=== PATIENT | female | born 1935 | race Caucasian/White ===

== ENCOUNTER → 2017-06-26 12:28 | Outpatient (CLI) | payer MEDICARE, SELFPAY ==
--- NOTE | 2017-06-26 12:37 | XR_ITS ---
XR shoulder RT min 2V HISTORY: Right shoulder pain ITS.REASON: RT ARM PAIN ORDERING PHYSICIAN: Roya Trevino PATIENT AGE: 82 years COMPARISON: None FINDINGS: No fracture or dislocation. No lytic or blastic change. There is normal mineralization. Mild osteoarthritis of the glenohumeral joint. The acromion is somewhat low-lying with subacromial stenosis there is an old fracture of the right eighth rib. IMPRESSION: No acute finding. Mild osteoarthritic change
--- NOTE | 2017-06-26 12:37 | XR_ITS ---
XR humerus RT CLINICAL INDICATION: ITS.REASON: RT ARM PAIN ORDERING PHYSICIAN: Roya Trevino PATIENT AGE: 82 years COMPARISON: None FINDINGS: No obvious fracture or dislocation. No lytic or blastic change. Mild osteoarthritic changes are present at the glenohumeral joint. IMPRESSION: No acute finding. Mild osteoarthritis of the glenohumeral joint
== END ==
PROVIDERS: PCP Nurse Practitioner Family; Visit Provider Nurse Practitioner Family
DX: M79.621 Pain in right upper arm (principal)
CPT/HCPCS: 73030; 73060

== ENCOUNTER → 2018-01-30 16:30 | Outpatient (CLI) | payer MEDICARE, SELFPAY ==
[2018-01-30 18:07] LABS: Basophils # 0.1 K/mm3 (0-0.2); Basophils % 1.3 % (0.1-2.0); Eosinophils # 0.2 K/mm3 (0.0-0.4); Eosinophils % 5.2 % (0.1-12.0); Hemoglobin 14.5 g/dL (12.2-16.2); Lymphocytes # 1.3 K/mm3 (0.7-4.5); Lymphocytes % 29.5 K/mm3 (10-50); Mean Corpuscular HGB Conc 32.3 g/dL (31.8-35.4); Mean Corpuscular Hemoglobin 28.9 pg (27.0-31.2); Mean Corpuscular Volume 89.4 fl (81-99); Mean Platelet Volume 8.2 fl (7.4-10.4); Monocytes # 0.3 K/mm3 (0.1-1.0); Monocytes % 5.8 % (1.7-9.3); Neutrophils # 2.5 K/mm3 (1.8-7.8); Neutrophils % 58.2 % (37.0-80.0); Platelet Count 180 K/mm3 (142-424); Red Blood Count 5.04 M/mm3 (4.20-5.40); White Blood Count 4.4 K/mm3 (4.8-10.8)
[2018-01-30 20:16] LABS: Anion Gap 10.3 mEq/L (5-15); Blood Urea Nitrogen 28 mg/dL (7-18); Carbon Dioxide 32 mmol/L (21.0-32.0); Chloride 111 mmol/L (98-107); Creatinine,Serum 0.86 mg/dL (0.55-1.02); Estimated Glomerular Filt Rate 63 ml/min (>60); GFR (African American) 76 ML/MIN (>60); Glucose 88 mg/dL (74-106); Potassium 4.3 mmoL/L (3.5-5.1); Sodium 149 mmol/L (136-145); T4 (Thyroxine) 8.4 ug/dl (4.7-13.3); Thyroid Stimulating Hormone 1.86 uIU/ml (0.358-3.740)
== END ==
PROVIDERS: Visit Provider Emergency Medicine
DX: I49.9 Cardiac arrhythmia, unspecified (principal); R01.1 Cardiac murmur, unspecified
CPT/HCPCS: 80048; 84436; 84443; 85025

== ENCOUNTER → 2018-10-19 12:34 | Outpatient (CLI) | payer MEDICARE, SELFPAY ==
--- NOTE | 2018-10-19 12:43 | XR_ITS ---
XR knee RT 3V HISTORY: ITS.REASON: pain ORDERING PHYSICIAN: Sheree Santacruz APRN PATIENT AGE: 83 years COMPARISON: None FINDINGS: There are moderate to severe osteoarthritic changes of the medial compartment and patellofemoral joint. There is mild lateral tibial subluxation of 7 mm. No fracture or dislocation. IMPRESSION: Moderate to severe osteoarthritis
--- NOTE | 2018-10-19 12:43 | XR_ITS ---
XR shoulder RT min 2V HISTORY: ITS.REASON: pain ORDERING PHYSICIAN: Sheree Santacruz APRN PATIENT AGE: 83 years Comparison: 06/26/2017 FINDINGS: There is moderate subacromial stenosis which may be seen with rotator cuff pathology. No fracture or dislocation. No lytic or blastic change. Mild osteoarthritic change also noted of the glenohumeral joint. IMPRESSION: Mild osteoarthritis of glenohumeral joint with moderate subacromial stenosis
--- NOTE | 2018-10-19 12:43 | XR_ITS ---
XR knee LT 3V HISTORY: ITS.REASON: pain ORDERING PHYSICIAN: Sheree Santacruz APRN PATIENT AGE: 83 years COMPARISON: None FINDINGS: There are moderate to severe osteoarthritic changes of the medial compartment and patellofemoral joint. No fracture or dislocation. Osteosclerosis involves the proximal tibia medially. IMPRESSION: Moderate to severe osteoarthritis of the medial compartment
--- NOTE | 2018-10-19 12:43 | XR_ITS ---
XR chest 2V HISTORY: Shortness of breath ITS.REASON: copd ORDERING PHYSICIAN: Sheree Santacruz APRN PATIENT AGE: 83 years COMPARISON: 09/23/2013 FINDINGS: Mild cardiomegaly without failure. No lobar consolidation or collapse. Pericardial fat pad suspected on the left. Severe degenerative changes are present in the shoulders with subacromial stenosis. IMPRESSION: No acute finding.. Mild cardiomegaly.
== END ==
PROVIDERS: PCP Nurse Practitioner Family; Visit Provider Nurse Practitioner Family
DX: J44.9 Chronic obstructive pulmonary disease, unspecified (principal); R05 Cough; M25.50 Pain in unspecified joint
CPT/HCPCS: 71046; 73030; 73562

== ENCOUNTER → 2020-02-16 14:08 | Outpatient (CLI) | payer MEDICARE, SELFPAY ==
[2020-02-17 11:06] LABS: Chloride 106 mmol/L (98-107); Potassium 3.9 mmoL/L (3.5-5.1); Sodium 143 mmol/L (136-145)
[2020-02-17 11:08] LABS: Blood Urea Nitrogen 20 mg/dl (7-17); Estimated Glomerular Filt Rate 68 ml/min (>60); GFR (African American) 83 ML/MIN (>60)
[2020-02-17 11:09] LABS: Alanine Aminotransferase 7 U/L (12-78); Albumin Level 3.3 g/dl (3.5-5.0); Albumin/Globulin Ratio 1.1 (1.1-1.8); Alkaline Phosphatase 61 U/L (38-126); Anion Gap 9.9 mEq/L (5-15); Aspartate Amino Transferase 22 U/L (14-36); Bilirubin,Total 0.7 mg/dl (0.2-1.3); Calcium 8.9 mg/dl (8.4-10.2); Carbon Dioxide 31 mmol/L (22.0-30.0); Cholesterol 167 mg/dl (140-200); Glucose 111 mg/dl (74-100); Total Protein,Serum 6.3 g/dl (6.3-8.2); Triglycerides 89 mg/dl (30-150); VLDL Cholesterol 18 mg/dL (0-40)
[2020-02-17 11:10] LABS: Chol/HDL Ratio 3.3 (1-3.5); HDL Cholesterol 50 mg/dl (40-60)
[2020-02-17 11:12] LABS: Basophils # 0.1 K/mm3 (0-0.2); Basophils % 1.9 % (0.1-2.0); Eosinophils # 0.2 K/mm3 (0.0-0.4); Eosinophils % 5.7 % (0.1-12.0); Hematocrit 45.9 % (37.0-47.0); Hemoglobin 14.9 g/dL (12.2-16.2); Lymphocytes # 1.2 K/mm3 (0.7-4.5); Lymphocytes % 30.8 % (10-50); Mean Corpuscular HGB Conc 32.6 g/dL (31.8-35.4); Mean Corpuscular Hemoglobin 29.9 pg (27.0-31.2); Mean Corpuscular Volume 91.7 fl (81-99); Mean Platelet Volume 10.1 fl (7.4-10.4); Monocytes # 0.3 K/mm3 (0.1-1.0); Monocytes % 7.3 % (1.7-9.3); Neutrophils # 2.2 K/mm3 (1.8-7.8); Neutrophils % 54.3 % (37.0-80.0); Platelet Count 160 K/mm3 (142-424); Red Cell Distribution Width 13.3 % (11.5-17.5)
[2020-02-17 11:21] LABS: Direct LDL Cholesterol 100.33 mg/dL (100-129)
[2020-02-17 11:26] LABS: T4 (Thyroxine) 8.5 ug/dl (5.53-11.0)
== END ==
PROVIDERS: Visit Provider Physician Assistant
DX: I10 Essential (primary) hypertension (principal)
CPT/HCPCS: 80053; 80061; 84436; 84443; 85025

== ENCOUNTER → 2020-03-01 14:27 | Outpatient (CLI) | payer MEDICARE, SELFPAY ==
--- NOTE | 2020-03-01 14:33 | XR_ITS ---
PROCEDURE: XR CHEST 2V CLINICAL HISTORY: Pain in left lung COMPARISON: CR CXR CHEST(2 VIEWS-NOT PORTABLE) from 09/23/2013 FINDINGS: The cardiomediastinal silhouette and pulmonary vascularity are within normal limits. Right hemidiaphragm is slightly elevated. There is mild patient rotation to the right causing some prominence of the right hilum. No lobar consolidation or collapse. No acute bony findings. There is mild thoracic kyphosis not significantly changed. IMPRESSION: No change with no acute finding Dictated by: Rob Hastings MD 03/01/2020 16:13 Rob Hastings MD in [facility] 03/01/2020 16:13
--- NOTE | 2020-03-01 14:33 | US_ITS ---
PROCEDURE: US THYROID CLINICAL INDICATION: Nodule right side of neck COMPARISON: CR XR CHEST 2V from 03/01/2020 FINDINGS: Right lobe: The right lobe is 3 x 1.3 x 1.3 cm. Unremarkable appearance Left lobe: 3 x 1.3 x 1.3 cm. A 16 x 12 by 11 mm solid-appearing nodules present in the mid polar region of the left lobe Isthmus: There is a mixed cystic and solid lesion involving the mid aspect of the isthmus projecting inferiorly. This measures 3 x 2.5 x 1.3 cm and is isoechoic. No calcifications. Well-defined margin. Wider than tall. There appears to be some internal calcifications. Additional findings: IMPRESSION: TR level 3 solid nodule left lobe. Less than 2.5 cm. Recommend six-month follow-up. TR level 3 nodule of the isthmus greater than 2.5 cm. Recommend fine needle aspiration. Dictated by: Rob Hastings MD 03/01/2020 18:05 Rob Hastings MD in [facility] 03/01/2020 18:05
== END ==
PROVIDERS: PCP Physician Assistant; Visit Provider Physician Assistant
DX: R07.89 Other chest pain (principal); R22.1 Localized swelling, mass and lump, neck
CPT/HCPCS: 71046; 76536

== ENCOUNTER → 2020-03-16 09:41 | Outpatient (CLI) | payer MEDICARE, SELFPAY ==
--- NOTE | 2020-03-16 09:59 | US_ITS ---
PROCEDURE: US FNA THYROID CLINICAL INDICATION: THYROID NODULE COMPARISON: US US THYROID from 03/01/2020 TECHNIQUE: Following obtaining informed consent, using aseptic technique and local anesthesia with buffered lidocaine, fine-needle aspiration was performed of the nodule of interest using sonographic guidance. Four passes were made into the nodule 3 with a 21 gauge needle and 1 with a 25 gauge needle. The specimen was very bloody. Specimen was given to cytology. The patient tolerated the procedure well without evidence of immediate complications and left the ultrasound suite in stable condition. FINDINGS: Complex nodule the isthmus noted as before targeted for biopsy. CYTOLOGY: Negative for malignant cells. Please see microscopic description. There are very rare follicular cells. Pathologist notes if there is a solid component additional sampling may be of value. There is a solid and cystic component to the nodule. IMPRESSION: Uneventful FNA of the isthmus nodule negative for malignant cells. The specimen was very bloody. Cytology suggested consistent with a cyst. Please see cytology report further recommendations Dictated by: Rob Hastings MD 04/07/2020 13:15 Rob Hastings MD in [place] 04/07/2020 13:15
== END ==
PROVIDERS: PCP Physician Assistant; Visit Provider Physician Assistant
DX: E04.1 Nontoxic single thyroid nodule (principal)
CPT/HCPCS: 10005; 76942; 88173; 88305

== ENCOUNTER 2021-03-20 12:08 | Inpatient (IN) | payer MEDICARE, SELFPAY ==
[2021-03-20] VITALS (9 sets, daily range): BP systolic 130–159; BP diastolic 60–85; PULSE 61–77; RESP 16–19; TEMP 36.6–37.4; O2SAT 92–98; BMI 34.7; BMI 32.2
--- NOTE | 2021-03-20 12:04 | HMH.EDGENADL ---
ED Disposition Clinical Impression: Confusion UTI (urinary tract infection) Qualifiers: Urinary tract infection type: acute pyelonephritis Qualified Code(s): N10 - Acute pyelonephritis Disposition: Admitted As Inpatient Condition on Discharge: Good Time of Disposition: 14:04 - Critical Care Critical Care Time: No Attestation: On , the high probability of a clinically significant, sudden or life threatening deterioration of the following system(s) required my full and direct attention, intervention and personal management. The time I documented below is in addition to time spent performing reported procedures but includes the following listed in this critical care notation. Medical Decision Making - Medical Records Medical records reviewed: Yes: I reviewed the patient's medical records. - Joe Inquiry Pt receiving controlled substance: No Vital Signs: 03/20/21 12:00 03/20/21 12:30 03/20/21 13:00 Temperature 99.3 F Temperature Source Oral Pulse Rate 65 64 Pulse Rate [Radial] 74 Respiratory Rate 18 Blood Pressure [Right Arm] 159/72 H Blood Pressure Mean [Right Arm] 101 Blood Pressure Position [Right Arm] Sitting 02 Sat by Pulse Oximetry 93 L 95 93 L Oxygen Delivery Method Room Air - Lab Data Lab results reviewed: Yes: I reviewed the patient's lab results. Lab Results 03/20/21 12:15: WBC 3.1 L, RBC 5.20, Hgb 15.0, Hct 47.5 H, MCV 91.4, MCH 28.8, MCHC 31.6 L, RDW 13.5, Plt Count 116 L, MPV 9.9, Neut % (Auto) 54.3, Lymph % (Auto) 33.7, Concho % (Auto) 8.9, Eos % (Auto) 1.1, Baso % (Auto) 2.1 H, Neut # (Auto) 1.7 L, Lymph # (Auto) 1.0, Concho # (Auto) 0.3, Eos # (Auto) 0.0, Baso # (Auto) 0.1 03/20/21 12:15: Sodium 140, Potassium 3.6, Chloride 100, Carbon Dioxide 34 H, Anion Gap 9.6, BUN 12, Creatinine 0.70, Estimated Creat Clear 56, Estimated GFR 80, Est GFR ( Amer) 96, Glucose 92, Calcium 8.2 L 03/20/21 13:29: Urine Color Yellow, Urine Appearance Turbid, Urine pH 6.5, Ur Specific Ponderosa 1.025, Urine Protein Trace, Urine Glucose (UA) Negative, Urine Ketones Negative, Urine Blood 1+, Urine Nitrate Negative, Urine Bilirubin Negative, Urine Urobilinogen 1.0, Ur Leukocyte Esterase 3+ A Result diagrams: 03/20/21 12:15 03/20/21 12:15 Orders (Tests/Meds): ORDERS Category Date Time Status Urinalysis and Microscopic Stat Lab 03/20/21 13:29 Results Urine Culture Stat Micro 03/20/21 13:29 Received - Radiology Data #1 Image(s): Foot/Toes Image Reviewed: Yes I have reviewed radiologist's interpretation Preliminary Findings: Normal/NAD Medical Decision Narrative: 85yo F evaluated for foot pain. Patient in no acute distress on this evaluation. Other than some bug bites to her skin, and hammertoe lesions, there is no acute finding to the patient's foot. The remainder of patient's physical exam is unremarkable except for a general disheveled appearance. Routine laboratory studies are collected. Blood work is benign. Urinalysis concerning for possible UTI. Start the patient on antibiotics. Also concerned the patient does not have a safe dispo home. Case discussed with Dr. Sheffield who agrees to admit the patient for further treatment. General Adult HPI - General Stated complaint: Left Foot Pain Time Seen by Provider: 03/20/21 12:04 Mode of Arrival: EMS Source of Information: Patient - History of Present Illness HPI narrative: 85yo F presents the emergency department secondary to left foot pain. Patient states left foot began causing her problems roughly 1 week ago. She denies any injury or fall. She denies previous surgery to that foot. She denies any fever, nausea/vomit/diarrhea. Denies any chest pain or shortness of breath. Patient is very aloof and does not provide much history. She reports that she has been crawling to the bathroom over the past week. She states there is nothing wrong with this. Reports she lives at home with family. EMS report the house was v
--- NOTE | 2021-03-20 12:05 | XR_ITS ---
PROCEDURE: XR FOOT LT MIN 3V CLINICAL INDICATION: pain COMPARISON: No exams were available for comparison FINDINGS: No fracture or dislocation. No lytic or blastic change. There is normal mineralization. There is diffuse osteopenia. Hammertoe deformity involves digits 2 through 5. There is pes cavum Other findings:None. IMPRESSION: Hammertoe deformity with diffuse osteopenia and pes cavum Dictated by: Rob Hastings MD 03/20/2021 12:29 Rob Hastings MD in [facility] 03/20/2021 12:29
[2021-03-20 12:27] LABS: Basophils # 0.1 K/mm3 (0-0.2); Basophils % 2.1 % (0.1-2.0); Eosinophils % 1.1 % (0.1-12.0); Hematocrit 47.5 % (37.0-47.0); Lymphocytes % 33.7 % (10-50); Mean Corpuscular HGB Conc 31.6 g/dL (31.8-35.4); Mean Corpuscular Hemoglobin 28.8 pg (27.0-31.2); Mean Corpuscular Volume 91.4 fl (81-99); Mean Platelet Volume 9.9 fl (7.4-10.4); Monocytes # 0.3 K/mm3 (0.1-1.0); Monocytes % 8.9 % (1.7-9.3); Neutrophils # 1.7 K/mm3 (1.8-7.8); Neutrophils % 54.3 % (37.0-80.0); Platelet Count 116 K/mm3 (142-424); Red Cell Distribution Width 13.5 % (11.5-17.5); White Blood Count 3.1 K/mm3 (4.8-10.8)
[2021-03-20 12:31] LABS: Chloride 100 mmol/L (98-107); Sodium 140 mmol/L (136-145)
[2021-03-20 12:32] LABS: Potassium 3.6 mmoL/L (3.5-5.1)
[2021-03-20 12:35] LABS: Anion Gap 9.6 mEq/L (5-15); Blood Urea Nitrogen 12 mg/dl (7-17); Calcium 8.2 mg/dl (8.4-10.2); Carbon Dioxide 34 mmol/L (22.0-30.0); Creatinine Clearance Estimated 56 mL/min (50-200); Estimated Glomerular Filt Rate 80 ml/min (>60); GFR (African American) 96 ML/MIN (>60); Glucose 92 mg/dl (74-100)
[2021-03-20 13:39] LABS: Microscopic, Urine URINE MICROSCOPIC (MICROSCOPIC)
[2021-03-20 13:41] LABS: Appearance,Urine TURBID (Clear); Bilirubin,Urine Negative (Negative); Blood, Urine 1+ (Negative); Color,Urine YELLOW (Yellow); Glucose,Urine (UA) Negative (Negative); Ketones,Urine Negative (Negative); Leukocyte Esterase,Urine 3+ (Negative); Nitrate,Urine Negative (Negative); PH,Urine 6.5 (5.0-8.5); Protein,Urine TRACE (Negative); Specific Gravity, Urine 1.025 (1.005-1.030)
[2021-03-20 13:56] LABS: Bacteria,Urine 1+ /lpf; WBC,Urine TNTC #/hpf (0-3)
--- NOTE | 2021-03-20 14:38 | PC.NURSE ---
report called to floor
[2021-03-20 15:45] LABS: Coronavirus 19, PCR Detected (NotDetected); Influenza A, PCR Not Detected (NotDetected); Influenza B, PCR Not Detected (NotDetected)
--- NOTE | 2021-03-20 16:28 | PC.NURSE ---
pt arrived to the floor at this time
--- NOTE | 2021-03-20 17:46 | PC.NURSE ---
PT IS A POOR HISTORIAN. 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
[2021-03-21 04:00] VITALS: BP 137/65; PULSE 66; RESP 17; TEMP 36.9; O2SAT 93
[2021-03-21 04:40] VITALS: BMI 33.6
[2021-03-21 07:10] LABS: Anion Gap 6.2 mEq/L (5-15); Blood Urea Nitrogen 12 mg/dl (7-17); Calcium 7.8 mg/dl (8.4-10.2); Carbon Dioxide 32 mmol/L (22.0-30.0); Chloride 103 mmol/L (98-107); Creatinine Clearance Estimated 50 mL/min (50-200); Estimated Glomerular Filt Rate 95 ml/min (>60); GFR (African American) 115 ML/MIN (>60); Glucose 85 mg/dl (74-100); Potassium 3.2 mmoL/L (3.5-5.1); Sodium 138 mmol/L (136-145)
--- NOTE | 2021-03-21 07:19 | HMH.PHAVTE ---
[facility] Pharmacy VTE Monitoring - Patient Demographics Admission date: 03/20/21 Report Date: 03/21/21 Time: 07:20 Allergies/Adverse Reactions: Patient Allergies Penicillins [PENICILLINS] Allergy (Mild, Verified 02/16/20 13:50) Height: 1.52 m Weight: 77.649 kg Patient Problems: Current Active Problems UTI (urinary tract infection) (Acute) Confusion (Acute) - VTE Risk Labs: VTE Related Lab Results Hgb 15.0 g/dL (12.2-16.2) 03/20/21 12:15 Hct 47.5 % (37.0-47.0) H 03/20/21 12:15 Plt Count 116 K/mm3 (142-424) L 03/20/21 12:15 BUN 12 mg/dl (7-17) 03/21/21 06:18 Creatinine 0.60 mg/dl (0.52-1.04) 03/21/21 06:18 Estimated Creat Clear 50 mL/min (50-200) 03/21/21 06:18 Clinical Trial Participant: No - Prophylaxis VTE Prophylaxis Ordered?: Yes Types of VTE Prophylaxis: IPCS Knee High, Pharmacological Pharmacologic Type: Enoxaparin
[2021-03-21 07:36] LABS: Basophils % 0.7 % (0.1-2.0); Eosinophils % 0.6 % (0.1-12.0); Hematocrit 44.5 % (37.0-47.0); Hemoglobin 13.6 g/dL (12.2-16.2); Lymphocytes # 1.1 K/mm3 (0.7-4.5); Lymphocytes % 44.9 % (10-50); Mean Corpuscular HGB Conc 30.6 g/dL (31.8-35.4); Mean Corpuscular Hemoglobin 28.9 pg (27.0-31.2); Mean Corpuscular Volume 94.3 fl (81-99); Mean Platelet Volume 9.1 fl (7.4-10.4); Monocytes # 0.2 K/mm3 (0.1-1.0); Monocytes % 8.3 % (1.7-9.3); Neutrophils # 1.1 K/mm3 (1.8-7.8); Neutrophils % 45.5 % (37.0-80.0); Platelet Count 97 K/mm3 (142-424); Red Blood Count 4.72 M/mm3 (4.20-5.40); Red Cell Distribution Width 12.9 % (11.5-17.5); White Blood Count 2.4 K/mm3 (4.8-10.8)
[2021-03-21 08:00] VITALS: BP 147/62; PULSE 71; RESP 17; TEMP 37.4; O2SAT 94
--- NOTE | 2021-03-21 10:01 | PC.NURSE ---
Confirmed w/ Chio @ [facility] APRN's office that pt had a behavioral health consult. Office is already aware.
--- NOTE | 2021-03-21 11:44 | P.CONS_ITS ---
*Admission Date: 03/20/21 *Reason for consult:: confusion *History of present illness: I interviewed Pauly. She is alone in her room. Asleep; but wakes up to name. -she is alerted easily -oriented to person; place; situation -told me the date was March 21, 2022 -knows where she is -she states very quickly in the interview that she needs to get home -that she only makes $1000 per month -and it costs $1000 per day to stay here -she states that she can't stay here much long; cause she will spend her life paying the place off -I informed her not to worry that her insurance will cover this -this seeped to appease her for a minute -she would quickly forget and ask about the costs a few minutes later -asked about this several times in the 20 minutes I was in her room She states that she came to the hospital cause she was feeling really weak. -denies any depression or anxiety -states that this is not something she has struggle with She currently lives with her son; daughter in law; and their 2 kids -she states that her son does the cooking for them -I asked who takes care of everything else; she states that they expect her to do the laundry and the cleaning -she then states that they fold the laundry wrong anyways -so she might as well do it herself She states that she takes herself to the bathroom; and does her own showers or baths. -that she has fallen 2 times in the past month or so -that her son will come in the bathroom if she falls -but doesn't help her up -will just look at her -I asked if she felt safe there at the house. -she did not elaborate; the only thing she would say about this was 'I'm stuck between a rock and a hard place' -she states that the son and daughter in law would call her lazy all the time -that the house wasn't clean cause she was lazy -then when they found out that she has COVID 19; they are being nicer to her I did call and talk to Adriana (health care social worker) regarding the above. RECOMMENDATIONS: 1. no medications at this time; do not feel these are warranted 2. Placement in a short-term rehab facility; but may need long-term care TIME IN: 1115 TIME OUT: 1135 [facility] History Medical History: Reports:: Hypertension Denies:: Cancer, Diabetes Mellitus Type 1, Diabetes Mellitus Type 2, MRSA *Have you ever received a pneumonia vaccine?: No *Have you received a flu vaccine this season?: No Other Surgeries: Yes: Cholecystectomy, Other Amputation: No Fractures: No - *Social History Last grade of school completed: High school graduate Smoking Status: Never smoker Alcohol Intake: never Substance Use Type: denies use *Occupational Status:: retired Housing: house Household Members: family, children *Travel in the last 8 weeks: None Family Hx:: No significant family history Meds Home Medications Medication Instructions Recorded Confirmed Type No Known Home Medications 03/20/21 03/20/21 History Allergies Allergy/AdvReac Type Severity Reaction Status Date / Time Penicillins [PENICILLINS] Allergy Mild Verified 02/16/20 13:50
--- NOTE | 2021-03-21 12:42 | SW/DCPLANNER ---
Addendum entered by Adriana Boyer 03/27/21 13:26: Patient is now established with [facility] health services. Gilbert Nelson with [facility] services will begin this week for this patient. I will let Jaden with [facility] know. Addendum entered by Adriana Boyer 03/26/21 14:21: Lizett laughlin/ Gael has stated that home concentrator will be delivered to patients home this evening. I have requested that [facility] have the delivery driver assistant call once in route so we can discharge the patient home once concentrator is in route. Aliya Saba was fine with patient taking home portable O2 tank. Michael with [facility] is not able to accept this patient due to insurance. Patient information/order has been faxed to [facility]. Addendum entered by Adriana Boyer 03/26/21 13:45: Aliya Saba has just called back stating they are not in network with this patients insurance. I have faxed patient information/order to [facility]: I will follow up once patient information is reviewed. [facility] can not service this patient due to being out of network. Michael with [facility] is currently reviewing patient information. If [facility] can not service patient will have to be set up with [facility] and services to begin on 04/02 due to being COVID positive. Addendum entered by Adriana Boyer 03/26/21 11:52: CORRECTION: patient information/order for home health has been faxed to Joan laughlin/ [facility]. Aliya Saba has confirmed that DME/O2 will be delivered today. Addendum entered by Adriana Boyer 03/26/21 11:43: Sharlene with [facility] completed mini mental via Zoom on this patient this AM. Sharlene has stated that patient is competent enough to return home from APS standpoint. Sharlene has also stated that she will be following up with patient at home. [facility] and [facility] O[facility]/ portable O2/ rolling walker. Patient is also agreeable to home health services at this time. Patient information/order will be faxed to [facility] at time of discharge. Patient could discharge later today. I will contact patients son once medically stable for discharge for transportation. Addendum entered by Joan Ritchie 03/23/21 13:30: SPOKE WITH SHARLENE, MARKETING PROGRAM MANAGER WITH [facility] TODAY VIA PHONE REGARDING DOING A ZOOM WITH THIS PATIENT... SHARLENE STATED SHE DIDN'T NEED TO SPEAK WITH HER TODAY SHE WILL DO A ZOOM ON FRIDAY BECAUSE SHE PLANS TO DO A MINI MENTAL ON THIS PATIENT.. SHARLENE ASKED ME TO CALL THE SON RUTHIE AND FIND OUT WHAT THE PLAN IS FOR MS VALE WHEN SHE IS READY TO DISCHARGE... I DID CALL HIM AND HE SAID HIS MOTHER IS GOING TO RETURN HOME AND WAS ADAMANT SHE WAS NOT GOING TO GET PLACED.. HE STATED HE HAS TRIED MULTIPLE TIMES TO CALL HIS MOTHER AND THE HOSPITAL PHONE DOESN'T WORK AND NEITHER DOES HER CELL PHONE..I CALLED HIS NURSE, THAO AND ASKED HIM TO CALL MR VALE BECAUSE HE HAS SOME QUESTIONS...WHEN I CALLED HIS NUMBER, HIS ANSWERED HIS PHONE, HER NAME IS DAVID VALE. SHARLENE ASKED IF I COULD GET HER NAME. SHARLENE PER HER REQUEST ASKED IF I WOULD FAX AND H&P TO HER SO THEY CAN REVIEW HER INFORMATION, SHE ALSO ASKED IF I WOULD MAKE A CALL TO CPS STATING THE 3 YR OLD AND MIDDLE SCHOOL CHILD IS LIVING IN DEPLORABLE CONDITIONS..I TOLD HER I WOULD MAKE A CALL BUT WHAT I AM REPORTING IS ONLY HEAR SAY AND I CAN NOT VALIDATE ANY OF IT...I DID MAKE THE REPORT ON THE CHILDREN IN THE HOME WITH AN ID#[id number]... Addendum entered by Adriana Boyer 03/22/21 15:30: Sharlene has stated that she will need to complete another Zoom assessment tomorrow morning. I have relayed information and Joan Germain will follow up with Sharlene and patient. Patient is no longer agreeable to placement at this time. Addendum entered by Adriana Boyer 03/22/21 15:00: CORRECTION: Sharlene laughlin/ [facility] is currently doing a Zoom call with this patient that I have set up. I will continue to follow up with Sharlene regarding plan of care and Keeley with [facility] regarding referral. Patient was agreeable
--- NOTE | 2021-03-21 13:08 | PC.NURSE ---
Pt is alert and oriented x4 but some periods of confusion noted. Lungs are clear, bowel sounds active x4. She remains on RA and tolerating well. Edema and erythema noted to BLE, R>L. HERMILO has +3 edema. She reports having a loose stool in the am and was unable to make it to the [facility]. Pt was cleaned up by JULIO CESAR Gaspar. Appetite is OK. Pt denies any complaints.
--- NOTE | 2021-03-21 13:57 | CA_ITS ---
APPROVED REPORT EXAM: Comprehensive 2D, Doppler, and color-flow Echocardiogram Account Services Coordinator: Moraima Menezes CRT Ht: 4 ft 11 in Wt: 171lbs BSA: 1.73 BP: 147/62 mmHg Indications: Atrial Fibrillation, Hypertension/HDD 2D Dimensions LVOT 1.49 cm (M/F) 1.5-2.5 LA Volume 62.70 mL LA Volume Index 36.20 mL/m2 (M/F) 16-34 M-Mode Dimensions RVDd 2.14 cm (0.9-2.6) LA Diam 4.70 cm (1.9-4.0) LVDd 4.39 cm (3.5-5.7) Ao Diam 4.06 cm (2.0-3.7) LVDs 3.30 cm (3.5-5.7) IVSd 2.26 cm (0.6-1.1) PWd 1.45 cm (0.6-1.1) EF (Teich) 49.40% FS 24.80% EDV (Teich) 87.20 mL ESV (Teich) 44.10 mL LV Diastology E Decel Time 153.00 (160-240 msec) E/A Ratio 1.13 MED E' 3.30 (< 7 cm/sec) MED A' 5.80 cm/s E'/MED E' Ratio 24.70 (>14) LAT E' 3.10 (<10 cm/sec) LAT A' 7.60 cm/s E/LAT E' Ratio 26.29 (>14) Aortic Valve LVOT Max 207.00 (70-110 cm/s) LVOT VTI 52.78 cm AoV Peak Pola. 330.00 (50-130 cm/s) AI PHT 480.00 ms AO Peak GR. 43.70 mmHg AO Mean GR. 25.90 (<5 mmHg) AO VTI 71.92 (18-25 cm) BAUDILIO (VTI) 1.28 (2.5-4.5 cm2) Mitral Valve MV A Velocity 72.00 (40-130 cm/s) E/A Ratio 1.13 MV Decel. Time 153.00 (160-240 ms) Pulmonary Valve PV Peak Velocity 238.00 (50-150 cm/s) Tricuspid Valve TR P. Velocity 397.00 cm/s RAP Estimate 10.00 mmHg RVSP 72.90 mmHg Left Ventricle Left atrium is mildly enlarged, left ventricle is normal size, mild concentric left ventricular hypertrophy, visually estimated ejection fraction 55 to 60% with no regional wall motion abnormality, diastolic parameters are inconclusive in the study. Right Ventricle Right atrium and right ventricle are normal size and contractility. Aortic Valve Aortic valve is thickened and calcified, mean gradient across valve is 27 mmHg, valve area is 1.13 cm??? represents moderate aortic stenosis, there is mild aortic insufficiency. Mitral Valve Mitral valve has mitral annular calcification, leaflets are minimally thickened, there is no mitral stenosis, there is mild mitral regurgitation. Tricuspid Valve Tricuspid valve grossly normal, there is mild tricuspid regurgitation, calculated right ventricular systolic pressure is 50 mmHg. Pulmonic Valve Pulmonic valve is poorly visualized. Great Vessels Aortic root is normal size. Inferior vena cava is mildly dilated with normal inspiratory collapse. Pericardium No significant pericardial effusion noted. Conclusion 1. Mildly enlarged left atrium, normal left ventricular size, mild concentric left ventricular hypertrophy, visually estimated ejection fraction 55% with no regional wall motion abnormality, diastolic parameters are inconclusive in the study. 2. Thickened and calcified aortic valve with mean gradient across valve of 27 mmHg, valve area is 1.13 cm??? represents moderate aortic stenosis, there is mild aortic insufficiency. 3. Mild mitral and tricuspid regurgitation. Calculated right ventricular systolic pressure is 50 mmHg. 4. No significant pericardial effusion noted. 5. Inferior vena cava is mildly dilated with normal inspiratory collapse. Electronically signed by : Michael Sahu MD 03/22/2021 16:35:54
[2021-03-21 14:07] VITALS: BMI 33.7
[2021-03-21 16:00] VITALS: BP 145/70; PULSE 68; RESP 18; TEMP 36.8; O2SAT 91
--- NOTE | 2021-03-21 16:35 | XR_ITS ---
PROCEDURE INFORMATION: Exam: XR Chest Exam date and time: 03/21/2021 4:35 PM Age: 85 years old Clinical indication: Shortness of breath; Additional info: Covid TECHNIQUE: Imaging protocol: XR of the chest. Views: 1 view. COMPARISON: CR XR CHEST 2V 03/01/2020 2:59 PM FINDINGS: Lungs: Unremarkable. No consolidation. Pleural spaces: Unremarkable. No pleural effusion. No pneumothorax. Heart/Mediastinum: Unremarkable. No cardiomegaly. Bones/joints: Unremarkable. IMPRESSION: No acute findings.
--- NOTE | 2021-03-21 16:42 | HMH.HP ---
*Admission Date: 03/20/21 *Chief complaint: foot pain *History of present illness: 85 yr old female presents the emergency department secondary to left foot pain. Patient states left foot began causing her problems roughly 1 week ago. She denies any injury or fall. Denies any chest pain or shortness of breath. Patient is very aloof and does not provide much history. She reports that she has been crawling to the bathroom over the past week, due to pain. Per ed note EMS report the house was very poorly kept. Ems stated they were rodents on the floor and the house was full of bugs. The patient is covered in bedbugs. Pt admitted for covid and foot pain. [facility] History I have reviewed the patient's past medical history: Yes Medical History: Reports:: Hypertension Denies:: Cancer, Diabetes Mellitus Type 1, Diabetes Mellitus Type 2, MRSA *Have you ever received a pneumonia vaccine?: No *Have you received a flu vaccine this season?: No Other Surgeries: Yes: Cholecystectomy, Other Amputation: No Fractures: No - *Social History Last grade of school completed: High school graduate Smoking Status: Never smoker Alcohol Intake: never Substance Use Type: denies use *Occupational Status:: retired Housing: house Household Members: family, children *Travel in the last 8 weeks: None Family Hx:: No significant family history Review of Systems - Review of Systems Review of systems:: pertinent systems reviewed and negative unless documented below - Constitutional Denies body ache(s), Denies lack of energy - Eyes Denies blurry vision - ENT Denies ear pain, Denies sore throat - *Cardiovascular Denies chest pain at rest - *Respiratory Denies shortness of breath - *Gastrointestinal Denies belching - *Genitourinary Denies difficulty urinating - *Musculoskeletal Denies joint pain - Integumentary/Breasts Reports itching, Denies rash - *Neurologic Denies dizziness - Psychiatric Denies lack of enjoyment - Endocrine Denies excessive sweating - Hematologic/Lymphatic Denies easy bruising - Allergic/Immunologic Denies GI upset with certain foods Meds Home Medications Medication Instructions Recorded Confirmed Type No Known Home Medications 03/20/21 03/20/21 History Allergies Allergy/AdvReac Type Severity Reaction Status Date / Time Penicillins [PENICILLINS] Allergy Mild Verified 02/16/20 13:50 Exam Vital signs and Labs for Last 24 Hours: Temp Pulse Resp BP Pulse Ox 98.2 F 68 18 145/70 H 91 L 03/21/21 16:00 03/21/21 16:00 03/21/21 16:00 03/21/21 16:00 03/21/21 16:00 Laboratory Results - last 24 hr 03/21/21 06:18: WBC 2.4 L, RBC 4.72, Hgb 13.6, Hct 44.5, MCV 94.3, MCH 28.9, MCHC 30.6 L, RDW 12.9, Plt Count 97 L, MPV 9.1, Neut % (Auto) 45.5, Lymph % (Auto) 44.9, Yancey % (Auto) 8.3, Eos % (Auto) 0.6, Baso % (Auto) 0.7, Neut # (Auto) 1.1 L, Lymph # (Auto) 1.1, Yancey # (Auto) 0.2, Eos # (Auto) 0.0, Baso # (Auto) 0.0 03/21/21 06:18: Sodium 138, Potassium 3.2 L, Chloride 103, Carbon Dioxide 32 H, Anion Gap 6.2, BUN 12, Creatinine 0.60, Estimated Creat Clear 50, Estimated GFR 95, Est GFR ( Amer) 115, Glucose 85, Calcium 7.8 L I & O for Last 24 hours: Intake & Output 03/19/21 03/20/21 03/21/21 03/22/21 11:59 11:59 11:59 11:59 Intake Total 180 / 180 420 / 420 Output Total 0 / 0 Balance 180 / 180 420 / 420 Weight 171 lb 3 oz 171 lb 15.369 oz Microbiology Reports for the Last 24 Hours: Microbiology 03/20/21 13:29 Urine,Catheterized Urine Culture - Preliminary NO GROWTH AFTER 24 HOURS - Constitutional no acute distress - *Routine HEENT Exam Head: Present: normocephalic Eye: Present: PERRL ENT: Present: mucous membranes moist - *Routine Neck Exam Present: supple. Absent: lymphadenopathy - *Routine Respiratory Exam Present: CTA bilaterally - *Routine Cardiovascular Exam Present: RRR, murmur - *Routine A
--- NOTE | 2021-03-21 16:52 | HMH.ORTHOCON ---
*Admission Date: 03/20/21 <Kathleen Pendleton - 03/21/21 16:54> *Reason for consult:: Left foot pain <Kathleen Pendleton - 03/21/21 16:54> *History of present illness: 85 yr old female presents the emergency department secondary to left foot pain. Patient states left foot began causing her problems roughly 1 week ago. She denies any injury or fall. Denies any chest pain or shortness of breath. Patient is very aloof and does not provide much history. She reports that she has been crawling to the bathroom over the past week, due to pain. Per ed note EMS report the house was very poorly kept. Ems stated they were rodents on the floor and the house was full of bugs. The patient is covered in bedbugs. Pt admitted for covid and foot pain. Podiatry consult for left foot pain: Patient was resting in the bed when upon entering the room alert and oriented. Patient stated she was having some pain in the left foot mostly to the heel and to the lateral ankle area. Patient states left foot began causing her problems roughly 1 week ago. She denies any injury or fall. There was some mild ankle edema noted. Pain is worse in the morning she stated when putting her foot down she starts to have pain in the heel but while sitting in the bed with her foot resting she denied any pain at this time. Patient had multiple little red dots (possible bug bites) scattered throughout her toes dorsal foot extending up the lower extremities. Patient history noted from the emergency room EMS report states the patient had some bedbug infestation and had bedbugs on her skin. There was no bedbugs noted upon my assessment. Xrays 3V 03/20/21 from her Left foot findings : no fracture or dislocation, hammertoe deformity with diffuse osteopenia with pes cavus deformity. Lateral view of the left foot displays some mild osteoarthritis in the ankle area and midfoot along the lateral malleolus. Skin is intact overall no openings or breaks noted no wounds to her toes or b/L feet. Trace of bilateral pedal edema noted patient does not require any dressings or surgical intervention at this time. Patient assessment findings her to have left foot plantar fasciitis, mild osteoarthritis of left foot/ankle. Discussed with patient treatment options for plantar fasciitis as well as arthritis is basically doing some mild stretching demonstrated to her how to stretch the plantar fascia while she is even sitting in the bed. Patient may apply ice pack to the heel or plantar fascia to help relieve some of the discomfort and edema to the plantar fascia. Elevate the foot as needed on a pillow to reduce swelling and pain. Patient should continue just conservative measures at this time. f <Kathleen Pendleton 03/21/21 17:39> [facility] History I have reviewed the patient's past medical history: Yes <Kathleen Pendleton Syeda 03/21/21 17:39> Medical History: Reports:: Hypertension Denies:: Cancer, Diabetes Mellitus Type 1, Diabetes Mellitus Type 2, MRSA <ReagangallitoKathleen L 03/21/21 16:54> *Have you ever received a pneumonia vaccine?: No <KeerthiKathleen L 03/21/21 16:54> *Have you received a flu vaccine this season?: No <Kathleen Pendleton 03/21/21 16:54> Other Surgeries: Yes: Cholecystectomy, Other <KailaalexisKathleen Syeda 03/21/21 16:54> Amputation: No <Kathleen Pendleton 03/21/21 16:54> Fractures: No <KeerthiKathleen L 03/21/21 16:54> - *Social History Last grade of school completed: High school graduate <KeerthiKathleen L 03/21/21 16:54> Smoking Status: Never smoker <Kathleen Pendleton 03/21/21 16:54> Alcohol Intake: never <Kathleen Pendleton 03/21/21 16:54> Substance Use Type: denies use <Kathleen Pendleton 03/21/21 16:54> *Occupational Status:: retired <Kathleen Pendleton 03/21/21 16:54> Housing: house <Kathleen Pendleton 03/21/21 16:54> Household Members: family, children <Kathleen Pendleton 03/21/21 16:54> *Travel in the last 8 weeks: None <Kathleen Pendleton 03/21/21 16:54> Family Hx:: N
[2021-03-21 18:39] LABS: C-Reactive Protein 2.3 mg/L (0-4)
[2021-03-21 19:10] LABS: Ferritin 297 ng/ml (11.1-264)
[2021-03-21 19:40] LABS: D-Dimer 0.79 ug/mL (0.0-0.5)
[2021-03-21 20:00] VITALS: BP 130/68; PULSE 64; RESP 17; TEMP 36.6; O2SAT 93
[2021-03-22] VITALS (8 sets, daily range): BP systolic 134–163; BP diastolic 59–74; PULSE 63–66; RESP 16–20; TEMP 36.6–37.2; O2SAT 91–98; BMI 33.7
--- NOTE | 2021-03-22 04:53 | PC.NURSE ---
pt independent, up to bedside commode with minimal to no assist. pt complains of pain in bottom of foot upon standing. uneventful evening, slept most of the nigh, V/S stable, axo x3.
[2021-03-22 07:27] LABS: Basophils % 0.6 % (0.1-2.0); Hematocrit 44.9 % (37.0-47.0); Hemoglobin 14.3 g/dL (12.2-16.2); Lymphocytes # 1.3 K/mm3 (0.7-4.5); Lymphocytes % 42.7 % (10-50); Mean Corpuscular HGB Conc 31.9 g/dL (31.8-35.4); Mean Corpuscular Hemoglobin 29.2 pg (27.0-31.2); Mean Corpuscular Volume 91.5 fl (81-99); Monocytes # 0.2 K/mm3 (0.1-1.0); Monocytes % 5.8 % (1.7-9.3); Neutrophils # 1.5 K/mm3 (1.8-7.8); Neutrophils % 49.9 % (37.0-80.0); Platelet Count 98 K/mm3 (142-424); White Blood Count 3.1 K/mm3 (4.8-10.8)
[2021-03-22 07:53] LABS: Alanine Aminotransferase 10 U/L (12-78); Albumin/Globulin Ratio 1.1 (1.1-1.8); Alkaline Phosphatase 54 U/L (38-126); Anion Gap 7.2 mEq/L (5-15); Aspartate Amino Transferase 33 U/L (14-36); Bilirubin,Total 0.6 mg/dl (0.2-1.3); Blood Urea Nitrogen 14 mg/dl (7-17); Calcium 7.8 mg/dl (8.4-10.2); Carbon Dioxide 33 mmol/L (22.0-30.0); Chloride 103 mmol/L (98-107); Creatinine Clearance Estimated 51 mL/min (50-200); Estimated Glomerular Filt Rate 95 ml/min (>60); GFR (African American) 115 ML/MIN (>60); Globulin 2.8 g/dL (1.3-3.2); Glucose 83 mg/dl (74-100); Potassium 3.2 mmoL/L (3.5-5.1); Sodium 140 mmol/L (136-145); Total Protein,Serum 5.8 g/dl (6.3-8.2)
--- NOTE | 2021-03-22 09:19 | HMH.ACPN2 ---
Internal Medicine - PN: Subj *Date: 03/22/21 *Time: 15:08 Interval history: 85-year-old female patient sitting up in bed resting quietly, she denies any shortness of breath or respiratory distress during the night. She is up to the bedside commode and is tolerating all meals without difficulty. Exam Vital signs and Labs for Last 24 Hours: Temp Pulse Resp BP Pulse Ox 98.7 F 66 16 149/67 H 93 L 03/22/21 08:00 03/22/21 08:00 03/22/21 08:00 03/22/21 08:00 03/22/21 08:00 Laboratory Results - last 24 hr 03/21/21 16:04: D-Dimer 0.79 H 03/21/21 16:04: Ferritin 297 H, C-Reactive Protein 2.3 03/22/21 06:52: Sodium 140, Potassium 3.2 L, Chloride 103, Carbon Dioxide 33 H, Anion Gap 7.2, BUN 14, Creatinine 0.60, Estimated Creat Clear 51, Estimated GFR 95, Est GFR ( Amer) 115, Glucose 83, Calcium 7.8 L, Total Bilirubin 0.6, AST 33, ALT 10 L, Alkaline Phosphatase 54, Total Protein 5.8 L, Albumin 3.0 L, Globulin 2.8, Albumin/Globulin Ratio 1.1 03/22/21 06:52: WBC 3.1 L D, RBC 4.90, Hgb 14.3, Hct 44.9, MCV 91.5, MCH 29.2, MCHC 31.9, RDW 13.0, Plt Count 98 L, MPV 9.0, Neut % (Auto) 49.9, Lymph % (Auto) 42.7, [place] % (Auto) 5.8, Eos % (Auto) 1.0, Baso % (Auto) 0.6, Neut # (Auto) 1.5 L, Lymph # (Auto) 1.3, [place] # (Auto) 0.2, Eos # (Auto) 0.0, Baso # (Auto) 0.0 I & O for Last 24 hours: Intake & Output 03/19/21 03/20/21 03/21/21 03/22/21 23:59 23:59 23:59 23:59 Intake Total 120 / 120 600 / 600 120 / 120 Output Total 0 / 0 Balance 120 / 120 600 / 600 120 / 120 Weight 165 lb 1 oz 171 lb 15.369 oz 171 lb 9.6 oz Microbiology Reports for the Last 24 Hours: Microbiology 03/20/21 13:29 Urine,Catheterized Urine Culture - Preliminary NO GROWTH AFTER 24 HOURS - Constitutional no acute distress, chronically ill appearing - *Routine HEENT Exam Head: Present: normocephalic Eye: Present: EOMI ENT: Present: mucous membranes moist - *Routine Neck Exam Present: supple, trachea midline. Absent: tracheal deviation - *Routine Respiratory Exam Present: CTA bilaterally. Absent: accessory muscle use - *Routine Cardiovascular Exam Present: RRR - *Routine Abdominal Exam Present: soft, normoactive bowel sounds. Absent: tenderness, distended - *Routine Extremities Exam Present: full ROM, pulses intact. Absent: cyanosis, clubbing - *Routine Skin Exam Present: intact, dry, warm. Absent: cyanosis, erythema - *Routine Neurological Exam Present: alert, oriented X3. Absent: motor deficit - Routine Psychiatric Exam Present: normal affect, normal thought process. Absent: auditory hallucinations Assessment and Plan (1) COVID Status: Acute Category: Medical Code(s): U07.1 - COVID-19 (2) Confusion Status: Acute Category: Medical Code(s): R41.0 - Disorientation, unspecified (3) UTI (urinary tract infection) Status: Acute Qualifiers: Urinary tract infection type: acute pyelonephritis Qualified Code(s): N10 - Acute pyelonephritis Category: Medical Code(s): N39.0 - Urinary tract infection, site not specified (4) HTN (hypertension) Status: Acute Qualifiers: Hypertension type: essential hypertension Category: Medical Code(s): I10 - Essential (primary) hypertension (5) Heart murmur Status: Acute Category: Medical Code(s): R01.1 - Cardiac murmur, unspecified (6) Onychodystrophy Start date: 03/21/21 Status: Acute Category: Medical Code(s): L60.3 - Nail dystrophy (7) Onychomycosis Start date: 03/21/21 Status: Acute Category: Medical Code(s): B35.1 - Tinea unguium (8) Onychoincurvatum Start date: 03/21/21 Status: Acute Category: Medical Code(s): L60.8 - Other nail disorders (9) Acquired pes cavus Start date: 03/21/21 Status: Acute Category: Medical Code(s): M21.6X9 - Other acquired deformities of unspecified foot (10) Acquired hammer toes of both feet Start date: 03/21/21 St
--- NOTE | 2021-03-22 11:17 | HMH.OTEV ---
OT Inpatient Evaluation Rehab OT IP Evaluation Start: 03/22/21 09:43 Freq: ONCE Status: Complete Protocol: Document 03/22/21 11:06 RAINE (Rec: 03/22/21 11:17 [id number] Rehab OT IP Assessment Subjective History Pt oriented x 3 on arrival. Pt agreeable to engage in therapy evaluation. Pt was admitted via ED on 03/20/21 due to UTI, COVID, and L foot pain. Pt has a past medical history of Cancer, Hypertension. According to reports, pt was crawling back and forth to bathroom because of foot pain. She also had a poor living environment. Pt did demonstrate delay with answering questions. At times it would take her ~10-15 seconds before answering. She did become defensive when therapist tried to apply a gait belt for safety; she refused the device and said I don't need that . Pt reports she lived at home with her song, daughter in law, and two grandkids. Pt claims she babysits the 3 year old grandchild often. Pt says she was independent with all ADLs and IADLs. She did not use AE during ambulation. Subjective What do you all want me to do . Pt resting in bed on arrival. Pt agreeable to engage in therapy evaluation. Pt completed bed mobility and went from supine to sitting at eob with sba. Pt was sba to complete lower body dressing and don socks. Pt stood from eob with min assist. Pt was only able to take two steps with min assist. Pt was a bit off balance, but complained of foot pain. Pt sat back down at eob and completed bed mobility and went from sitting
--- NOTE | 2021-03-22 11:26 | HMH.PTEV ---
Physical Therapy Evaluation Rehab PT IP Evaluation Start: 03/22/21 09:42 Freq: ONCE Status: Active Protocol: Document 03/22/21 11:02 ARUN (Rec: 03/22/21 11:26 ARUN [id number]) Subjective/History History History This is the initial evaluation for Pauly Montilla. Pt is an 85 y/o female admitted to [facility] for L foot pain that began 1 week ago. Pt found to have Cellulitis in LE's and positive for COVID19. Upon evaluation, pt was very slow to answer questions and demonstrated some confusion. - note done by Susanne Duque, SPT Subjective Subjective Pt states she lives at home with her son, [id number] and their two children. Pt reports she did not use an AD to get around her house and denies any hx of falls. Pt reports she was independent with most ADL's as well as responsible for babysitting her 3 y/o grandchild. Pt denies useing any type of O2 suppementation at home. Pt reports great pain in her L foot at this time. Rehab PT IP Eval Objective Appearance Patient Behavior Cooperative,Fatigued,Guarded, Confused Patient Orientation Place,Name,Birthday,Year Difficulty following instructions mild Speech Pattern Clear,Appropriate,Coherent, Monotone,Mumbled Ambulation Patient Able to Ambulate No Balance Ability to Arise Able, uses arms to help Sitting Balance Steady, safe Standing Balance Unsteady Dynamic Sitting Balance Ability Fair Dynamic Standing Balance Ability Poor Transfers Bed Transfer Ability Independent Sit to Stand Bed Transfer Ability Minimal x 1 (25% assist) Rehab PT IP prob,goals,plan Problems Date of Evaluation: 03/22/21 PT IP Problems Transfers,Gait,Balance,Self care,Safety Rehab Potential Rehab Potential Fair Equipment Needs Assistive Devices Rolling / Wheeled Walker Plan PT Intervention Plan Transfers,Gait,Balance,Self care,Safety,Therapeutic
--- NOTE | 2021-03-22 11:46 | HMH.PULMCON ---
*Admission Date: 03/20/21 *Reason for consult:: #COVID-19 pneumonia *History of present illness: Ms. Montilla is a 85-year-old male no significant smoking history, no prior respiratory complaints presented to the hospital complaining of foot pain and was screened for COVID-19 pneumonia and tested positive and pulmonary was called for further management. [facility] History Medical History: Reports:: Hypertension Denies:: Cancer, Diabetes Mellitus Type 1, Diabetes Mellitus Type 2, MRSA *Have you ever received a pneumonia vaccine?: No *Have you received a flu vaccine this season?: No Other Surgeries: Yes: Cholecystectomy, Other Amputation: No Fractures: No - *Social History Last grade of school completed: High school graduate Smoking Status: Never smoker Alcohol Intake: never Substance Use Type: denies use *Occupational Status:: retired Housing: house Household Members: family, children *Travel in the last 8 weeks: None Family Hx:: No significant family history ROS - Cons Reports anorexia, Denies body ache(s) - ENT Denies bleeding gums - Card Denies shortness of breath with activity - Resp Respiratory: Denies shortness of breath, Denies change in phlegm color, Denies chest congestion, Denies cough, Denies non-productive cough, Denies dyspnea, Denies excessive phlegm production, Denies coughing up blood - GI Gastrointestingal: Denies: abdominal pain - [place] Musculoskeletal: Reports abnormal gait Meds Home Medications Medication Instructions Recorded Confirmed Type No Known Home Medications 03/20/21 03/20/21 History Allergies Allergy/AdvReac Type Severity Reaction Status Date / Time Penicillins [PENICILLINS] Allergy Mild Verified 02/16/20 13:50 Exam - Constitutional Constitutional:: Present: no acute distress, comfortable - HENMT Exam HENMT: Present: normocephalic, atraumatic - Eye Exam Eyes:: Present: normal appearance both eyes and related structures - Neck Exam Neck:: Present: normal visual inspection - Respiratory Exam Respiratory:: Present: able to speak in complete sentences, lungs clear, no respiratory distress. Absent: crackles, rales, wheezing - Cardiovascular Exam Cardiac:: Present: S1, S2 - GI Exam GI:: Present: soft - Skin Exam Skin: Present: warm, no rash - Neurological Exam Neurological: Present: alert, awake, normal cognition - Extremities Exam Extremities: Present: no cyanosis, no clubbing Internal Medicine - CN: Reslt - Labs CBC & Chem 7: 03/22/21 06:52 03/22/21 06:52 Labs: Short CBC 03/22/21 Range/Units 06:52 WBC 3.1 L D (4.8-10.8) K/mm3 Hgb 14.3 (12.2-16.2) g/dL Hct 44.9 (37.0-47.0) % Plt Count 98 L (142-424) K/mm3 BMP 03/22/21 06:52 Sodium 140 Potassium 3.2 L Chloride 103 Carbon Dioxide 33 H BUN 14 Creatinine 0.60 Glucose 83 Calcium 7.8 L Liver Function 03/22/21 Range/Units 06:52 Total Bilirubin 0.6 (0.2-1.3) mg/dl AST 33 (14-36) U/L ALT 10 L (12-78) U/L Alkaline Phosphatase 54 (38-126) U/L Albumin 3.0 L (3.5-5.0) g/dl Assessment and Plan (1) COVID Status: Acute Category: Medical Code(s): U07.1 - COVID-19 (2) Confusion Status: Acute Category: Medical Code(s): R41.0 - Disorientation, unspecified (3) UTI (urinary tract infection) Status: Acute Qualifiers: Urinary tract infection type: acute pyelonephritis Qualified Code(s): N10 - Acute pyelonephritis Category: Medical Code(s): N39.0 - Urinary tract infection, site not specified (4) HTN (hypertension) Status: Acute Qualifiers: Hypertension type: essential hypertension Category: Medical Code(s): I10 - Essential (primary) hypertension (5) Heart murmur Status: Acute Category: Medical Code(s): R01.1 - Cardiac murmur, unspecified (6) Onychodystrophy Start date: 03/21/21 Status: Acute Category: Medical Code(s): L60.3 - Nail dystrophy (7) Onychomycosis Start
--- NOTE | 2021-03-22 17:50 | PC.NURSE ---
Pt tolerated regen infusion w/o any issues. Cont to mx 02, as pt has intermittently desatted when sleeping. Pt is up to chair at this time. CB in reach. No complaints, states she feels just fine . Pt has been alert and oriented x 4 this shift. VSS. NAD at this time.
[2021-03-23] VITALS (8 sets, daily range): BP systolic 130–152; BP diastolic 60–72; PULSE 64–72; RESP 16–17; TEMP 36.5–37.2; O2SAT 86–97; BMI 33.7
--- NOTE | 2021-03-23 06:52 | PC.NURSE ---
Patient has remained on 2LNC and has tolerated it well. Patient has maintained oxygen in the 90s.
[2021-03-23 07:04] LABS: Basophils % 0.8 % (0.1-2.0); Eosinophils # 0.1 K/mm3 (0.0-0.4); Eosinophils % 1.9 % (0.1-12.0); Lymphocytes # 1.2 K/mm3 (0.7-4.5); Lymphocytes % 43.1 % (10-50); Mean Corpuscular HGB Conc 31.8 g/dL (31.8-35.4); Mean Corpuscular Hemoglobin 28.8 pg (27.0-31.2); Mean Corpuscular Volume 90.5 fl (81-99); Mean Platelet Volume 9.8 fl (7.4-10.4); Monocytes # 0.2 K/mm3 (0.1-1.0); Monocytes % 7.9 % (1.7-9.3); Neutrophils # 1.3 K/mm3 (1.8-7.8); Neutrophils % 46.2 % (37.0-80.0); Platelet Count 100 K/mm3 (142-424); Red Blood Count 4.86 M/mm3 (4.20-5.40); Red Cell Distribution Width 13.6 % (11.5-17.5); White Blood Count 2.8 K/mm3 (4.8-10.8)
[2021-03-23 07:14] LABS: Alanine Aminotransferase 8 U/L (12-78); Albumin Level 2.8 g/dl (3.5-5.0); Alkaline Phosphatase 48 U/L (38-126); Anion Gap 5.5 mEq/L (5-15); Aspartate Amino Transferase 30 U/L (14-36); Bilirubin,Total 0.5 mg/dl (0.2-1.3); Blood Urea Nitrogen 18 mg/dl (7-17); Calcium 7.9 mg/dl (8.4-10.2); Carbon Dioxide 32 mmol/L (22.0-30.0); Chloride 104 mmol/L (98-107); Creatinine Clearance Estimated 51 mL/min (50-200); Estimated Glomerular Filt Rate 95 ml/min (>60); GFR (African American) 115 ML/MIN (>60); Globulin 2.9 g/dL (1.3-3.2); Glucose 81 mg/dl (74-100); Potassium 3.5 mmoL/L (3.5-5.1); Sodium 138 mmol/L (136-145); Total Protein,Serum 5.7 g/dl (6.3-8.2)
--- NOTE | 2021-03-23 09:48 | HMH.PULMPN ---
Internal Medicine - PN: Subj *Date: 03/23/21 *Time: 12:09 Interval history: No acute resp events overnight. She denies any new respiratory complaints Exam - Constitutional Constitutional:: Present: no acute distress - HENMT Exam HENMT: Present: normocephalic - Eye Exam Eyes:: Present: normal appearance both eyes and related structures - Neck Exam Neck:: Present: normal visual inspection - Respiratory Exam Respiratory:: Present: able to speak in complete sentences, lungs clear, no respiratory distress - Cardiovascular Exam Cardiac:: Present: S1, S2 - GI Exam GI:: Present: soft - Skin Exam Skin: Present: warm, no rash - Neurological Exam Neurological: Present: alert, awake - Extremities Exam Extremities: Present: no cyanosis, no clubbing Assessment and Plan (1) COVID Status: Acute Category: Medical Code(s): U07.1 - COVID-19 (2) Confusion Status: Acute Category: Medical Code(s): R41.0 - Disorientation, unspecified (3) UTI (urinary tract infection) Status: Acute Qualifiers: Urinary tract infection type: acute pyelonephritis Qualified Code(s): N10 - Acute pyelonephritis Category: Medical Code(s): N39.0 - Urinary tract infection, site not specified (4) HTN (hypertension) Status: Acute Qualifiers: Hypertension type: essential hypertension Category: Medical Code(s): I10 - Essential (primary) hypertension (5) Heart murmur Status: Acute Category: Medical Code(s): R01.1 - Cardiac murmur, unspecified (6) Onychodystrophy Start date: 03/21/21 Status: Acute Category: Medical Code(s): L60.3 - Nail dystrophy (7) Onychomycosis Start date: 03/21/21 Status: Acute Category: Medical Code(s): B35.1 - Tinea unguium (8) Onychoincurvatum Start date: 03/21/21 Status: Acute Category: Medical Code(s): L60.8 - Other nail disorders (9) Acquired pes cavus Start date: 03/21/21 Status: Acute Category: Medical Code(s): M21.6X9 - Other acquired deformities of unspecified foot (10) Acquired hammer toes of both feet Start date: 03/21/21 Status: Acute Category: Medical Code(s): M20.41 - Other hammer toe(s) (acquired), right foot; M20.42 - Other hammer toe(s) (acquired), left foot (11) Plantar fasciitis of left foot Start date: 03/21/21 Status: Acute Category: Medical Code(s): M72.2 - Plantar fascial fibromatosis (12) Pain of left heel Start date: 03/21/21 Status: Acute Category: Medical Code(s): M79.672 - Pain in left foot (13) Osteoarthritis Start date: 03/21/21 Status: Acute Category: Medical Code(s): M19.90 - Unspecified osteoarthritis, unspecified site (14) Cellulitis of anterior lower leg Start date: 03/21/21 Status: Acute Category: Medical Code(s): L03.119 - Cellulitis of unspecified part of limb (15) Bug bite Start date: 03/21/21 Status: Acute Category: Medical Code(s): W57.XXXA - Bitten or stung by nonvenomous insect and other nonvenomous arthropods, initial encounter (16) Pain in left foot Start date: 03/21/21 Status: Acute Category: Medical Code(s): M79.672 - Pain in left foot (17) Pain in lateral portion of ankle Start date: 03/21/21 Status: Acute Category: Medical Code(s): M25.579 - Pain in unspecified ankle and joints of unspecified foot (18) Lower extremity edema Start date: 03/21/21 Status: Acute Category: Medical Code(s): R60.0 - Localized edema - Assessment and plan all Dx Assessment and Plan for all problems:: #COVID-19 pneumonia: Ms. Montilla is a 85-year-old female presented to the ED for foot pain and had a COVID-19 screening and resulted positive. Patient denies any recent respiratory complaints. Respiratory rate at baseline. No significant smoking history. CRP within normal limits at 2.3. Patient remained on room air. Chest x-ray no acute pulmonary infiltrates. Given patient's attempts asymptomatic status pa
--- NOTE | 2021-03-23 09:49 | XR_ITS ---
PROCEDURE: XR CHEST PORTABLE CLINICAL HISTORY: PNM COMPARISON: CR CXR CHEST(2 VIEWS-NOT PORTABLE) from 09/23/2013 CR XR CHEST 2V from 03/01/2020 CR XR CHEST PORTABLE from 03/21/2021 FINDINGS: The cardiomediastinal silhouette and pulmonary vascularity are within normal limits. The lungs are clear without infiltrates, suspicious nodules, or pleural effusions. No acute bony abnormalities. IMPRESSION: No acute findings. Dictated by: Rob Hastings MD 03/23/2021 11:31 Rob Hastings MD in [facility] 03/23/2021 11:31
--- NOTE | 2021-03-23 10:06 | HMH.ACPN2 ---
Internal Medicine - PN: Subj *Date: 03/23/21 *Time: 08:10 Interval history: pt sitting up in chair Exam Vital signs and Labs for Last 24 Hours: Temp Pulse Resp BP Pulse Ox 97.7 F 64 17 136/68 96 03/23/21 07:34 03/23/21 07:34 03/23/21 07:34 03/23/21 07:34 03/23/21 07:34 Laboratory Results - last 24 hr 03/23/21 06:35: Sodium 138, Potassium 3.5, Chloride 104, Carbon Dioxide 32 H, Anion Gap 5.5, BUN 18 H D, Creatinine 0.60, Estimated Creat Clear 51, Estimated GFR 95, Est GFR ( Amer) 115, Glucose 81, Calcium 7.9 L, Total Bilirubin 0.5, AST 30, ALT 8 L, Alkaline Phosphatase 48, Total Protein 5.7 L, Albumin 2.8 L, Globulin 2.9, Albumin/Globulin Ratio 1.0 L 03/23/21 06:35: WBC 2.8 L, RBC 4.86, Hgb 14.0, Hct 44.0, MCV 90.5, MCH 28.8, MCHC 31.8, RDW 13.6, Plt Count 100 L, MPV 9.8, Neut % (Auto) 46.2, Lymph % (Auto) 43.1, [place] % (Auto) 7.9, Eos % (Auto) 1.9, Baso % (Auto) 0.8, Neut # (Auto) 1.3 L, Lymph # (Auto) 1.2, [place] # (Auto) 0.2, Eos # (Auto) 0.1, Baso # (Auto) 0.0 I & O for Last 24 hours: Intake & Output 03/20/21 03/21/21 03/22/21 03/23/21 11:59 11:59 11:59 11:59 Intake Total 180 / 180 660 / 660 480 / 480 Output Total 0 / 0 Balance 180 / 180 660 / 660 480 / 480 Weight 171 lb 3 oz 171 lb 9.6 oz 171 lb 9.02 oz Microbiology Reports for the Last 24 Hours: Microbiology 03/20/21 13:29 Urine,Catheterized Urine Culture - Final NO GROWTH AFTER 48 HOURS - Constitutional no acute distress, chronically ill appearing - *Routine HEENT Exam Head: Present: normocephalic Eye: Present: PERRL ENT: Present: mucous membranes moist - *Routine Neck Exam Present: supple. Absent: lymphadenopathy - *Routine Respiratory Exam Present: CTA bilaterally - *Routine Cardiovascular Exam Present: RRR, murmur - *Routine Abdominal Exam Present: soft, normoactive bowel sounds. Absent: tenderness - *Routine Extremities Exam Absent: cyanosis, clubbing, edema - *Routine Skin Exam Present: warm. Absent: rash - *Routine Neurological Exam Present: alert Assessment and Plan (1) COVID Status: Acute Category: Medical Code(s): U07.1 - COVID-19 (2) Confusion Status: Acute Category: Medical Code(s): R41.0 - Disorientation, unspecified (3) UTI (urinary tract infection) Status: Acute Qualifiers: Urinary tract infection type: acute pyelonephritis Qualified Code(s): N10 - Acute pyelonephritis Category: Medical Code(s): N39.0 - Urinary tract infection, site not specified (4) HTN (hypertension) Status: Acute Qualifiers: Hypertension type: essential hypertension Category: Medical Code(s): I10 - Essential (primary) hypertension (5) Heart murmur Status: Acute Category: Medical Code(s): R01.1 - Cardiac murmur, unspecified (6) Onychodystrophy Start date: 03/21/21 Status: Acute Category: Medical Code(s): L60.3 - Nail dystrophy (7) Onychomycosis Start date: 03/21/21 Status: Acute Category: Medical Code(s): B35.1 - Tinea unguium (8) Onychoincurvatum Start date: 03/21/21 Status: Acute Category: Medical Code(s): L60.8 - Other nail disorders (9) Acquired pes cavus Start date: 03/21/21 Status: Acute Category: Medical Code(s): M21.6X9 - Other acquired deformities of unspecified foot (10) Acquired hammer toes of both feet Start date: 03/21/21 Status: Acute Category: Medical Code(s): M20.41 - Other hammer toe(s) (acquired), right foot; M20.42 - Other hammer toe(s) (acquired), left foot (11) Plantar fasciitis of left foot Start date: 03/21/21 Status: Acute Category: Medical Code(s): M72.2 - Plantar fascial fibromatosis (12) Pain of left heel Start date: 03/21/21 Status: Acute Category: Medical Code(s): M79.672 - Pain in left foot (13) Osteoarthritis Start date: 03/21/21 Status: Acute Category: Medical Code(s): M19.90 - Unspecified osteoart
--- NOTE | 2021-03-23 11:34 | DIET.NUTRFU ---
PO intakes 25-50%, weight stable, BID supplements added to order.
--- NOTE | 2021-03-23 19:44 | PC.NURSE ---
aox4, able to make needs known to staff, 2lnc in place. aldana cath in place.
[2021-03-24 04:00] VITALS: BP 157/76; PULSE 66; RESP 18; TEMP 37.1; O2SAT 92
[2021-03-24 04:43] VITALS: BMI 33.6
--- NOTE | 2021-03-24 05:10 | PC.NURSE ---
Patient lung sounds are diminished throughout. Patient remains on 2LNC while sleeping. She has slept this RN's shift. No complaints voiced to this RN thus far.
--- NOTE | 2021-03-24 07:39 | CT_ITS ---
PROCEDURE INFORMATION: Exam: CTA Chest With Contrast Exam date and time: 03/24/2021 7:39 AM Age: 85 years old Clinical indication: Shortness of breath; Additional info: Sob/positive covid-19 TECHNIQUE: Imaging protocol: Computed tomographic angiography of the chest with contrast. 3D rendering (Not supervised by radiologist): MIP and/or 3D reconstructed images were created by the technologist. Radiation optimization: All CT scans at this facility use at least one of these dose optimization techniques: automated exposure control; mA and/or kV adjustment per patient size (includes targeted exams where dose is matched to clinical indication); or iterative reconstruction. Contrast material: ISOVUE; Contrast volume: 75 ml; Contrast route: INTRAVENOUS (IV); COMPARISON: CR XR CHEST PORTABLE 03/23/2021 10:30 AM FINDINGS: Pulmonary arteries: Exam is degraded by respiratory motion artifact such that nonocclusive segmental and smaller pulmonary emboli would be obscured. No evidence of occlusive segmental or larger pulmonary emboli. Aorta: No aortic aneurysm. No aortic dissection. Other arteries: Mild aortic and branch vessel atherosclerosis. Thyroid: Thyroid isthmus nodule measuring 1.8 cm. This was biopsied 03/07/2020, follow-up with those results for further evaluation. Lungs: No consolidation. No masses. Pleural spaces: No pneumothorax. No pleural effusion. Heart: Aortic annular and coronary artery calcifications are present. Lymph nodes: No enlarged lymph nodes. Gallbladder and bile ducts: Cholecystectomy. Pneumobilia likely from previous intervention. Bones/joints: No acute fracture. Soft tissues: Asymmetric fatty atrophy of the right chest musculature. IMPRESSION: Degraded study such that nonocclusive segmental and smaller emboli would be obscured. No occlusive segmental or larger pulmonary emboli identified. COMMENTS: Consistent with the [employer]'s Incidental Findings Committee white paper (J Am Ricco Radiol 2015): In patients aged 35 years and older with an incidental thyroid nodule equal to or greater than 1.[address], MRI or extrathyroidal US, further evaluation with dedicated thyroid US is recommended for patients with normal life expectancy and without comorbidities. For smaller nodules without suspicious features, no further evaluation or follow up is recommended.
--- NOTE | 2021-03-24 07:42 | HMH.ACPN2 ---
Internal Medicine - PN: Subj *Date: 03/24/21 *Time: 07:42 Interval history: doing better this am - urine culture reported as neg - labs pending this am Exam Vital signs and Labs for Last 24 Hours: Temp Pulse Resp BP Pulse Ox 98.8 F 66 18 157/76 H 92 L 03/24/21 04:00 03/24/21 04:00 03/24/21 04:00 03/24/21 04:00 03/24/21 04:00 I & O for Last 24 hours: Intake & Output 03/21/21 03/22/21 03/23/21 03/24/21 11:59 11:59 11:59 11:59 Intake Total 180 / 180 660 / 660 600 / 600 480 / 480 Output Total 0 / 0 350 / 350 Balance 180 / 180 660 / 660 600 / 600 130 / 130 Weight 171 lb 3 oz 171 lb 9.6 oz 171 lb 9.02 oz 171 lb 8 oz - Constitutional no acute distress, obese - *Routine HEENT Exam Head: Present: normocephalic Eye: Present: EOMI, PERRL ENT: Present: mucous membranes dry - *Routine Neck Exam Absent: JVD - *Routine Respiratory Exam Present: decreased breath sounds - *Routine Cardiovascular Exam Present: RRR, murmur, S4 - *Routine Abdominal Exam Present: soft - *Routine Extremities Exam Absent: calf tenderness - *Routine Skin Exam Present: intact - *Routine Neurological Exam Present: alert, CN II-XII intact. Absent: motor deficit - Routine Psychiatric Exam Present: cooperative Assessment and Plan (1) COVID Status: Acute Category: Medical Code(s): U07.1 - COVID-19 (2) Confusion Status: Acute Category: Medical Code(s): R41.0 - Disorientation, unspecified (3) UTI (urinary tract infection) Status: Acute Qualifiers: Urinary tract infection type: acute pyelonephritis Qualified Code(s): N10 - Acute pyelonephritis Category: Medical Code(s): N39.0 - Urinary tract infection, site not specified (4) HTN (hypertension) Status: Acute Qualifiers: Hypertension type: essential hypertension Category: Medical Code(s): I10 - Essential (primary) hypertension (5) Heart murmur Status: Acute Category: Medical Code(s): R01.1 - Cardiac murmur, unspecified (6) Onychodystrophy Start date: 03/21/21 Status: Acute Category: Medical Code(s): L60.3 - Nail dystrophy (7) Onychomycosis Start date: 03/21/21 Status: Acute Category: Medical Code(s): B35.1 - Tinea unguium (8) Onychoincurvatum Start date: 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/21 Status: Acute Category: Medical Code(s): L60.8 - Other nail disorders (9) Acquired pes cavus Start date: 03/21/21 Status: Acute Category: Medical Code(s): M21.6X9 - Other acquired deformities of unspecified foot (10) Acquired hammer toes of both feet Start date: 03/21/21 Status: Acute Category: Medical Code(s): M20.41 - Other hammer toe(s) (acquired), right foot; M20.42 - Other hammer toe(s) (acquired), left foot (11) Plantar fasciitis of left foot Start date: 03/21/21 Status: Acute Category: Medical Code(s): M72.2 - Plantar fascial fibromatosis (12) Pain of left heel Start date: 03/21/21 Status: Acute Category: Medical Code(s): M79.672 - Pain in left foot (13) Osteoarthritis Start date: 03/21/21 Status: Acute Category: Medical Code(s): M19.90 - Unspecified osteoarthritis, unspecified site (14) Cellulitis of anterior lower leg Start date: 03/21/21 Status: Acute Category: Medical Code(s): L03.119 - Cellulitis of unspecified part of limb (15) Bug bite Start date: 03/21/21 Status: Acute Category: Medical Code(s): W57.XXXA - Bitten or stung by nonvenomous insect and other nonvenomous arthropods, initial encounter (16) Pain in left foot Start date: 03/21/21 Status: Acute Category: Medical Code(s): M79.672 - Pain in left foot (17) Pain in lateral portion of ankle Start date: 03/21/21 Status: Acute Category: Medical Code(s): M25.579 - Pain in unspecified ankle and joints of unspecified foot (18) Lower extremity edema Start date: 03/21/21 Status: Acute Category: Medical Code(s): R60.0 - Localized edema
[2021-03-24 08:00] VITALS: BP 142/76; PULSE 98; RESP 16; TEMP 36.7; O2SAT 94
--- NOTE | 2021-03-24 08:12 | HMH.ITSTN ---
called nurse loy advised CT angio PE was ordered by Dr Walsh and that it was put in as Routine not stat-- advised the other tech comes in at 10 then I will be up to get her at 10 so I can have ER coverage.
[2021-03-24 08:56] LABS: Basophils % 0.8 % (0.1-2.0); Eosinophils # 0.1 K/mm3 (0.0-0.4); Eosinophils % 2.8 % (0.1-12.0); Hematocrit 43.1 % (37.0-47.0); Hemoglobin 13.7 g/dL (12.2-16.2); Lymphocytes # 1.3 K/mm3 (0.7-4.5); Lymphocytes % 35.6 % (10-50); Mean Corpuscular HGB Conc 31.7 g/dL (31.8-35.4); Mean Corpuscular Hemoglobin 28.9 pg (27.0-31.2); Mean Corpuscular Volume 91.4 fl (81-99); Mean Platelet Volume 10.4 fl (7.4-10.4); Monocytes # 0.2 K/mm3 (0.1-1.0); Neutrophils % 55.8 % (37.0-80.0); Platelet Count 100 K/mm3 (142-424); Red Blood Count 4.72 M/mm3 (4.20-5.40); Red Cell Distribution Width 13.5 % (11.5-17.5); White Blood Count 3.5 K/mm3 (4.8-10.8)
[2021-03-24 09:00] LABS: Alanine Aminotransferase 7 U/L (12-78); Albumin Level 2.8 g/dl (3.5-5.0); Alkaline Phosphatase 53 U/L (38-126); Anion Gap 6.4 mEq/L (5-15); Aspartate Amino Transferase 28 U/L (14-36); Bilirubin,Total 0.5 mg/dl (0.2-1.3); Blood Urea Nitrogen 18 mg/dl (7-17); Calcium 7.8 mg/dl (8.4-10.2); Carbon Dioxide 34 mmol/L (22.0-30.0); Chloride 103 mmol/L (98-107); Creatinine Clearance Estimated 51 mL/min (50-200); Estimated Glomerular Filt Rate 95 ml/min (>60); GFR (African American) 115 ML/MIN (>60); Globulin 2.9 g/dL (1.3-3.2); Glucose 81 mg/dl (74-100); Potassium 3.4 mmoL/L (3.5-5.1); Sodium 140 mmol/L (136-145); Total Protein,Serum 5.7 g/dl (6.3-8.2)
[2021-03-24 09:09] LABS: Magnesium 1.7 mg/dl (1.6-2.3)
--- NOTE | 2021-03-24 10:28 | PC.NURSE ---
Pt down for cta at this time.
[2021-03-24 12:00] VITALS: BP 143/78; PULSE 115; RESP 16; TEMP 37; O2SAT 95
[2021-03-24 16:00] VITALS: BP 131/72; PULSE 98; RESP 16; TEMP 37.2; O2SAT 96
--- NOTE | 2021-03-24 18:59 | PC.NURSE ---
No acute changes this shift. VSS. CB in reach. Remains on 2 L NC.
[2021-03-24 20:00] VITALS: BP 152/79; PULSE 67; RESP 18; RESP 19; TEMP 36.7; O2SAT 92
[2021-03-25] VITALS (8 sets, daily range): BP systolic 118–160; BP diastolic 61–82; PULSE 62–90; RESP 16–20; TEMP 36.6–37.1; O2SAT 91–100; BMI 32.0
[2021-03-25 06:47] LABS: Basophils % 0.5 % (0.1-2.0); Eosinophils # 0.1 K/mm3 (0.0-0.4); Eosinophils % 3.1 % (0.1-12.0); Hematocrit 46.8 % (37.0-47.0); Hemoglobin 14.5 g/dL (12.2-16.2); Lymphocytes # 1.2 K/mm3 (0.7-4.5); Lymphocytes % 36.1 % (10-50); Mean Corpuscular Hemoglobin 28.4 pg (27.0-31.2); Mean Corpuscular Volume 91.7 fl (81-99); Mean Platelet Volume 10.3 fl (7.4-10.4); Monocytes # 0.2 K/mm3 (0.1-1.0); Monocytes % 7.2 % (1.7-9.3); Neutrophils # 1.7 K/mm3 (1.8-7.8); Neutrophils % 53.1 % (37.0-80.0); Platelet Count 110 K/mm3 (142-424); Red Cell Distribution Width 13.6 % (11.5-17.5); White Blood Count 3.2 K/mm3 (4.8-10.8)
[2021-03-25 08:08] LABS: Alanine Aminotransferase 9 U/L (12-78); Albumin Level 2.8 g/dl (3.5-5.0); Albumin/Globulin Ratio 0.9 (1.1-1.8); Alkaline Phosphatase 53 U/L (38-126); Anion Gap 6.5 mEq/L (5-15); Aspartate Amino Transferase 30 U/L (14-36); Bilirubin,Total 0.6 mg/dl (0.2-1.3); Blood Urea Nitrogen 15 mg/dl (7-17); Calcium 8.3 mg/dl (8.4-10.2); Carbon Dioxide 36 mmol/L (22.0-30.0); Chloride 104 mmol/L (98-107); Creatinine Clearance Estimated 48 mL/min (50-200); Estimated Glomerular Filt Rate 95 ml/min (>60); GFR (African American) 115 ML/MIN (>60); Glucose 89 mg/dl (74-100); Potassium 3.5 mmoL/L (3.5-5.1); Sodium 143 mmol/L (136-145); Total Protein,Serum 5.8 g/dl (6.3-8.2)
--- NOTE | 2021-03-25 08:42 | HMH.ACPN2 ---
Internal Medicine - PN: Subj *Date: 03/25/21 *Time: 09:09 Interval history: more alert today - labs stable and no large pul emboli Exam Vital signs and Labs for Last 24 Hours: Temp Pulse Resp BP Pulse Ox 98.3 F 86 18 143/69 H 96 03/25/21 08:00 03/25/21 08:00 03/25/21 08:00 03/25/21 08:00 03/25/21 08:00 Laboratory Results - last 24 hr 03/25/21 06:30: Sodium 143, Potassium 3.5, Chloride 104, Carbon Dioxide 36 H, Anion Gap 6.5, BUN 15, Creatinine 0.60, Estimated Creat Clear 48, Estimated GFR 95, Est GFR ( Amer) 115, Glucose 89, Calcium 8.3 L, Total Bilirubin 0.6, AST 30, ALT 9 L D, Alkaline Phosphatase 53, Total Protein 5.8 L, Albumin 2.8 L, Globulin 3.0, Albumin/Globulin Ratio 0.9 L 03/25/21 06:30: WBC 3.2 L, RBC 5.10, Hgb 14.5, Hct 46.8, MCV 91.7, MCH 28.4, MCHC 31.0 L, RDW 13.6, Plt Count 110 L, MPV 10.3, Neut % (Auto) 53.1, Lymph % (Auto) 36.1, [place] % (Auto) 7.2, Eos % (Auto) 3.1, Baso % (Auto) 0.5, Neut # (Auto) 1.7 L, Lymph # (Auto) 1.2, [place] # (Auto) 0.2, Eos # (Auto) 0.1, Baso # (Auto) 0.0 I & O for Last 24 hours: Intake & Output 03/22/21 03/23/21 03/24/21 03/25/21 11:59 11:59 11:59 10:59 Intake Total 660 / 660 600 / 600 600 / 600 300 / 300 Output Total 350 / 350 Balance 660 / 660 600 / 600 250 / 250 300 / 300 Weight 171 lb 9.6 oz 171 lb 9.02 oz 171 lb 8 oz 163 lb - Constitutional no acute distress, obese - *Routine HEENT Exam Head: Present: normocephalic Eye: Present: EOMI, PERRL ENT: Present: mucous membranes dry - *Routine Neck Exam Absent: JVD - *Routine Respiratory Exam Present: decreased breath sounds - *Routine Cardiovascular Exam Present: RRR, murmur - *Routine Abdominal Exam Present: soft - *Routine Extremities Exam Absent: calf tenderness - *Routine Skin Exam Absent: erythema - *Routine Neurological Exam Present: alert, CN II-XII intact - Routine Psychiatric Exam Present: normal affect Assessment and Plan (1) COVID Status: Acute Category: Medical Code(s): U07.1 - COVID-19 (2) Confusion Status: Acute Category: Medical Code(s): R41.0 - Disorientation, unspecified (3) UTI (urinary tract infection) Status: Acute Qualifiers: Urinary tract infection type: acute pyelonephritis Qualified Code(s): N10 - Acute pyelonephritis Category: Medical Code(s): N39.0 - Urinary tract infection, site not specified (4) HTN (hypertension) Status: Acute Qualifiers: Hypertension type: essential hypertension Category: Medical Code(s): I10 - Essential (primary) hypertension (5) Heart murmur Status: Acute Category: Medical Code(s): R01.1 - Cardiac murmur, unspecified (6) Onychodystrophy Start date: 03/21/21 Status: Acute Category: Medical Code(s): L60.3 - Nail dystrophy (7) Onychomycosis Start date: 03/21/21 Status: Acute Category: Medical Code(s): B35.1 - Tinea unguium (8) Onychoincurvatum Start date: 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/21 Status: Acute Category: Medical Code(s): L60.8 - Other nail disorders (9) Acquired pes cavus Start date: 03/21/21 Status: Acute Category: Medical Code(s): M21.6X9 - Other acquired deformities of unspecified foot (10) Acquired hammer toes of both feet Start date: 03/21/21 Status: Acute Category: Medical Code(s): M20.41 - Other hammer toe(s) (acquired), right foot; M20.42 - Other hammer toe(s) (acquired), left foot (11) Plantar fasciitis of left foot Start date: 03/21/21 Status: Acute Category: Medical Code(s): M72.2 - Plantar fascial fibromatosis (12) Pain of left heel Start date: 03/21/21 Status: Acute Category: Medical Code(s): M79.672 - Pain in left foot (13) Osteoarthritis Start date: 03/21/21 Status: Acute Category: Medical Code(s): M19.90 - Unspecified osteoarthritis, unspecified site (14) Cellulitis of anterior lower leg Start date: 03/21/21 Status: Acute Category: Medical Code(s): L03.119 - Cellul
--- NOTE | 2021-03-25 20:20 | PC.NURSE ---
No acute changes. CB in reach. Has been up to chair this shift this shift. VSS. Remains on 2 L NC.
[2021-03-26 04:00] VITALS: BP 156/72; PULSE 109; RESP 18; TEMP 36.6; O2SAT 93
[2021-03-26 04:37] VITALS: BMI 31.4
[2021-03-26 08:00] VITALS: BP 142/76; PULSE 72; RESP 16; TEMP 36.8; O2SAT 94
[2021-03-26 08:54] LABS: Basophils % 0.8 % (0.1-2.0); Eosinophils # 0.1 K/mm3 (0.0-0.4); Eosinophils % 2.1 % (0.1-12.0); Hematocrit 45.8 % (37.0-47.0); Hemoglobin 14.7 g/dL (12.2-16.2); Lymphocytes # 1.1 K/mm3 (0.7-4.5); Lymphocytes % 30.5 % (10-50); Mean Corpuscular HGB Conc 32.2 g/dL (31.8-35.4); Mean Corpuscular Hemoglobin 29.2 pg (27.0-31.2); Mean Corpuscular Volume 90.8 fl (81-99); Mean Platelet Volume 9.7 fl (7.4-10.4); Monocytes # 0.3 K/mm3 (0.1-1.0); Monocytes % 7.5 % (1.7-9.3); Neutrophils # 2.2 K/mm3 (1.8-7.8); Neutrophils % 59.2 % (37.0-80.0); Platelet Count 114 K/mm3 (142-424); Red Blood Count 5.04 M/mm3 (4.20-5.40); Red Cell Distribution Width 13.5 % (11.5-17.5); White Blood Count 3.7 K/mm3 (4.8-10.8)
[2021-03-26 09:02] LABS: Anion Gap 7.5 mEq/L (5-15); Blood Urea Nitrogen 18 mg/dl (7-17); Calcium 8.2 mg/dl (8.4-10.2); Carbon Dioxide 33 mmol/L (22.0-30.0); Chloride 105 mmol/L (98-107); Creatinine Clearance Estimated 47 mL/min (50-200); Estimated Glomerular Filt Rate 117 ml/min (>60); GFR (African American) 142 ML/MIN (>60); Glucose 85 mg/dl (74-100); Potassium 3.5 mmoL/L (3.5-5.1); Sodium 142 mmol/L (136-145)
--- NOTE | 2021-03-26 09:22 | HMH.ACPN2 ---
Internal Medicine - PN: Subj *Date: 03/26/21 *Time: 08:45 Interval history: pt laying in bed, states no c/o. per notes pt worked with PT yesterday walked and transferred to Exam Vital signs and Labs for Last 24 Hours: Temp Pulse Resp BP Pulse Ox 98.3 F 72 16 142/76 H 94 L 03/26/21 08:00 03/26/21 08:00 03/26/21 08:00 03/26/21 08:00 03/26/21 08:00 Laboratory Results - last 24 hr 03/26/21 08:39: WBC 3.7 L, RBC 5.04, Hgb 14.7, Hct 45.8, MCV 90.8, MCH 29.2, MCHC 32.2, RDW 13.5, Plt Count 114 L, MPV 9.7, Neut % (Auto) 59.2, Lymph % (Auto) 30.5, [place] % (Auto) 7.5, Eos % (Auto) 2.1, Baso % (Auto) 0.8, Neut # (Auto) 2.2, Lymph # (Auto) 1.1, [place] # (Auto) 0.3, Eos # (Auto) 0.1, Baso # (Auto) 0.0 03/26/21 08:39: Sodium 142, Potassium 3.5, Chloride 105, Carbon Dioxide 33 H, Anion Gap 7.5, BUN 18 H, Creatinine 0.50 L, Estimated Creat Clear 47, Estimated GFR 117, Est GFR ( Amer) 142 D, Glucose 85, Calcium 8.2 L I & O for Last 24 hours: Intake & Output 03/23/21 03/24/21 03/25/21 03/26/21 12:59 12:59 11:59 11:59 Intake Total 600 / 600 Output Total Balance 600 / 600 Weight 160 lb - Constitutional no acute distress - *Routine HEENT Exam Head: Present: normocephalic Eye: Present: PERRL ENT: Present: mucous membranes moist - *Routine Neck Exam Present: supple. Absent: lymphadenopathy - *Routine Respiratory Exam Present: CTA bilaterally - *Routine Cardiovascular Exam Present: RRR - *Routine Abdominal Exam Present: soft, normoactive bowel sounds. Absent: tenderness - *Routine Extremities Exam Absent: cyanosis, clubbing, edema - *Routine Skin Exam Present: warm. Absent: rash - *Routine Neurological Exam Present: alert Assessment and Plan (1) COVID Status: Acute Category: Medical Code(s): U07.1 - COVID-19 (2) Confusion Status: Acute Category: Medical Code(s): R41.0 - Disorientation, unspecified (3) UTI (urinary tract infection) Status: Acute Qualifiers: Urinary tract infection type: acute pyelonephritis Qualified Code(s): N10 - Acute pyelonephritis Category: Medical Code(s): N39.0 - Urinary tract infection, site not specified (4) HTN (hypertension) Status: Acute Qualifiers: Hypertension type: essential hypertension Category: Medical Code(s): I10 - Essential (primary) hypertension (5) Heart murmur Status: Acute Category: Medical Code(s): R01.1 - Cardiac murmur, unspecified (6) Onychodystrophy Start date: 03/21/21 Status: Acute Category: Medical Code(s): L60.3 - Nail dystrophy (7) Onychomycosis Start date: 03/21/21 Status: Acute Category: Medical Code(s): B35.1 - Tinea unguium (8) Onychoincurvatum Start date: 03/21/21 Status: Acute Category: Medical Code(s): L60.8 - Other nail disorders (9) Acquired pes cavus Start date: 03/21/21 Status: Acute Category: Medical Code(s): M21.6X9 - Other acquired deformities of unspecified foot (10) Acquired hammer toes of both feet Start date: 03/21/21 Status: Acute Category: Medical Code(s): M20.41 - Other hammer toe(s) (acquired), right foot; M20.42 - Other hammer toe(s) (acquired), left foot (11) Plantar fasciitis of left foot Start date: 03/21/21 Status: Acute Category: Medical Code(s): M72.2 - Plantar fascial fibromatosis (12) Pain of left heel Start date: 03/21/21 Status: Acute Category: Medical Code(s): M79.672 - Pain in left foot (13) Osteoarthritis Start date: 03/21/21 Status: Acute Category: Medical Code(s): M19.90 - Unspecified osteoarthritis, unspecified site (14) Cellulitis of anterior lower leg Start date: 03/21/21 Status: Acute Category: Medical Code(s): L03.119 - Cellulitis of unspecified part of limb (15) Bug bite Start date: 03/21/21 Status: Acute Category: Medical Code(s): W57.XXXA - Bitten or stung by nonvenomous insect and other nonvenomous ar
[2021-03-26 11:14] VITALS: O2SAT 87
--- NOTE | 2021-03-26 11:14 | PC.NURSE ---
pt needs a rolling walker rather than a cane to assist with mobility
[2021-03-26 11:28] VITALS: BP 132/68; PULSE 68; RESP 18; TEMP 36.9; O2SAT 92
--- NOTE | 2021-03-26 12:53 | PC.NURSE ---
Addendum entered by Tatiana Patel RN 03/26/21 18:19: FAMILY WAS NOTIFIED AT 1530 TO LET THEM KNOW SOON OXYGEN CONCENTRATOR ARRIVES TO HOUSE PT WILL BE READY FOR DISCHARGE AND WILL NEED A RIDE. FAMILY STATED THEY WERE IN [facility] AT THE TIME BUT SHOULD ARRIVE BACK HOME AROUND 1800. Original Note: PT IS SITTING UP IN THE CHAIR. ALERT AND ORIENTED X3. PT STATED SHE FELT LIKE SHE WAS MORE THAN READY TO BE DISCHARGED HOME. PT WAS ASKED ABOUT GOING FOR REHAB AT A FACILITY AND SHE STATED SHE WAS READY TO GO HOME AND SHE REALLY MISSED HER FAMILY. ACCORDING TO PT SHE HAS A 13 YEAR OLD GRAND DAUGHTER THAT WOULD ASSIST HER IF SHE NEEDED HELP. LUNG SOUNDS DIMINISHED. ABDOMEN SOFT/NON TENDER WITH ACTIVE BOWEL SOUNDS. ROOM AIR SATURATION 87% ON MORNING ASSESSMENT. CARE MANAGEMENT IS ARRANGING FOR PT TO HAVE HOME HEALTH AND OXYGEN WHEN DISCHARGED. WILL CONTINUE TO MONITOR.
--- NOTE | 2021-03-26 13:23 | HMH.PULMPN ---
Internal Medicine - PN: Subj *Date: 03/26/21 *Time: 17:12 Interval history: Patient denies any new respiratory complaints. No acute respiratory events over the weekend. Exam - Constitutional Constitutional:: Present: no acute distress, comfortable - HENMT Exam HENMT: Present: normocephalic, atraumatic - Eye Exam Eyes:: Present: normal appearance both eyes and related structures - Neck Exam Neck:: Present: normal visual inspection - Respiratory Exam Respiratory:: Present: able to speak in complete sentences, lungs clear, no respiratory distress - Cardiovascular Exam Cardiac:: Present: S1, S2 - GI Exam GI:: Present: soft - Skin Exam Skin: Present: warm, no rash - Neurological Exam Neurological: Present: alert, awake - Extremities Exam Extremities: Present: no cyanosis, no clubbing, no edema Assessment and Plan (1) COVID Status: Acute Category: Medical Code(s): U07.1 - COVID-19 (2) Confusion Status: Acute Category: Medical Code(s): R41.0 - Disorientation, unspecified (3) UTI (urinary tract infection) Status: Acute Qualifiers: Urinary tract infection type: acute pyelonephritis Qualified Code(s): N10 - Acute pyelonephritis Category: Medical Code(s): N39.0 - Urinary tract infection, site not specified (4) HTN (hypertension) Status: Acute Qualifiers: Hypertension type: essential hypertension Category: Medical Code(s): I10 - Essential (primary) hypertension (5) Heart murmur Status: Acute Category: Medical Code(s): R01.1 - Cardiac murmur, unspecified (6) Onychodystrophy Start date: 03/21/21 Status: Acute Category: Medical Code(s): L60.3 - Nail dystrophy (7) Onychomycosis Start date: 03/21/21 Status: Acute Category: Medical Code(s): B35.1 - Tinea unguium (8) Onychoincurvatum Start date: 03/21/21 Status: Acute Category: Medical Code(s): L60.8 - Other nail disorders (9) Acquired pes cavus Start date: 03/21/21 Status: Acute Category: Medical Code(s): M21.6X9 - Other acquired deformities of unspecified foot (10) Acquired hammer toes of both feet Start date: 03/21/21 Status: Acute Category: Medical Code(s): M20.41 - Other hammer toe(s) (acquired), right foot; M20.42 - Other hammer toe(s) (acquired), left foot (11) Plantar fasciitis of left foot Start date: 03/21/21 Status: Acute Category: Medical Code(s): M72.2 - Plantar fascial fibromatosis (12) Pain of left heel Start date: 03/21/21 Status: Acute Category: Medical Code(s): M79.672 - Pain in left foot (13) Osteoarthritis Start date: 03/21/21 Status: Acute Category: Medical Code(s): M19.90 - Unspecified osteoarthritis, unspecified site (14) Cellulitis of anterior lower leg Start date: 03/21/21 Status: Acute Category: Medical Code(s): L03.119 - Cellulitis of unspecified part of limb (15) Bug bite Start date: 03/21/21 Status: Acute Category: Medical Code(s): W57.XXXA - Bitten or stung by nonvenomous insect and other nonvenomous arthropods, initial encounter (16) Pain in left foot Start date: 03/21/21 Status: Acute Category: Medical Code(s): M79.672 - Pain in left foot (17) Pain in lateral portion of ankle Start date: 03/21/21 Status: Acute Category: Medical Code(s): M25.579 - Pain in unspecified ankle and joints of unspecified foot (18) Lower extremity edema Start date: 03/21/21 Status: Acute Category: Medical Code(s): R60.0 - Localized edema (19) Neutropenia Status: Acute Qualifiers: Neutropenia type: unspecified Qualified Code(s): D70.9 - Neutropenia, unspecified Category: Medical Code(s): D70.9 - Neutropenia, unspecified (20) Thrombocytopenia associated with COVID-19 Status: Acute Category: Medical Code(s): U07.1 - COVID-19; D69.59 - Other secondary thrombocytopenia (21) Hypocalcemia Status: Acute Category: Medical Code(s): E
--- NOTE | 2021-03-26 13:37 | HMH.DCSUM ---
General - General Admission date:: 03/20/21 Discharge date: 03/26/21 HPI HPI: 85 yr old female presents the emergency department secondary to left foot pain. Patient states left foot began causing her problems roughly 1 week ago. She denies any injury or fall. Denies any chest pain or shortness of breath. Patient is very aloof and does not provide much history. She reports that she has been crawling to the bathroom over the past week, due to pain. Per ed note EMS report the house was very poorly kept. Ems stated they were rodents on the floor and the house was full of bugs. The patient is covered in bedbugs. Pt admitted for covid and foot pain. Hospital Course Hospital Course: Laboratory Tests 03/20/21 03/20/21 03/20/21 12:15 12:15 13:29 WBC 3.1 L RBC 5.20 Hgb 15.0 Hct 47.5 H MCV 91.4 MCH 28.8 MCHC 31.6 L RDW 13.5 Plt Count 116 L MPV 9.9 Neut % (Auto) 54.3 Lymph % (Auto) 33.7 [place] % (Auto) 8.9 Eos % (Auto) 1.1 Baso % (Auto) 2.1 H Neut # (Auto) 1.7 L Lymph # (Auto) 1.0 [place] # (Auto) 0.3 Eos # (Auto) 0.0 Baso # (Auto) 0.1 D-Dimer Sodium 140 Potassium 3.6 Chloride 100 Carbon Dioxide 34 H Anion Gap 9.6 BUN 12 Creatinine 0.70 Estimated Creat Clear 56 Estimated GFR 80 Est GFR ( Amer) 96 Glucose 92 Calcium 8.2 L Magnesium Ferritin Total Bilirubin AST ALT Alkaline Phosphatase C-Reactive Protein Total Protein Albumin Globulin Albumin/Globulin Ratio Urine Color Yellow Urine Appearance Turbid Urine pH 6.5 Ur Specific [place] 1.025 Urine Protein Trace Urine Glucose (UA) Negative Urine Ketones Negative Urine Blood 1+ Urine Nitrate Negative Urine Bilirubin Negative Urine Urobilinogen 1.0 Ur Leukocyte Esterase 3+ A Urine RBC 5-10 Urine WBC Tntc Urine Bacteria 1+ SARS-CoV-2 (PCR) Influenza A Untype (PCR) Influenza Type B (PCR) 03/20/21 03/21/21 03/21/21 14:56 06:18 06:18 WBC 2.4 L RBC 4.72 Hgb 13.6 Hct 44.5 MCV 94.3 MCH 28.9 MCHC 30.6 L RDW 12.9 Plt Count 97 L MPV 9.1 Neut % (Auto) 45.5 Lymph % (Auto) 44.9 [place] % (Auto) 8.3 Eos % (Auto) 0.6 Baso % (Auto) 0.7 Neut # (Auto) 1.1 L Lymph # (Auto) 1.1 [place] # (Auto) 0.2 Eos # (Auto) 0.0 Baso # (Auto) 0.0 D-Dimer Sodium 138 Potassium 3.2 L Chloride 103 Carbon Dioxide 32 H Anion Gap 6.2 BUN 12 Creatinine 0.60 Estimated Creat Clear 50 Estimated GFR 95 Est GFR ( Amer) 115 Glucose 85 Calcium 7.8 L Magnesium Ferritin Total Bilirubin AST ALT Alkaline Phosphatase C-Reactive Protein Total Protein Albumin Globulin Albumin/Globulin Ratio Urine Color Urine Appearance Urine pH Ur Specific [place] Urine Protein Urine Glucose (UA) Urine Ketones Urine Blood Urine Nitrate Urine Bilirubin Urine Urobilinogen Ur Leukocyte Esterase Urine RBC Urine WBC Urine Bacteria SARS-CoV-2 (PCR) Detected A Influenza A Untype (PCR) Not detected Influenza Type B (PCR) Not detected 03/21/21 03/21/21 03/22/21 16:04 16:04 06:52 WBC RBC Hgb Hct MCV MCH MCHC RDW Plt Count MPV Neut % (Auto) Lymph % (Auto) [place] % (Auto) Eos % (Auto) Baso % (Auto) Neut # (Auto) Lymph # (Auto) [place] # (Auto) Eos # (Auto) Baso # (Auto) D-Dimer 0.79 H Sodium 140 Potassium 3.2 L Chloride 103 Carbon Dioxide 33 H Anion Gap 7.2 BUN 14 Creatinine 0.60 Estimated Creat Clear 51 Estimated GFR 95 Est GFR ( Amer) 115 Glucose 83 Calcium 7.8 L Magnesium Ferritin 297 H Total Bilirubin 0.6 AST 33 ALT 10 L Alkaline Phosphatase 54 C-Reactive
[2021-03-26 15:08] VITALS: BP 125/67; PULSE 106; RESP 18; TEMP 36.9; O2SAT 92
== END 2021-03-26 18:59 | disposition home health service (06) | DRG 177 ==
LOC: ER 13:51 → 2ND 14:05
PROVIDERS: Internal Medicine Pulmonary Disease; Nurse Practitioner Family; Admitting Provider Family Medicine; Emergency Provider Family Medicine; PCP Emergency Medicine; Visit Provider Family Medicine
DX: U07.1 COVID-19 (principal); J12.82 Pneumonia due to coronavirus disease 2019; I26.99 Other pulmonary embolism without acute cor pulmonale; N39.0 Urinary tract infection, site not specified; L03.116 Cellulitis of left lower limb; I10 Essential (primary) hypertension; Z85.9 Personal history of malignant neoplasm, unspecified; M72.2 Plantar fascial fibromatosis; E83.51 Hypocalcemia; D69.6 Thrombocytopenia, unspecified; I35.0 Nonrheumatic aortic (valve) stenosis; E66.9 Obesity, unspecified; Z68.30 Body mass index [BMI] 30.0-30.9, adult; D70.9 Neutropenia, unspecified; W57.XXXA Bitten or stung by nonvenomous insect and other nonvenomous arthropods, initial encounter; B88.9 Infestation, unspecified
CPT/HCPCS: 36415; 71045; 71275; 73630; 80048; 80053; 81001; 82728; 83735; 85025; 85378; 86140; 87086; 93306; 94761; 96365; 96372; 97110; 97162; 97166; 97530; 99283; C9803; J1335; Q9967; U0003; U0005

== ENCOUNTER 2023-04-20 15:44 | Inpatient (IN) | payer MEDICARE, SELFPAY ==
[2023-04-20] VITALS (10 sets, daily range): BP systolic 94–141; BP diastolic 44–116; PULSE 90–115; RESP 15–25; TEMP 32.9–34.7; O2SAT 86–100; BMI 24.2; BMI 27.3
--- NOTE | 2023-04-20 15:45 | PC.NURSE ---
Started to decontaminate pt from lice and other bugs found. Bed bath given. Huang cath 16F placed, UA obtained. Bedside FS 102. Attempting to placed IV, however having difficulty.
--- NOTE | 2023-04-20 16:06 | ECG_ITS ---
APPROVED REPORT Exam: Resting ECG HR:96 bpm ECG Measurements Heart Rate 96 AXES QRSd 92 QRS 14 QT 382 T -65 QTc [address] DEVIATION AND MODERATE T-WAVE ABNORMALITY, CONSIDER LATERAL ISCHEMIA [-0.1+ mV T-WAVE IN I/aVL/V5/V6] ABNORMAL ECG UNCONFIRMED REPORT Electronically signed by : Ronald De Los Santos MD 04/21/2023 17:38:43
--- NOTE | 2023-04-20 16:22 | XR_ITS ---
PROCEDURE INFORMATION: Exam: XR Chest Exam date and time: 04/20/2023 4:45 PM Age: 87 years old Clinical indication: Dyspnea TECHNIQUE: Imaging protocol: Radiologic exam of the chest. Views: 1 view. COMPARISON: CT ANGIO CHEST PE PROTOCOL 03/24/2021 10:18 AM FINDINGS: Lungs: Patchy left lung infiltrate. Pleural spaces: Unremarkable. No pleural effusion. No pneumothorax. Heart/Mediastinum: Unremarkable. No cardiomegaly. Bones/joints: Unremarkable. IMPRESSION: Patchy left lung infiltrate.
--- NOTE | 2023-04-20 16:24 | CT_ITS ---
PROCEDURE INFORMATION: Exam: CT Head Without Contrast Exam date and time: 04/20/2023 4:48 PM Age: 87 years old Clinical indication: Altered mental status/memory loss; Confusion or disorientation; Additional info: AMS TECHNIQUE: Imaging protocol: Computed tomography of the head without contrast. Radiation optimization: All CT scans at this facility use at least one of these dose optimization techniques: automated exposure control; mA and/or kV adjustment per patient size (includes targeted exams where dose is matched to clinical indication); or iterative reconstruction. REPORTING DATA: Count of CT and Cardiac NM exams in prior 12 months: This patient has received 0 known CTs and 0 known cardiac nuclear medicine studies in the 12 months prior to the current study. COMPARISON: US FNA THYROID 03/16/2020 10:28 AM FINDINGS: Brain: Chronic periventricular and subcortical small vessel ischemic changes. Mild atrophy associated. No acute hemorrhage, mass effect, midline shift, or extra-axial fluid collection. Cerebral ventricles: No ventriculomegaly. Paranasal sinuses: Visualized sinuses are unremarkable. No fluid levels. Mastoid air cells: Visualized mastoid air cells are well aerated. Bones/joints: Unremarkable. No acute fracture. Soft tissues: Unremarkable. IMPRESSION: No acute traumatic intracranial abnormality identified.
--- NOTE | 2023-04-20 16:25 | HMH.EDGENADL ---
Discharge Plan Disposition Patient Disposition: Admitted Prescriptions Prescriptions: No Action No Known Home Medications Referrals Follow up/Referrals: Provider,Referral, [Primary Care Provider] - See instructions Clinical Impressions Clinical Impression: Severe sepsis, Sepsis, Encephalopathy acute, Myocardial injury, GORGE (acute kidney injury), CAP (community acquired pneumonia), Acute UTI, Hypothermia Instructions Patient Instructions: DI for Altered Mental Status Discharge ED Provider: Asif Pacheco General Adult HPI General Chief complaint: Altered Mental Status Stated complaint: ams Time Seen by Provider: 04/20/23 16:15 History of Present Illness HPI narrative: Patient is an 87-year-old female who is severely altered and history is limited brought in for altered mental status. The story that we have been told is that a third-democrat caller that did not live with the patient called EMS for a wellness check and that when EMS arrived to the patient's house there was some difficulty with getting into the house to evaluate the patient and the police had to be involved. Once they found the patient they found her in very poor living conditions with bedbugs and significant infestations of lice and altered. No further history able to be obtained. Related Data Home Medications Medication Instructions Recorded Confirmed No Known Home Medications 03/20/21 03/20/21 Allergies Allergy/AdvReac Type Severity Reaction Status Date / Time Penicillins [PENICILLINS] Allergy Mild Verified 02/16/20 13:50 [facility] Disclaimer: The information contained in this section may have been updated after the patient was seen, as this information can be updated by other users. Social History Smoking Status: Never smoker alcohol intake: never substance use type: denies use current occupational status: retired Travel in the last 8 weeks: None household members: family and children housing: house ROS Obtained: Yes All systems reviewed & no additional complaints except as documented Physical Exam General General appearance: obtunded and other (Cool to the touch core temp 91 and degrees placed on Jenn hugger) Head Head exam: other (Diffuse lice infestation) Respiratory Respiratory exam: Absent normal lung sounds bilaterally or respiratory distress Cardiovascular Cardiovascular exam: Present regular rate Abdominal Exam Abdominal exam: Present soft; Absent distention, guarding or rebound Neurological Exam Neurological exam: Present alert and oriented X3 Expanded Neurological Exam Coma scale eye opening: To pain Coma scale motor response: Localizes to pain Coma scale verbal response: Incomprehensible Coma scale total: 9 Medical Decision Making Joe Inquiry Pt receiving controlled substance: No Vital Signs: 04/20/23 17:00 04/20/23 17:31 04/20/23 18:06 Temperature Temperature Source Pulse Rate 101 H 96 H 94 H Pulse Rate [Right] Respiratory Rate 15 16 16 Blood Pressure 141/116 H 128/44 L 94/56 L Blood Pressure [Right Arm] Blood Pressure Mean [Right Arm] Blood Pressure Source [Right Arm] 02 Sat by Pulse Oximetry 90 L 90 L 93 L Oxygen Delivery Method Room Air Room Air 04/20/23 15:45 Temperature 91.2 F L Temperature Source Rectal Pulse Rate Pulse Rate [Right] 109 H Respiratory Rate 25 H Blood Pressure Blood Pressure [Right Arm] 134/86 Blood Pressure Mean [Right Arm] 102 Blood Pressure Source [Right Arm] Automatic Cuff 02 Sat by Pulse Oximetry 95 Oxygen Delivery Method Room Air Lab Data Lab results reviewed: Yes I reviewed the patient's lab results. Lab Results 04/20/23 16:23: VBG pH 7.39, VBG pCO2 44.1, VBG pO2 142.7 H, VBG HCO3 26.1, VBG Total CO2 27.5 H, VBG O2 Saturation 98.6 H, VBG Base Excess 1.1 04/20/23 16:30: Urine Color Yellow, Urine Appearance Clear, Urine pH 5.5, Ur Specific [place] >= 1.030, Urine Protein 1+, Urine Glucose (UA) N
[2023-04-20 16:40] LABS: Microscopic, Urine URINE MICROSCOPIC (MICROSCOPIC)
[2023-04-20 16:49] LABS: Appearance,Urine CLEAR (Clear); Blood, Urine Negative (Negative); Color,Urine YELLOW (Yellow); Glucose,Urine (UA) Negative (Negative); Ketones,Urine Negative (Negative); Leukocyte Esterase,Urine 1+ (Negative); Nitrate,Urine Negative (Negative); PH,Urine 5.5 (5.0-8.5); Protein,Urine 1+ (Negative); Specific Gravity, Urine >= 1.030 (1.005-1.030); Urobilinogen,Urine 0.2 EU/dl (0.2)
[2023-04-20 16:55] LABS: Bilirubin,Urine 1+ (Negative)
[2023-04-20 17:04] LABS: Bacteria,Urine 2+ /lpf
[2023-04-20 17:14] LABS: Alanine Aminotransferase 33 U/L (12-78); Albumin/Globulin Ratio 0.9 (1.1-1.8); Alkaline Phosphatase 66 U/L (38-126); Anion Gap 14.7 mEq/L (5-15); Aspartate Amino Transferase 78 U/L (14-36); Blood Urea Nitrogen 67 mg/dl (7-17); Calcium 7.8 mg/dl (8.4-10.2); Carbon Dioxide 26 mmol/L (22.0-30.0); Chloride 112 mmol/L (98-107); Estimated Glomerular Filt Rate 24 ml/min (>60); GFR (African American) 29 ML/MIN (>60); Globulin 3.2 g/dL (1.3-3.2); Glucose 103 mg/dl (74-100); Magnesium 2.1 mg/dl (1.6-2.3); Phosphorous 6.1 mg/dl (2.5-4.5); Potassium 4.7 mmoL/L (3.5-5.1); Sodium 148 mmol/L (136-145); Total Protein,Serum 6.2 g/dl (6.3-8.2)
--- NOTE | 2023-04-20 17:42 | PC.NURSE ---
Lab notified that only 1 pediatric blood culture was obtained and requesting lab to stick for 2nd set. aware we were able to get a 22g to L index finger, but she will require a u/s guided IV
[2023-04-20 17:44] LABS: Thyroid Stimulating Hormone 3.68 uIU/mL (0.465-4.68)
--- NOTE | 2023-04-20 17:45 | PC.NURSE ---
Will H RT notified of VBG order and green top in lab
[2023-04-20 17:46] LABS: VBG Base Excess 1.1 mmol/L (-2.4-2.3); VBG HCO3 26.1 mmol/L (23-30); VBG Oxygen Saturation 98.6 % (50-70); VBG PCO2 44.1 mmol/L (35-51); VBG PH 7.39 mmol/L (7.31-7.41); VBG PO2 142.7 mmol/L (28-40); VBG Total CO2 27.5 mmol/L (23-27)
[2023-04-20 17:50] LABS: Basophils % 0.1 % (0.1-2.0); Eosinophils % 0.1 % (0.1-12.0); Hematocrit 28.1 % (37.0-47.0); Hemoglobin 8.2 g/dL (12.2-16.2); Lymphocytes # 0.3 K/mm3 (0.7-4.5); Lymphocytes % 7.8 % (10-50); Mean Corpuscular HGB Conc 29.3 g/dL (31.8-35.4); Mean Corpuscular Hemoglobin 23.5 pg (27.0-31.2); Mean Corpuscular Volume 80.3 fl (81-99); Mean Platelet Volume 10.5 fl (7.4-10.4); Monocytes # 0.3 K/mm3 (0.1-1.0); Monocytes % 7.8 % (1.7-9.3); Neutrophils # 3.7 K/mm3 (1.8-7.8); Neutrophils % 84.3 % (37.0-80.0); Platelet Count 159 K/mm3 (142-424); Red Blood Count 3.49 M/mm3 (4.20-5.40); Red Cell Distribution Width 16.1 % (11.5-17.5); White Blood Count 4.4 K/mm3 (4.8-10.8)
[2023-04-20 18:01] LABS: Lactic Acid 1.8 mmol/L (0.7-2.1)
--- NOTE | 2023-04-20 18:09 | PC.NURSE ---
Dr. Pacheco was notified of trending low BP (94/54). He would like a sepsis bolus, order placed. Reminded provider that we still have been unable to get further access from 22g Left index finger.
--- NOTE | 2023-04-20 18:10 | PC.NURSE ---
Pt daughter and granddaughter have both called to obtain update on pt. Both were informed that we are unable to give out pt information over the phone.
--- NOTE | 2023-04-20 18:11 | PC.NURSE ---
LAB at BS to attempt blood for second cx
--- NOTE | 2023-04-20 18:33 | PC.NURSE ---
called house for bed assignment
--- NOTE | 2023-04-20 19:54 | EXP.HP ---
History of Present Illness *Admission Date: 04/20/23 *Reason for visit:: sepsis/AMS *History of present illness: This is an 87-year-old female with no other known major history other than hypertension who is brought in for altered mental status, after a relative called police for a neighbor wellness check out. Data is limited due to patient mental status and there is no family at bedside at the time of this interview. Apparently. patient has a son that does regular check on her. Unknown last time seen well. Per ER documentation when EMS arrived to the patient's house there was some difficulty with getting into the house to evaluate the patient and the police had to be involved. Once they found the patient they found her in very poor living conditions with bedbugs and significant infestations of lice and altered. No further history able to be obtained. patient admitted for further treatment, stabilization and management. [facility] Disclaimer: The information contained in this section may have been updated after the patient was seen, as this information can be updated by other users. Medical History (Updated 04/21/23 @ 17:29 by Binh Bullard MD) Acute respiratory failure with hypoxia GORGE (acute kidney injury) Aortic heart murmur Aortic stenosis Chronic UTI (urinary tract infection) COVID-19 Fracture of radial neck, left, closed HTN (hypertension) Pneumonia Sepsis Shock Family History (Updated 04/21/23 @ 01:31 by Salas Zamora RN) No significant family history Social History (Updated 04/21/23 @ 14:26 by Laly Qureshi APRN) Smoking Status: Never smoker alcohol intake: never current occupational status: employed Travel in the last 8 weeks: None household members: family and children housing: house Review of Systems Review of Systems Review of systems:: unable to obtain Meds Home Medications and Allergies Home Medications Medication Instructions Recorded Confirmed Type No Known Home Medications 04/21/23 04/21/23 History New Prescriptions to Start Prescriptions: Allergies Allergy/AdvReac Type Severity Reaction Status Date / Time Penicillins [PENICILLINS] Allergy Mild Verified 02/16/20 13:50 Exam Data for Last 24 hours Vital signs and Labs for Last 24 Hours: Temp Pulse Resp BP Pulse Ox O2 Del Method 93.1 F L 101 H 18 104/52 L 90 L Room Air 04/20/23 19:36 04/20/23 19:36 04/20/23 19:36 04/20/23 19:36 04/20/23 18:30 04/20/23 19:36 Laboratory Results - last 24 hr 04/20/23 16:23: VBG pH 7.39, VBG pCO2 44.1, VBG pO2 142.7 H, VBG HCO3 26.1, VBG Total CO2 27.5 H, VBG O2 Saturation 98.6 H, VBG Base Excess 1.1 04/20/23 16:30: Urine Color Yellow, Urine Appearance Clear, Urine pH 5.5, Ur Specific [place] >= 1.030, Urine Protein 1+, Urine Glucose (UA) Negative, Urine Ketones Negative, Urine Blood Negative, Urine Nitrate Negative, Urine Bilirubin 1+ A, Urine Urobilinogen 0.2, Ur Leukocyte Esterase 1+ A, Urine RBC None, Urine WBC 3-5, Ur Squamous Epith Cells 10-20, Urine Bacteria 2+ 04/20/23 16:44: Sodium 148 H, Potassium 4.7, Chloride 112 H, Carbon Dioxide 26, Anion Gap 14.7, BUN 67 H, Creatinine 2.00 H, Estimated GFR 24 L, Est GFR ( Amer) 29 L, Glucose 103 H, Calcium 7.8 L, Phosphorus 6.1 H, Magnesium 2.1, Total Bilirubin 2.0 H, AST 78 H, ALT 33, Alkaline Phosphatase 66, Troponin I 0.10 H, Total Protein 6.2 L, Albumin 3.0 L, Globulin 3.2, Albumin/Globulin Ratio 0.9 L, TSH 3.68 04/20/23 17:25: WBC 4.4 L, RBC 3.49 L, Hgb 8.2 L, Hct 28.1 L, MCV 80.3 L, MCH 23.5 L, MCHC 29.3 L, RDW 16.1, Plt Count 159, MPV 10.5 H, Neut % (Auto) 84.3 H, Lymph % (Auto) 7.8 L, [place] % (Auto) 7.8, Eos % (Auto) 0.1, Baso % (Auto) 0.1, Neut # (Auto) 3.7, Lymph # (Auto) 0.3 L, [place] # (Auto) 0.3, Eos # (Auto) 0.0, Baso # (Auto) 0.0, Lactate 1.8 I & O for Last 24 hours: Intake & Output 04/17/23 04/18/23 04/19/23 04/20/23 23:59 23:59 23:59 23:59 Weight 68.039 kg Constitutional Constit
--- NOTE | 2023-04-20 21:14 | PC.NURSE ---
pt arrived to the floor via stretcher @ 19:43
[2023-04-20 21:27] LABS: Troponin I 0.12 ng/ml (0.00-0.034)
--- NOTE | 2023-04-20 21:45 | PC.NURSE ---
Patient upgraded to stepdown status r/t hypothermia, hypotension, and severe sepsis. Report from DARYA Bustillo at bedside. Patient GCS 8 with continued encephalopthy as reported from ED.
--- NOTE | 2023-04-20 22:57 | PC.NURSE ---
pt transferred to rm 219. report given
[2023-04-20 23:34] LABS: Troponin I 0.13 ng/ml (0.00-0.034)
[2023-04-21] VITALS (76 sets, daily range): BP systolic 76–132; BP diastolic 40–69; PULSE 69–129; RESP 12–24; TEMP 35.9–37.4; O2SAT 85–100; BMI 27.3
[2023-04-21 01:16] LABS: POC Glucose,Bedside 100 (70-110)
--- NOTE | 2023-04-21 01:17 | PC.NURSE ---
Completed bed bath and decontamination completed by this RN, Manolo RN, and Julissa RN. Patient has large infestation of lice to her hair. Hair is matted, dirty, and bleeding from the large amount of lice. 1 lice treatment completed. Rinsed as well as could be and then wrapped patient's hair in clear plastic bag with 2 hair nets as lice were still moving. Patient tolerated this well, but remained somnolent.. Skin was thin in most places; however, edema noted to RUE around to the nape of her neck. Erythema with open wound bed under right breast. Erythema under left breast without opening. Erythema surrounding vagina and inguinal areas bilaterally.
[2023-04-21 01:26] LABS: Campylobacter Not Detected (NotDetected); Cryptosporidium Not Detected (NotDetected); Cyclospora Cayetanesis Not Detected (NotDetected); Entamoeba histolytica Not Detected (NotDetected); Enteroaggregative E coli Not Detected (NotDetected); Enterotoxigenic E coli Not Detected (NotDetected); Plesimonas Shigalloides, PCR Not Detected (NotDetected); Salmonella, PCR Not Detected (NotDetected); Shiga-like toxin E coli Not Detected (NotDetected); Shigella Enterovasive E coli Not Detected (NotDetected); Vibrio Cholerae Not Detected (NotDetected); Vibrio, PCR Not Detected (NotDetected); Yersinia Entercolitica, PCR Not Detected (NotDetected)
[2023-04-21 01:27] LABS: Adenovirus F 40/41, stool Not Detected (NotDetected); Astrovirus Not Detected (NotDetected); Giardia lamblia Not Detected (NotDetected); Norovirus Not Detected (NotDetected); Rotavirus A Not Detected (NotDetected); Sapovirus Not Detected (NotDetected)
--- NOTE | 2023-04-21 02:20 | PC.NURSE ---
Bear Hugger warming device removed with improved temperature
--- NOTE | 2023-04-21 02:39 | PC.NURSE ---
Larry OJEDA was contacted per provider notification for hypotension, SBP<90 and MAP <65. Norepi gtt started per verbal phone order and protocol. See titration record
--- NOTE | 2023-04-21 04:07 | PC.NURSE ---
Placing bear hugger back on patient r/t hypothermia of 96.6 F rectal
--- NOTE | 2023-04-21 04:16 | ECG_ITS ---
APPROVED REPORT Exam: Resting ECG HR:119 bpm ECG Measurements Heart Rate 119 AXES QRSd 90 QRS -6 QT 362 T 181 QTc 432 Conclusion ATRIAL FIBRILLATION WITH RAPID VENTRICULAR RESPONSE ST DEVIATION AND MODERATE T-WAVE ABNORMALITY, CONSIDER LATERAL ISCHEMIA [-0.1+ mV T-WAVE IN I/aVL/V5/V6] ABNORMAL ECG UNCONFIRMED REPORT Electronically signed by : Ronald De Los Santos MD 04/21/2023 17:36:27
[2023-04-21 05:13] LABS: Basophils % 0.3 % (0.1-2.0); Eosinophils % 0.4 % (0.1-12.0); Hematocrit 21.1 % (37.0-47.0); Lymphocytes # 0.4 K/mm3 (0.7-4.5); Lymphocytes % 7.8 % (10-50); Mean Corpuscular HGB Conc 30.3 g/dL (31.8-35.4); Mean Corpuscular Hemoglobin 23.6 pg (27.0-31.2); Mean Platelet Volume 11.4 fl (7.4-10.4); Monocytes # 0.3 K/mm3 (0.1-1.0); Monocytes % 6.6 % (1.7-9.3); Neutrophils # 4.2 K/mm3 (1.8-7.8); Neutrophils % 84.8 % (37.0-80.0); Platelet Count 154 K/mm3 (142-424); Red Blood Count 2.71 M/mm3 (4.20-5.40); Red Cell Distribution Width 16.3 % (11.5-17.5)
[2023-04-21 05:53] LABS: Chloride 112 mmol/L (98-107); Potassium 4.1 mmoL/L (3.5-5.1); Sodium 148 mmol/L (136-145)
[2023-04-21 05:54] LABS: Hemoglobin 6.4 g/dL (12.2-16.2)
[2023-04-21 05:56] LABS: Alanine Aminotransferase 27 U/L (12-78); Albumin Level 2.7 g/dl (3.5-5.0); Alkaline Phosphatase 47 U/L (38-126); Anion Gap 11.1 mEq/L (5-15); Aspartate Amino Transferase 49 U/L (14-36); Bilirubin,Total 1.3 mg/dl (0.2-1.3); Blood Urea Nitrogen 70 mg/dl (7-17); Carbon Dioxide 29 mmol/L (22.0-30.0); Creatinine Clearance Estimated 24 mL/min (50-200); Estimated Glomerular Filt Rate 24 ml/min (>60); GFR (African American) 29 ML/MIN (>60); Globulin 2.6 g/dL (1.3-3.2); Total Protein,Serum 5.3 g/dl (6.3-8.2)
[2023-04-21 05:57] LABS: Calcium 7.2 mg/dl (8.4-10.2); Glucose 114 mg/dl (74-100)
--- NOTE | 2023-04-21 06:04 | PC.NURSE ---
Larry OJEDA at bedside with this RN to assess patient. Edema noted to her RUE, BLE, and still at the nape of her neck. Awaiting new orders to be placed by BUILDING CONSULTANT. Type and Screen drawn with lab at bedside. Occult stool sent per order.
[2023-04-21 06:09] LABS: Hematocrit 22.5 % (37.0-47.0)
[2023-04-21 06:12] LABS: Hemoglobin 6.6 g/dL (12.2-16.2)
[2023-04-21 06:16] LABS: Occult Blood,Stool Negative (Negative)
--- NOTE | 2023-04-21 06:56 | PC.NURSE ---
Larry OJEDA aware that patient is still on NRB mask at shift change.
--- NOTE | 2023-04-21 07:50 | CA_ITS ---
APPROVED REPORT EXAM: Comprehensive 2D, Doppler, and color-flow Echocardiogram Respite Care Provider: Gia Linn RDCS Ht: 5 ft 6 in Wt: 170lbs BSA: 1.87 BP: 104/52 mmHg Rhythm: Atrial Fibrillation Indications: SEPSIS,AF RVR, AMS,PNEUMONIA 2D Dimensions LA Volume 86.70 mL LA Volume Index 46.36 mL/m2 (M/F) 16-34 M-Mode Dimensions RVDd 2.28 cm (0.9-2.6) LA Diam 3.28 cm (1.9-4.0) LVDd 4.98 cm (3.5-5.7) LVDs 4.33 cm (3.5-5.7) IVSd 0.99 cm (0.6-1.1) PWd 0.87 cm (0.6-1.1) EF (Teich) 27.90% FS 13.10% EDV (Teich) 117.10 mL ESV (Teich) 84.40 mL Aortic Valve BAUDILIO Index 0.73 cm2/m2 AoV Peak [place]. 400.0 (50-130 cm/s) AO Peak GR. 64.00 mmHg AO Mean GR. 31.30 (<5 mmHg) AO VTI 63.8 (18-25 cm) BAUDILIO (VTI) 1.40 (2.5-4.5 cm2) Tricuspid Valve TR P. Velocity 370.00 cm/s RAP Estimate 10.00 mmHg RVSP 64.60 mmHg Left Ventricle The left ventricle is normal size. The left ventricular systolic function is normal. The left ventricular ejection fraction is within the normal range. There is increased LV wall thickness. There is normal LV segmental wall motion. Diastolic function is indeterminate due to atrial fibrillation. LVEF is 55%. Right Ventricle The right ventricle is moderately dilated. Right ventricle is mildly hypokinetic. Atria The left atrium is moderately dilated. The right atrium is moderately dilated. The interatrial septum is intact with no evidence for an atrial septal defect. Aortic Valve The aortic valve leaflets are moderately thickened. Severe aortic stenosis. BAUDILIO is 1.0 cm2 by continuity equation (LVOT 1.8 cm, AV VTI 69 cm, LVOT VTI 28 cm). Mean AV gradient 33 mmHg. Max AV gradient 67 mmHg. Moderate aortic regurgitation. Mitral Valve Moderate mitral annular calcification. The mitral valve leaflets are mildly thickened. No evidence of mitral valve stenosis. Mild mitral regurgitation. Tricuspid Valve The tricuspid valve leaflets are thin and pliable. Severe tricuspid regurgitation. RVSP > 60 mmHg. Pulmonic Valve The pulmonary valve is not well-visualized. Great Vessels The aortic root is normal in size. The ascending aorta is not well-visualized. IVC is normal in size, but collapses < 50% with respirophasic variation. RA pressure is estimated at 8 mmHg. Pericardium There is no pericardial effusion. Other Information Study Quality: Technically Difficult Conclusion Technically difficult study due to poor acoustic windows. Normal LV systolic function. Mild RV dilation with mild reduction in RV systolic function. Biatrial dilatation. Severe (BAUDILIO is 1.0 cm2 by continuity equation (LVOT 1.8 cm, AV VTI 69 cm, LVOT VTI 28 cm). Mean AV gradient 33 mmHg. Max AV gradient 67 mmHg). Moderate AI. Mild MR. Severe TR. Markedly elevated RVSP > 60 mmHg. In the setting of sepsis, there are no obvious vegetations noted. However, TTE cannot entirely rule out endocarditis, if clinically suspected. Further evaluation of the severe aortic stenosis is recommended once the patient recovers from sepsis. Electronically signed by : Mattie Winters MD 04/25/2023 00:15:41
--- NOTE | 2023-04-21 07:57 | EXP.PHA.CONS ---
Pharmacy Consult Date: 04/21/23 Time: 07:57 Referring provider: DR. PARADA Reason for Consult:: VANCOMYCIN DOSING Allergies Allergy/AdvReac Type Severity Reaction Status Date / Time Penicillins [PENICILLINS] Allergy Mild Verified 02/16/20 13:50 Home Medications Medication Instructions Recorded Confirmed Type No Known Home Medications 04/21/23 04/21/23 History New Prescriptions to Start Prescriptions: Height: 1.68 m Weight: 77.383 kg Laboratory Results:: Laboratory Results - last 24 hr 04/20/23 16:23: VBG pH 7.39, VBG pCO2 44.1, VBG pO2 142.7 H, VBG HCO3 26.1, VBG Total CO2 27.5 H, VBG O2 Saturation 98.6 H, VBG Base Excess 1.1 04/20/23 16:30: Urine Color Yellow, Urine Appearance Clear, Urine pH 5.5, Ur Specific [place] >= 1.030, Urine Protein 1+, Urine Glucose (UA) Negative, Urine Ketones Negative, Urine Blood Negative, Urine Nitrate Negative, Urine Bilirubin 1+ A, Urine Urobilinogen 0.2, Ur Leukocyte Esterase 1+ A, Urine RBC None, Urine WBC 3-5, Ur Squamous Epith Cells 10-20, Urine Bacteria 2+ 04/20/23 16:44: Sodium 148 H, Potassium 4.7, Chloride 112 H, Carbon Dioxide 26, Anion Gap 14.7, BUN 67 H, Creatinine 2.00 H, Estimated GFR 24 L, Est GFR ( Amer) 29 L, Glucose 103 H, Calcium 7.8 L, Phosphorus 6.1 H, Magnesium 2.1, Total Bilirubin 2.0 H, AST 78 H, ALT 33, Alkaline Phosphatase 66, Troponin I 0.10 H, Total Protein 6.2 L, Albumin 3.0 L, Globulin 3.2, Albumin/Globulin Ratio 0.9 L, TSH 3.68 04/20/23 17:25: WBC 4.4 L, RBC 3.49 L, Hgb 8.2 L, Hct 28.1 L, MCV 80.3 L, MCH 23.5 L, MCHC 29.3 L, RDW 16.1, Plt Count 159, MPV 10.5 H, Neut % (Auto) 84.3 H, Lymph % (Auto) 7.8 L, [place] % (Auto) 7.8, Eos % (Auto) 0.1, Baso % (Auto) 0.1, Neut # (Auto) 3.7, Lymph # (Auto) 0.3 L, [place] # (Auto) 0.3, Eos # (Auto) 0.0, Baso # (Auto) 0.0, Lactate 1.8 04/20/23 20:55: Troponin I 0.12 H 04/20/23 22:43: Troponin I 0.13 H 04/21/23 01:09: POC Glucose 100 04/21/23 05:08: WBC 5.0, RBC 2.71 L, Hgb 6.4 L* D, Hct 21.1 L, MCV 78.0 L, MCH 23.6 L, MCHC 30.3 L, RDW 16.3, Plt Count 154, MPV 11.4 H, Neut % (Auto) 84.8 H, Lymph % (Auto) 7.8 L, [place] % (Auto) 6.6, Eos % (Auto) 0.4, Baso % (Auto) 0.3, Neut # (Auto) 4.2, Lymph # (Auto) 0.4 L, [place] # (Auto) 0.3, Eos # (Auto) 0.0, Baso # (Auto) 0.0, Sodium 148 H, Potassium 4.1, Chloride 112 H, Carbon Dioxide 29, Anion Gap 11.1, BUN 70 H, Creatinine 2.00 H, Estimated Creat Clear 24, Estimated GFR 24 L, Est GFR ( Amer) 29 L, Glucose 114 H, Calcium 7.2 L, Total Bilirubin 1.3, AST 49 H D, ALT 27, Alkaline Phosphatase 47, Total Protein 5.3 L, Albumin 2.7 L, Globulin 2.6, Albumin/Globulin Ratio 1.0 L 04/21/23 05:56: Stool Occult Blood Negative 04/21/23 06:00: Hgb 6.6 L*, Hct 22.5 L, Blood Type A Positive, Antibody Screen Negative, Crossmatch (AHG) See Detail Medical History: Medical History (Updated 04/21/23 @ 01:30 by Salas Zamora RN) GORGE (acute kidney injury) Aortic heart murmur Aortic stenosis Chronic UTI (urinary tract infection) COVID-19 Fracture of radial neck, left, closed HTN (hypertension) Sepsis Assessment and Plan Assessment and plan all Dx Assessment and Plan for all problems:: Pharmacokinetic dosing service Objective: Patient: Floor: Age: 87 yo Serum creatinine: 2 mg/dL Height: 66.1 Inches Weight (kg): 77.4 Assessment: IBW (kg): 59.53 Dosing wt(kg): 77.4 Estimated Creatinine clearance (ml/min): 18.6 CRCL method: Cockcroft and Gault using ibw(default). Drug selected: Vancomycin Loading dose (mg): 0 Vd (liters): 65.8 (factor used: 0.85 L/kg) Jamshid (hr-1): 0.020 Half life (hrs): 34.66 Recommended dose: 1500 mg Interval: 48 hrs Infusion time (hrs): 2.0 Predicted peak (mcg/mL): 36.2 Predicted trough (mcg/mL): 14.43 Total body weight is being used for vancomycin dosing. Recommendations: Give Vancomycin 1500 mg q 48 hrs with an
--- NOTE | 2023-04-21 08:01 | EXP.SEPSISRE ---
[facility] Tissue Perfusion Eval Sepsis Re-Evaluation Performed: Yes Date Performed: 04/21/23 Time Performed: 02:00
--- NOTE | 2023-04-21 08:20 | PC.NURSE ---
second type and screen drawn per protocol with lab at bedside
--- NOTE | 2023-04-21 08:21 | PC.NURSE ---
echo being performed at bedside
--- NOTE | 2023-04-21 09:55 | PC.NURSE ---
no reaction to first unit prbc for first 15 minutes, increased rate from 75mL/hr to 125mL/hr
--- NOTE | 2023-04-21 10:20 | EXP.PULM.CON ---
History of Present Illness History of present illness: Much of the history is obtained from chart review. Patient not appropriate responding to verbal stimuli. Ms. Montilla is a 87-year-old female small to the ER after she was found down and presented to the ER and was concerning for septic shock was initiated broad-spectrum antibiotics pulmonary was called for further eval and management as concerning left lower lobe pulmonary infiltrates. Patient also noted to have significantly infested with lice. [facility] Disclaimer: The information contained in this section may have been updated after the patient was seen, as this information can be updated by other users. Medical History (Updated 04/21/23 @ 11:48 by Tree Tierney MD) Acute respiratory failure with hypoxia GORGE (acute kidney injury) Aortic heart murmur Aortic stenosis Chronic UTI (urinary tract infection) COVID-19 Fracture of radial neck, left, closed HTN (hypertension) Pneumonia Sepsis Shock Family History (Updated 04/21/23 @ 01:31 by Salas Zamora RN) Other No significant family history Social History (Updated 04/21/23 @ 01:32 by Salas Zamora RN) Smoking Status: Never smoker alcohol intake: never substance use type: denies use current occupational status: retired Travel in the last 8 weeks: None household members: family and children housing: house Review of Systems Review of Systems Review of systems:: unable to obtain Review of systems (narrative): Patient altered, not responding appropriately verbal stimuli. Grimacing to painful stimuli Pulmonology Exam Inpatient Vital signs and Labs for Last 24 Hours: Temp Pulse Resp BP Pulse Ox O2 Del Method O2 Flow Rate 99.4 F 95 H 24 106/52 L 100 Non-Rebreather 15 04/21/23 09:50 04/21/23 09:50 04/21/23 09:50 04/21/23 09:50 04/21/23 09:50 04/21/23 08:15 04/21/23 08:15 Laboratory Results - last 24 hr 04/20/23 16:23: VBG pH 7.39, VBG pCO2 44.1, VBG pO2 142.7 H, VBG HCO3 26.1, VBG Total CO2 27.5 H, VBG O2 Saturation 98.6 H, VBG Base Excess 1.1 04/20/23 16:30: Urine Color Yellow, Urine Appearance Clear, Urine pH 5.5, Ur Specific [place] >= 1.030, Urine Protein 1+, Urine Glucose (UA) Negative, Urine Ketones Negative, Urine Blood Negative, Urine Nitrate Negative, Urine Bilirubin 1+ A, Urine Urobilinogen 0.2, Ur Leukocyte Esterase 1+ A, Urine RBC None, Urine WBC 3-5, Ur Squamous Epith Cells 10-20, Urine Bacteria 2+ 04/20/23 16:44: Sodium 148 H, Potassium 4.7, Chloride 112 H, Carbon Dioxide 26, Anion Gap 14.7, BUN 67 H, Creatinine 2.00 H, Estimated GFR 24 L, Est GFR ( Amer) 29 L, Glucose 103 H, Calcium 7.8 L, Phosphorus 6.1 H, Magnesium 2.1, Total Bilirubin 2.0 H, AST 78 H, ALT 33, Alkaline Phosphatase 66, Troponin I 0.10 H, Total Protein 6.2 L, Albumin 3.0 L, Globulin 3.2, Albumin/Globulin Ratio 0.9 L, TSH 3.68 04/20/23 17:25: WBC 4.4 L, RBC 3.49 L, Hgb 8.2 L, Hct 28.1 L, MCV 80.3 L, MCH 23.5 L, MCHC 29.3 L, RDW 16.1, Plt Count 159, MPV 10.5 H, Neut % (Auto) 84.3 H, Lymph % (Auto) 7.8 L, [place] % (Auto) 7.8, Eos % (Auto) 0.1, Baso % (Auto) 0.1, Neut # (Auto) 3.7, Lymph # (Auto) 0.3 L, [place] # (Auto) 0.3, Eos # (Auto) 0.0, Baso # (Auto) 0.0, Lactate 1.8 04/20/23 20:55: Troponin I 0.12 H 04/20/23 22:43: Troponin I 0.13 H 04/21/23 01:09: POC Glucose 100 04/21/23 05:08: WBC 5.0, RBC 2.71 L, Hgb 6.4 L* D, Hct 21.1 L, MCV 78.0 L, MCH 23.6 L, MCHC 30.3 L, RDW 16.3, Plt Count 154, MPV 11.4 H, Neut % (Auto) 84.8 H, Lymph % (Auto) 7.8 L, [place] % (Auto) 6.6, Eos % (Auto) 0.4, Baso % (Auto) 0.3, Neut # (Auto) 4.2, Lymph # (Auto) 0.4 L, [place] # (Auto) 0.3, Eos # (Auto) 0.0, Baso # (Auto) 0.0, Sodium 148 H, Potassium 4.1, Chloride 112 H, Carbon Dioxide 29, Anion Gap 11.1, BUN 70 H, Creatinine 2.00 H, Estimated Creat Clear 24, Estimated GFR 24 L, Est GFR ( Amer) 29 L, Glucose 114 H, Calcium 7.2 L, Total Bilirubin 1.3, AST 49 H D, ALT 27, Alkaline Phosphatase 47, Total Protein 5.3 L, Albumin 2.7 L, Globuli
--- NOTE | 2023-04-21 10:59 | EXP.CARD.CON ---
History of Present Illness History of Present Illness Consult date: 04/21/23 Requesting physician: Agnieszka Hall Consult reason: atrial fibrillation Chief complaint: sepsis, afib, History of present illness: Hx obtained from Chart: 87-year-old female with no other known medical history other than hypertension brought for AMS. been found down at home for unknown period of time. On arrival sepsis protocols was activated since patient was visible altered and hypothermic. IV fluid recessitation was started. CT of head negative for trauma. CXR showed patchy left PNA. Imaging reviewed. Labs are consistent with severe sepsis, with electrolytes disturbances. UA collected, foul odor noticed. Physically patient visible poor grooming, covered on lice infestation, adults louses seen crawling all over as well as bedbug. After discussion made with ER, patient was admitted. Cardiology note: Cardiology was asked to evaluate patient for A-fib RVR. Patient is currently on a Levophed drip and an amiodarone drip and is A-fib rate controlled currently. Echocardiogram is pending. Morning labs reviewed and are as follow: WBC 5, hemoglobin 6.6, sodium 148, BUN 70, creatinine 2, troponin 0.1-0.13. Patient currently receiving 1 unit of PRBC. No signs of naomi bleeding noted per nurse report. [facility] Disclaimer: The information contained in this section may have been updated after the patient was seen, as this information can be updated by other users. Medical History (Updated 04/21/23 @ 17:29 by Binh Bullard MD) Acute respiratory failure with hypoxia GORGE (acute kidney injury) Aortic heart murmur Aortic stenosis Chronic UTI (urinary tract infection) COVID-19 Fracture of radial neck, left, closed HTN (hypertension) Pneumonia Sepsis Shock Family History (Updated 04/21/23 @ 01:31 by Salas Zamora RN) Other No significant family history Social History (Updated 04/21/23 @ 14:26 by Laly Qureshi APRN) Smoking Status: Never smoker alcohol intake: never current occupational status: employed Travel in the last 8 weeks: None household members: family and children housing: house Review of Systems Review of Systems Review of systems:: unable to obtain Exam Data for Last 24 hours Vital signs and Labs for Last 24 Hours: Temp Pulse Resp BP Pulse Ox O2 Del Method O2 Flow Rate 99.4 F 93 H 22 102/50 L 100 Non-Rebreather 15 04/21/23 10:35 04/21/23 10:35 04/21/23 10:35 04/21/23 10:35 04/21/23 10:35 04/21/23 10:00 04/21/23 10:00 Laboratory Results - last 24 hr 04/20/23 16:23: VBG pH 7.39, VBG pCO2 44.1, VBG pO2 142.7 H, VBG HCO3 26.1, VBG Total CO2 27.5 H, VBG O2 Saturation 98.6 H, VBG Base Excess 1.1 04/20/23 16:30: Urine Color Yellow, Urine Appearance Clear, Urine pH 5.5, Ur Specific [place] >= 1.030, Urine Protein 1+, Urine Glucose (UA) Negative, Urine Ketones Negative, Urine Blood Negative, Urine Nitrate Negative, Urine Bilirubin 1+ A, Urine Urobilinogen 0.2, Ur Leukocyte Esterase 1+ A, Urine RBC None, Urine WBC 3-5, Ur Squamous Epith Cells 10-20, Urine Bacteria 2+ 04/20/23 16:44: Sodium 148 H, Potassium 4.7, Chloride 112 H, Carbon Dioxide 26, Anion Gap 14.7, BUN 67 H, Creatinine 2.00 H, Estimated GFR 24 L, Est GFR ( Amer) 29 L, Glucose 103 H, Calcium 7.8 L, Phosphorus 6.1 H, Magnesium 2.1, Total Bilirubin 2.0 H, AST 78 H, ALT 33, Alkaline Phosphatase 66, Troponin I 0.10 H, Total Protein 6.2 L, Albumin 3.0 L, Globulin 3.2, Albumin/Globulin Ratio 0.9 L, TSH 3.68 04/20/23 17:25: WBC 4.4 L, RBC 3.49 L, Hgb 8.2 L, Hct 28.1 L, MCV 80.3 L, MCH 23.5 L, MCHC 29.3 L, RDW 16.1, Plt Count 159, MPV 10.5 H, Neut % (Auto) 84.3 H, Lymph % (Auto) 7.8 L, [place] % (Auto) 7.8, Eos % (Auto) 0.1, Baso % (Auto) 0.1, Neut # (Auto) 3.7, Lymph # (Auto) 0.3 L, [place] # (Auto) 0.3, Eos # (Auto) 0.0, Baso # (Auto) 0.0, Lactate 1.8 04/20/23 20:55: Troponin I 0.12 H 04/20/23 22:43: Troponin I 0.13 H 04/21/23 01:09: POC Glucose 100 04/21/23 05:
--- NOTE | 2023-04-21 11:45 | CA_ITS ---
FINAL REPORT CLINICAL HISTORY: HYpoxia COMPARISON: None FINDINGS: Color Doppler, duplex Doppler and compression sonography of the bilateral lower extremities was performed. There is no evidence of deep venous thrombosis from the level of the groin to the calf. The deep veins are patent and compressible. IMPRESSION: No evidence of deep venous thrombosis bilateral lower extremities. Reviewed, Interpreted and Dictated by Binh Noriega III, MD Transcribed by Mally Sanabria Authenticated and [facility]
[2023-04-21 12:09] LABS: Creatine Kinase 137 U/L (30-135)
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
[2023-04-21 13:46] LABS: PTT Heparin (inpatient only) 36.5 Seconds (23.6-34.0)
--- NOTE | 2023-04-21 14:32 | PC.NURSE ---
MD Ann in waiting room updating pt's daughter pt has been weaned to 2LNC from NRB this am, pt no longer on amio drip cardiology stopped drip, pt's levophed has been weaned to 2mcg/min and bp 96/50 (68), pt receiving second unit of prbc going at 125mL/hr, pt on NS @ 125mL/hr, antibiotics have been given per emar, pt on heparin drip at 900units/hr baseline PTT was 36.5 5,000unit bolus given prior to starting drip, pt still swollen on right side, pt not having adequate UOP (notified MD Ann during rounds), will continue weaning levophed drip in hopes of stopping drip jose
[2023-04-21 15:29] LABS: POC Glucose,Bedside 123 (70-110)
--- NOTE | 2023-04-21 15:30 | PC.NURSE ---
put levophed drip on hold, bp 122/54 (81)
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
--- NOTE | 2023-04-21 17:00 | PC.NURSE ---
shaved pt's head with permission from pt's daughter, changed sheets after finished
--- NOTE | 2023-04-21 17:09 | EXP.ACUTE.PN ---
Subjective *Date: 04/21/23 *Time: 17:33 Interval history: Patient somnolent today, groans to painful stimuli but no focalizing to pain. Spontaneous eye opening in the afternoon but not on morning rounds. Patient has foul smell about her. Live lice seen crawling on her forehead. Febrile. Tachycardic, A-fib on library monitor in room. On 2 L nasal cannula oxygen. Medical Exam Vital signs and Labs for Last 24 Hours: Vital Signs Temp Pulse Pulse Resp BP BP Pulse Ox 04/21/23 17:00 04/21/23 17:00 81 12 106/54 L 100 04/21/23 16:00 81 15 114/62 100 04/21/23 15:50 69 14 109/61 L 97 04/21/23 12:00 90 04/21/23 15:47 98.4 F 04/21/23 14:50 90 17 104/47 L 100 04/21/23 15:00 80 20 108/63 L 99 04/21/23 14:35 82 16 96/50 L 99 04/21/23 13:00 84 20 108/52 L 97 04/21/23 12:00 80 21 100/53 L 92 L 04/21/23 14:00 93 H 21 108/52 L 100 04/21/23 14:24 04/21/23 13:00 04/21/23 14:20 97.8 F 85 18 102/55 L 100 04/21/23 14:05 97.7 F 94 H 18 108/58 L 100 04/21/23 14:00 98.7 F 93 H 21 108/52 L 100 04/21/23 13:55 98.7 F 79 18 106/53 L 100 04/21/23 13:00 84 20 108/52 L 97 04/21/23 13:50 98.7 F 92 H 16 103/60 L 98 04/21/23 13:45 98.7 F 83 16 101/55 L 98 04/21/23 12:00 98.9 F 80 21 100/53 L 92 L 04/21/23 11:35 99.1 F 93 H 22 113/52 L 96 04/21/23 11:34 96 04/21/23 11:29 98.8 F 04/21/23 11:00 04/21/23 11:00 99.4 F 92 H 21 99/52 L 100 04/21/23 08:00 100 04/21/23 10:00 104 H 24 105/45 L 100 04/21/23 09:00 92 H 22 110/52 L 100 04/21/23 10:35 99.4 F 93 H 22 102/50 L 100 04/21/23 10:20 98 H 22 106/49 L 100 04/21/23 10:05 99.4 F 94 H 24 110/59 L 100 04/21/23 09:00 04/21/23 09:50 99.4 F 95 H 24 106/52 L 100 04/21/23 09:45 99.4 F 103 H 24 110/53 L 100 04/21/23 09:40 99.4 F 104 H 24 132/60 100 04/21/23 09:35 99.4 F 104 H 24 103/56 L 100 04/21/23 09:20 97.9 F 106 H 24 90/58 L 100 04/21/23 08:00 120 H 04/21/23 08:15 117 H 18 103/48 L 100 04/21/23 08:17 98.2 F 04/21/23 08:00 112 H 20 118/59 L 100 04/21/23 07:45 116 H 24 96/54 L 100 04/21/23 07:30 120 H 22 107/51 L 100 04/21/23 07:15 112 H 20 102/59 L 100 04/21/23 07:00 109 H 18 94/54 L 100 04/21/23 06:45 111 H 16 111/60 100 04/21/23 06:40 04/21/23 06:30 105 H 16 108/49 L 100 04/21/23 06:22 117 H 20 85 L 04/21/23 06:15 123 H 19 102/49 L 87 L 04/21/23 06:00 97.1 F L 116 H 17 117/51 L 90 L 04/21/23 05:45 116 H 19 125/58 L 90 L 04/21/23 05:00 04/21/23 05:30 92 H 19 96/56 L 90 L 04/21/23 05:25 94 H 17 86/42 L 90 L 04/21/23 05:21 106 H 18 85/43 L 90 L 04/21/23 05:18 100 H 18 87/45 L 90 L 04/21/23 05:13 100 H 18 86/41 L 90 L 04/21/23 05:10 93 H 18 76/44 L 93 L 04/21/23 05:05 105 H 17 83/54 L 90 L 04/21/23 05:00 108 H 17 79/41 L 93 L 04/21/23 04:45 105 H 17 89/48 L 90 L 04/21/23 04:30 97.3 F L 127 H 17 99/45 L 93 L 04/21/23 04:00 120 H 04/21/23 04:15 129 H 17 98/45 L 91 L 04/21/23 04:00 109 H 21 91/59 L 95 04/21/23 03:45 96.6 F L 112 H 19 104/47 L 92 L 04/21/23 03:35 99 H 17 96/69 L 94 L 04/21/23 03:30 99 H 17 89/43 L 94 L 04/21/23 03:15 108 H 17 106/53 L 95 04/21/23 03:00 102 H 17 96/52 L 93 L 04/21/23 02:47 04/21/23 02:45 106 H 17 91/56 L 89 L 04/21/23 02:35 109 H 17 88/45 L 92 L 04/21/23 02:30 103 H 17 104/50 L 91 L 04/21/23 02:25 92 H 17 82/48 L 91 L 04/21/23 02:20 98.4 F 94 H 16 80/44 L 92 L 04/21/23 02:00 97.3 F L 102 H 19 78/41 L 93 L 04/20/23 20:00 90 04/21/23 01:18 108 H 19 9
[2023-04-21 20:10] LABS: Chloride 112 mmol/L (98-107)
[2023-04-21 20:11] LABS: Potassium 4.4 mmoL/L (3.5-5.1); Sodium 148 mmol/L (136-145)
[2023-04-21 20:14] LABS: Anion Gap 10.4 mEq/L (5-15); Blood Urea Nitrogen 66 mg/dl (7-17); Calcium 6.9 mg/dl (8.4-10.2); Carbon Dioxide 30 mmol/L (22.0-30.0); Creatinine Clearance Estimated 20 mL/min (50-200); Estimated Glomerular Filt Rate 19 ml/min (>60); GFR (African American) 23 ML/MIN (>60); Glucose 110 mg/dl (74-100)
[2023-04-21 20:29] LABS: PTT Heparin (inpatient only) > 200.0 Seconds (23.6-34.0)
--- NOTE | 2023-04-21 20:38 | PC.NURSE ---
Spoke to Ash with [facility] who reports new Heparin orders. See MAR for new rate
--- NOTE | 2023-04-21 20:49 | PC.NURSE ---
Patient has non-verbal pain scale of level 7- medicated per MAR
[2023-04-21 21:33] LABS: Hematocrit 28.7 % (37.0-47.0); Hemoglobin 9.1 g/dL (12.2-16.2)
[2023-04-21 23:22] LABS: Hematocrit 27.6 % (37.0-47.0); Hemoglobin 8.7 g/dL (12.2-16.2)
[2023-04-22] VITALS (24 sets, daily range): BP systolic 87–121; BP diastolic 42–67; PULSE 71–94; RESP 14–20; TEMP 34.7–36.6; O2SAT 92–100; BMI 27.3; BMI 30.2
--- NOTE | 2023-04-22 01:38 | PC.NURSE ---
Full bed bath given with attention to patient's head/scalp. Area was thoroughly cleaned to address the dried blood, lice eggs, and TNC lice. Patient tolerated well. Large laceration to the posterior head had no bleeding, a pink wound bed with spots of purulent areas. Surgery has been consulted for this laceration. Patient's RUE remains edematous and has began to weep in certain areas. Patient has palpable 2+ pulses. BLE thigh high SCD's placed on patient to assist with comfort. Bilateral heel protectors placed. All other bony prominences addressed with pillows and appear without pressure injury.
--- NOTE | 2023-04-22 02:04 | CA_ITS ---
FINAL REPORT TECHNIQUE: Graded compression, spectral analysis and ultrasound images of the venous system of the right upper extremity were obtained. CLINICAL HISTORY: r/o DVT vs lymph edema FINDINGS: The jugular vein, subclavian vein, axillary vein, brachial vein, cephalic vein and basilic venous system are fully compressible and demonstrate no evidence of thrombosis. IMPRESSION: No evidence of thrombosis of the venous system of the right upper extremity. Reviewed, Interpreted and Dictated by Binh Noriega III, MD Transcribed by Celena Kelly Authenticated and [facility]
[2023-04-22 02:25] LABS: PTT Heparin (inpatient only) > 200.0 Seconds (23.6-34.0)
[2023-04-22 04:44] LABS: POC Glucose,Bedside 101 (70-110)
[2023-04-22 05:51] LABS: Basophils % 0.2 % (0.1-2.0); Eosinophils % 0.7 % (0.1-12.0); Hematocrit 29.8 % (37.0-47.0); Hemoglobin 8.9 g/dL (12.2-16.2); Lymphocytes # 0.6 K/mm3 (0.7-4.5); Lymphocytes % 12.8 % (10-50); Mean Corpuscular Hemoglobin 24.4 pg (27.0-31.2); Mean Corpuscular Volume 81.3 fl (81-99); Mean Platelet Volume 10.8 fl (7.4-10.4); Monocytes # 0.3 K/mm3 (0.1-1.0); Monocytes % 5.9 % (1.7-9.3); Neutrophils # 3.7 K/mm3 (1.8-7.8); Neutrophils % 80.4 % (37.0-80.0); Platelet Count 106 K/mm3 (142-424); Red Blood Count 3.67 M/mm3 (4.20-5.40); Red Cell Distribution Width 15.9 % (11.5-17.5); White Blood Count 4.6 K/mm3 (4.8-10.8)
[2023-04-22 05:58] LABS: Chloride 115 mmol/L (98-107); Sodium 149 mmol/L (136-145)
[2023-04-22 06:01] LABS: Alanine Aminotransferase 25 U/L (12-78); Albumin Level 2.8 g/dl (3.5-5.0); Albumin/Globulin Ratio 1.1 (1.1-1.8); Alkaline Phosphatase 43 U/L (38-126); Aspartate Amino Transferase 48 U/L (14-36); Bilirubin,Total 0.8 mg/dl (0.2-1.3); Blood Urea Nitrogen 64 mg/dl (7-17); Calcium 6.7 mg/dl (8.4-10.2); Carbon Dioxide 28 mmol/L (22.0-30.0); Creatinine Clearance Estimated 21 mL/min (50-200); Estimated Glomerular Filt Rate 20 ml/min (>60); GFR (African American) 24 ML/MIN (>60); Globulin 2.6 g/dL (1.3-3.2); Glucose 111 mg/dl (74-100); Magnesium 1.8 mg/dl (1.6-2.3); Total Protein,Serum 5.4 g/dl (6.3-8.2)
[2023-04-22 06:27] LABS: Iron 26 ug/dL (37-170)
[2023-04-22 06:36] LABS: Total Iron Binding Capacity 250 ug/dL (265-497)
[2023-04-22 07:03] LABS: Ferritin 25.9 ng/ml (11.1-264)
[2023-04-22 09:42] LABS: PTT Heparin (inpatient only) 66.8 Seconds (23.6-34.0)
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
--- NOTE | 2023-04-22 10:10 | PC.NURSE ---
increased heparin drip to 550units/hr per [facility] Rx
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
[2023-04-22 12:20] LABS: Vitamin B12 907 pg/mL (239-931)
--- NOTE | 2023-04-22 12:59 | XR_ITS ---
FINAL REPORT CLINICAL HISTORY: NGT placement COMPARISON: 04/20/2023 FINDINGS: SINGLE-VIEW CHEST There is cardiomegaly with pulmonary vascular congestion. The mediastinum is normal. There are left lung opacities, favor atelectasis. Small left effusion is identified. NG tube tip is most likely in the right lower lobe. There is no pneumothorax. IMPRESSION: Malpositioned NG tube. Recommend withdrawing and repositioning. Felicitas Del Rio was notified of findings on 04/22/2023 at 3:35 p.m. Reviewed, Interpreted and Dictated by Binh Noriega III, MD Transcribed by Celena Kelly Authenticated and [facility]
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
[2023-04-22 14:20] LABS: PTT Heparin (inpatient only) 63.8 Seconds (23.6-34.0)
[2023-04-22 14:24] LABS: Folate 6.25 ng/mL
--- NOTE | 2023-04-22 15:09 | PC.NURSE ---
started Jevity tubefeeding at 20mL/hr and flush 150mL every 4 hours
--- NOTE | 2023-04-22 15:30 | EXP.EVENT.NO ---
Advance care planning note: Active diagnosis: 3 protein calorie malnutrition, sepsis, encephalopathy, GORGE, aortic stenosis, lisinopril station. The patient's active diagnoses are of sufficient risk that focused discussion on advanced care planning is indicated in order to allow the patient to thoughtfully consider personal goals of care; and, if situations arise that prevent the ability to personally give input, to ensure appropriate representation of their personal desires through documentation or informed surrogate decision makers. Discussion: Persons present and participating in discussion: Daughter Pauly Discussion: Discussed mother's condition, need for further conversation including brother to discuss goals of care. Updated on minor improvement with spontaneously opening of eyes. Daughter asked questions about prognosis of improvement. Discussed severity of aortic stenosis and its life-limiting nature if not addressed. Also discussed the patient has not clinically stable enough to consider intervention on her heart. Daughter expressed understanding. Asked questions about the likelihood of improvement, surviving to discharge, and what discharge plan would be if patient improved. Discussed initiation of tube feeds today to provide nutrition. Time spent: Total time spent [id number] in education and discussion directly related to advance care plannin minutes George Ann Discussion by phone on 04/22
--- NOTE | 2023-04-22 15:46 | XR_ITS ---
FINAL REPORT CLINICAL HISTORY: NGT removed and replaced COMPARISON: 04/22/2023 FINDINGS: SINGLE-VIEW CHEST There is cardiomegaly with pulmonary vascular congestion.. The mediastinum is normal. NG tube tip terminates in the fundus of the stomach. There is no pneumothorax. IMPRESSION: NG tube as above. Reviewed, Interpreted and Dictated by Binh Noriega III, MD Transcribed by Celena Kelly Authenticated and [facility]
--- NOTE | 2023-04-22 15:46 | PC.NURSE ---
radiology notified this RN that NGT placed in Right nare not in stomach, this RN removed NGT from right nare and placed new 16FR NGT in left nare at 55cm, new cxr ordered to confirm placement
[2023-04-22 18:16] LABS: POC Glucose,Bedside 101 (70-110)
--- NOTE | 2023-04-22 18:28 | PC.NURSE ---
started jevity tubefeeds at rate of 20mL/hr and flush 150mL every four hours
--- NOTE | 2023-04-22 18:36 | EXP.ACUTE.PN ---
Subjective *Date: 04/22/23 *Time: 18:36 Interval history: Patient remains in critical condition. Minimally responsive on exam this morning. Will open eyes spontaneously to voice and painful stimuli. Grimaces with pain, unable to focalize however. Spontaneous movement noted. Tolerating 2 L nasal cannula oxygen. Blood pressure soft but still stable with MAP greater than 65. Off norepinephrine for almost 24 hours now. No family at bedside this morning. Medical Exam Vital signs and Labs for Last 24 Hours: Vital Signs Temp Pulse Pulse Resp BP Pulse Ox O2 Del Method 04/22/23 16:00 96 Nasal Cannula 04/22/23 18:23 Nasal Cannula 04/22/23 18:00 71 16 88/47 L 94 L Nasal Cannula 04/22/23 16:00 80 04/22/23 12:00 80 04/22/23 17:00 Nasal Cannula 04/22/23 16:00 79 16 100/49 L 97 Nasal Cannula 04/22/23 15:54 97.6 F 04/22/23 15:00 Nasal Cannula 04/22/23 15:00 77 16 112/58 L 99 Nasal Cannula 04/22/23 14:00 71 14 88/42 L 96 Nasal Cannula 04/22/23 13:00 Nasal Cannula 04/22/23 12:00 77 14 99/55 L 96 Nasal Cannula 04/22/23 11:00 Nasal Cannula 04/22/23 11:54 97.9 F 04/22/23 10:41 79 04/22/23 08:00 80 04/22/23 09:00 95 Nasal Cannula 04/22/23 09:00 Nasal Cannula 04/22/23 10:00 74 14 102/60 L 95 Nasal Cannula 04/22/23 09:56 88 04/22/23 08:00 86 16 96/54 L 92 L Nasal Cannula 04/22/23 07:38 97.8 F 04/22/23 06:08 Nasal Cannula 04/22/23 06:00 86 15 94/52 L 94 L Nasal Cannula 04/22/23 05:00 83 14 87/54 L 95 Nasal Cannula 04/22/23 05:00 Nasal Cannula 04/22/23 04:00 Nasal Cannula 04/22/23 04:00 87 15 93/54 L 94 L Nasal Cannula 04/22/23 04:00 94 H 04/22/23 03:00 Nasal Cannula 04/22/23 03:00 87 14 91/62 L 98 Nasal Cannula 04/22/23 02:00 97.7 F 87 14 96/67 L 100 Nasal Cannula 04/22/23 01:00 Nasal Cannula 04/22/23 01:28 89 17 97/57 L 95 Nasal Cannula 04/22/23 00:00 86 04/22/23 00:00 84 15 110/52 L 100 Nasal Cannula 04/21/23 23:00 82 15 92/55 L 98 Nasal Cannula 04/21/23 23:00 Nasal Cannula 04/21/23 20:00 76 04/21/23 22:00 78 14 102/50 L 99 Nasal Cannula 04/21/23 21:00 80 15 94/49 L 99 Nasal Cannula 04/21/23 21:00 Nasal Cannula 04/21/23 20:00 76 96 Nasal Cannula 04/21/23 20:00 98.2 F 76 15 105/56 L 98 Nasal Cannula 04/21/23 18:46 96 H 17 96/46 L 99 Nasal Cannula 04/21/23 18:46 Nasal Cannula O2 Flow Rate 04/22/23 16:00 2 04/22/23 18:23 2 04/22/23 18:00 2 04/22/23 16:00 04/22/23 12:00 04/22/23 17:00 2 04/22/23 16:00 2 04/22/23 15:54 04/22/23 15:00 2 04/22/23 15:00 2 04/22/23 14:00 2 04/22/23 13:00 2 04/22/23 12:00 2 04/22/23 11:00 2 04/22/23 11:54 04/22/23 10:41 04/22/23 08:00 04/22/23 09:00 2 04/22/23 09:00 2 04/22/23 10:00 2 04/22/23 09:56 04/22/23 08:00 2 04/22/23 07:38 04/22/23 06:08 2 04/22/23 06:00 2 04/22/23 05:00 2 04/22/23 05:00 2 04/22/23 04:00 04/22/23 04:00 2 04/22/23 04:00 04/22/23 03:00 2 04/22/23 03:00 2 04/22/23 02:00 2 04/22/23 01:00 2 04/22/23 01:28 2 04/22/23 00:00 04/22/23 00:00 2 04/21/23 23:00 2 04/21/23 23:00 2 04/21/23 20:00 04/21/23 22:00 2 04/21/23 21:00 2 04/21/23 21:00 2 04/21/23 20:00 2 04/21/23 20:00 2 04/21/23 18:46 2 04/21/23 18:46 2 Intake and Output 04/22/23 04/22/23 04/22/23 07:59 15:59 23:59 Intake Total 1104 / 1104 0 / 1104 Output Total 300 / 500 200 / 500 0 / 500 Balance 804 / 604 -200 / 604 0 / 604 Intake: Intake, Oral Amount 0 / 0 0 / 0 Infusion Intake 1104 / 1104 0.9 % Sodium Chloride 1000ML 1, 1000 / 1000 000 ml @ 125 mls/hr IV .Q8H [facility] Rx#:[id number] Heparin Sodium,Porcine/D5w 500 104 / 104 ml @ 650 UNITS/HR 13 mls/hr
--- NOTE | 2023-04-22 21:00 | PC.NURSE ---
Unable to obtain PIV access or obtain 1900 BMP and aPTT. LYNETTE Lundy at bedside and aware, OK to cancel and try again in a.m.
--- NOTE | 2023-04-22 21:47 | PC.NURSE ---
PIV Access: At beginning of shift, freight unloader notified this RN of multiple unsuccessful attempts to obtain BMP and scheduled aPTT. This RN notified kareen Sarabiagreenhouse grower, regarding potential need for US-guided PIV for pt with Hx of multiple unsuccessful attempts made by lab and RN. RN attempted to search for access, but was unable to find any d/t severe BUE edema. JESUS Nolan maintainer central office assessed pt. Multiple attempts by LYNETTE Lundy, kareen Sarabiagreenhouse grower, and JESUS Nolan maintainer central office made to obtain PIV access without success. US-guided PIV attempted in E without success. Notified pharmacy of inability to obtain aPTT. Per protocol, pt already therapeutic x2, so aPTT rescheduled for 0600 labs, if able to obtain. Pt currently running heparin @ 550 u/hr through 20 g LFA. LYNETTE Lundy aware of situation, said he will consult for central line in a.m. and to notify if PIV access lost.
[2023-04-22 23:44] LABS: POC Glucose,Bedside 115 (70-110)
[2023-04-23] VITALS (17 sets, daily range): BP systolic 119–149; BP diastolic 48–64; PULSE 70–102; RESP 12–20; TEMP 35.3–37.6; O2SAT 90–100; BMI 30.2
[2023-04-23 04:04] LABS: Clostridium Difficile A/B, PCR Detected (NotDetected)
[2023-04-23 04:05] LABS: Enteropathogenic E coli Detected (NotDetected)
--- NOTE | 2023-04-23 05:35 | PC.NURSE ---
Shift Summary: Pt remains unresponsive to verbal commands, withdraws to pain and discomfort, and opens eyes spontaneously but does not track. Pt able to move all extremities, most notably LUE, but unable to web software engineer purposefully. Pt hypothermic through most of shift: Jenn hugger, warm blankets, and increased room temperature applied until rectal temp of 99.4 obtained. Other VSS on 2 L NC. NGT remains in place, no gastric residuals, able to increase TF rate to 30 mL/hr at 0400. No BM, though (+) for C. Diff and EPEC, AOC DIRECTOR INTELLIGENCE OFFICER notified. Huang in place. BC (+) for gram (+) cocci, AOC DIRECTOR INTELLIGENCE OFFICER notified. See previous PIV access note regarding PIV access. AOC DIRECTOR INTELLIGENCE OFFICER aware of situation, in-person updates about PIV access given intermittently throughout shift.
[2023-04-23 06:04] LABS: POC Glucose,Bedside 101 (70-110)
[2023-04-23 06:23] LABS: Basophils % 0.2 % (0.1-2.0); Eosinophils # 0.1 K/mm3 (0.0-0.4); Eosinophils % 3.9 % (0.1-12.0); Hematocrit 28.3 % (37.0-47.0); Hemoglobin 8.6 g/dL (12.2-16.2); Lymphocytes # 0.4 K/mm3 (0.7-4.5); Lymphocytes % 11.3 % (10-50); Mean Corpuscular HGB Conc 30.3 g/dL (31.8-35.4); Mean Corpuscular Hemoglobin 24.7 pg (27.0-31.2); Mean Corpuscular Volume 81.6 fl (81-99); Mean Platelet Volume 10.7 fl (7.4-10.4); Monocytes # 0.3 K/mm3 (0.1-1.0); Monocytes % 7.4 % (1.7-9.3); Neutrophils # 2.8 K/mm3 (1.8-7.8); Neutrophils % 77.2 % (37.0-80.0); Platelet Count 87 K/mm3 (142-424); Red Blood Count 3.48 M/mm3 (4.20-5.40); Red Cell Distribution Width 15.9 % (11.5-17.5); White Blood Count 3.7 K/mm3 (4.8-10.8)
[2023-04-23 06:41] LABS: Chloride 115 mmol/L (98-107); Potassium 3.9 mmoL/L (3.5-5.1); Sodium 147 mmol/L (136-145)
[2023-04-23 06:44] LABS: Alanine Aminotransferase 23 U/L (12-78); Albumin Level 2.5 g/dl (3.5-5.0); Albumin/Globulin Ratio 0.9 (1.1-1.8); Alkaline Phosphatase 41 U/L (38-126); Anion Gap 7.9 mEq/L (5-15); Aspartate Amino Transferase 40 U/L (14-36); Bilirubin,Total 0.6 mg/dl (0.2-1.3); Blood Urea Nitrogen 63 mg/dl (7-17); Calcium 7.1 mg/dl (8.4-10.2); Carbon Dioxide 28 mmol/L (22.0-30.0); Creatinine Clearance Estimated 23 mL/min (50-200); Estimated Glomerular Filt Rate 22 ml/min (>60); GFR (African American) 27 ML/MIN (>60); Globulin 2.7 g/dL (1.3-3.2); Glucose 105 mg/dl (74-100); Total Protein,Serum 5.2 g/dl (6.3-8.2)
[2023-04-23 07:38] LABS: Magnesium 1.8 mg/dl (1.6-2.3); Phosphorous 4.2 mg/dl (2.5-4.5)
[2023-04-23 08:35] LABS: PTT Heparin (inpatient only) 80.3 Seconds (23.6-34.0)
--- NOTE | 2023-04-23 09:42 | EXP.PULM.PN ---
Subjective *Date: 04/23/23 *Time: 10:42 Interval history: No acute respiratory events overnight. No significant improvement in mentation, remains in to painful stimuli Pulmonology Exam Inpatient Vital signs and Labs for Last 24 Hours: Temp Pulse Resp BP Pulse Ox O2 Del Method O2 Flow Rate 97.9 F 94 H 16 121/60 94 L Nasal Cannula 3 04/23/23 08:00 04/23/23 06:00 04/23/23 06:00 04/23/23 06:00 04/23/23 06:00 04/23/23 06:48 04/23/23 06:48 FiO2 28 04/22/23 22:00 Laboratory Results - last 24 hr 04/20/23 23:59: Stl Aeromonas (PCR) Not detected, Stl C. cayetanensis PCR Not detected, Stool Rotavirus (PCR) Not detected, Stl Adenov F 40/41 PCR Not detected, Stool Astrovirus (PCR) Not detected, Stool Campylobacter PCR Not detected, Stl C.difficile Tox PCR Detected A, Stool Cryptosporidium PCR Not detected, Stl E.coli Shiga Tox PCR Not detected, Stool E coli O157 PCR TNP, Stl Enterotoxigenic E PCR Not detected, Stool EPEC (PCR) Detected A, Stool EAEC (PCR) Not detected, Stl E. histolytica PCR Not detected, Stool Giardia Lamblia PCR Not detected, Stool Salmonella PCR Not detected, Stool Sapovirus (PCR) Not detected, Stl P. shigelloides PCR Not detected, Stl Shigella/EIEC PCR Not detected, St Y.enterocolitica PCR Not detected, Stool Vibrio (PCR) Not detected, Stl Vibrio cholerae PCR Not detected, Stl Norovirus GI/GII PCR Not detected 04/22/23 09:20: APTT 66.8 H*, Vitamin B12 907, Folate 6.25 04/22/23 13:54: APTT 63.8 H* 04/22/23 17:58: POC Glucose 101 04/22/23 23:29: POC Glucose 115 H 04/23/23 05:55: POC Glucose 101 04/23/23 06:02: WBC 3.7 L, RBC 3.48 L, Hgb 8.6 L, Hct 28.3 L, MCV 81.6, MCH 24.7 L, MCHC 30.3 L, RDW 15.9, Plt Count 87 L, MPV 10.7 H, Neut % (Auto) 77.2, Lymph % (Auto) 11.3, [place] % (Auto) 7.4, Eos % (Auto) 3.9, Baso % (Auto) 0.2, Neut # (Auto) 2.8, Lymph # (Auto) 0.4 L, [place] # (Auto) 0.3, Eos # (Auto) 0.1, Baso # (Auto) 0.0, Sodium 147 H, Potassium 3.9, Chloride 115 H, Carbon Dioxide 28, Anion Gap 7.9, BUN 63 H, Creatinine 2.10 H, Estimated Creat Clear 23, Estimated GFR 22 L, Est GFR ( Amer) 27 L, Glucose 105 H, Calcium 7.1 L, Phosphorus 4.2 D, Magnesium 1.8, Total Bilirubin 0.6, AST 40 H, ALT 23, Alkaline Phosphatase 41, Total Protein 5.2 L, Albumin 2.5 L D, Globulin 2.7, Albumin/Globulin Ratio 0.9 L 04/23/23 07:40: APTT 80.3 H* I & O for Labs for Last 24 Hours: Intake & Output 04/20/23 04/21/23 04/22/23 04/23/23 23:59 23:59 23:59 23:59 Intake Total 3630 / 3630 1965.203 / 2241.203 1467 / 1467 185 / 185 Output Total 300 / 500 605 / 655 2350 / 2350 600 / 600 Balance 3330 / 3130 1360.203 / 1586.203 -883 / -883 -415 / -415 Weight 170 lb 8 oz 170 lb 6.677 oz 170 lb 6.677 oz 170 lb 7 oz Microbiology Reports for the Last 24 Hours: Microbiology 04/20/23 18:25 Blood Blood Culture - Preliminary Constitutional: Present severe distress Head: Present normocephalic and laceration; Absent atraumatic Comment:: Laceration/gaping wound in her occipital area Neck: Present normal inspection and full ROM Respiratory: Present respiratory distress, rhonchi and diminished air movement; Absent normal respiratory effort or able to speak in complete sentences Cardiac: Present S1/S2, Tachycardia and radial pulses present GI: Present soft and distention; Absent tenderness or guarding Rectal (female): Present deferred (female): Present deferred Skin: Present intact; Absent cyanosis or jaundice Neuro: Absent alert, awake or oriented x 3 Extremities: Present normal inspection and edema; Absent clubbing or cyanosis Psychiatric: Present normal affect and cooperative Assessment and Plan *Assessment and plan (1) Pneumonia: Status: Acute Qualifiers: Laterality: left Lung location: lower lobe of lung Pneumonia type: due to unspecified organism Qualified Code(s): J18.9 - Pneumonia, unspecified organism Category: Medical Code(s): J18.9 - Pneumonia, unspecified organism (2) Acute respiratory fail
--- NOTE | 2023-04-23 09:50 | HMH.OTEV ---
OT Inpatient Evaluation Rehab OT IP Evaluation Start: 04/22/23 07:02 Freq: ONCE Status: Active Protocol: Document 04/22/23 09:49 RAINE (Rec: 04/23/23 09:50 RAINE [id number]) Rehab OT IP Assessment Subjective History Pt is an 87 y/o female brought to [facility] on 04/20/23 for altered mental status. Per history & physical note, a relative called police for a neighbor wellness check out. Data is limited due to patient mental status and there is no family at bedside at the time of this interview. Apparently. patient has a son that does regular check on her. Unknown last time seen well. Per ER documentation, when EMS arrived to the patient's house there was some difficulty with getting into the house to evaluate the patient and the police had to be involved. Once they found the patient they found her in very poor living conditions with bedbugs and significant infestations of lice. No further history able to be obtained, patient admitted for further treatment , stabilization and management . Subjective Pt unable to respond to stimuli, follow simple commands such as squeeze my hand, or communicate with therapists other than a moan when her name was stated. Pt unable to look at therapist or visually track. No family was present at bedside during the evaluation therefore subjective history was unable to be obtained. Rehab OT IP prob,goals,plan Problems Date of Evaluation: 04/23/23 Rehab Potential Rehab Potential Innapropriate for Skilled Therapy Discharge Plan OT Discharge Plan Due to lack of response to stimuli, communication, simple command
--- NOTE | 2023-04-23 09:56 | EXP.ACUTE.PN ---
Subjective *Date: 04/23/23 *Time: 14:00 Interval history: Chronic this morning, patient is hemodynamically stable and afebrile. Did have some hypothermia this morning however necessitating warm blankets and bear hugger for which her temperature normalized. Continues to have light yellow urine output in Huang. Stable on 3 L nasal cannula oxygen. -2 L urine output yesterday. Opens eyes to voice but no meaningful interaction. Grimaces to painful stimuli. Spontaneous movement of extremities. Medical Exam Vital signs and Labs for Last 24 Hours: Vital Signs Temp Pulse Pulse Resp BP BP Pulse Ox 04/23/23 08:00 97.9 F 04/23/23 06:48 04/23/23 06:00 99.1 F 94 H 16 121/60 94 L 04/23/23 05:00 04/23/23 04:00 102 H 04/23/23 04:00 97.9 F 96 H 16 123/49 L 94 L 04/23/23 04:00 98 H 18 93 L 04/23/23 03:00 04/23/23 00:00 78 04/23/23 02:00 95.6 F L 84 12 119/52 L 97 04/23/23 01:00 04/23/23 00:00 95.7 F L 76 12 129/58 L 99 04/22/23 23:00 04/22/23 22:30 94.9 F L 04/22/23 22:00 94.6 F L 74 15 105/55 L 95 04/22/23 22:00 04/22/23 20:00 74 20 94 L 04/22/23 21:00 04/22/23 21:15 94.5 F L 88 20 121/61 121/61 94 L 04/22/23 20:00 84 04/22/23 16:00 96 04/22/23 18:23 04/22/23 18:00 71 16 88/47 L 94 L 04/22/23 16:00 80 04/22/23 12:00 80 04/22/23 17:00 04/22/23 16:00 79 16 100/49 L 97 04/22/23 15:54 97.6 F 04/22/23 15:00 04/22/23 15:00 77 16 112/58 L 99 04/22/23 14:00 71 14 88/42 L 96 04/22/23 13:00 04/22/23 12:00 77 14 99/55 L 96 04/22/23 11:00 04/22/23 11:54 97.9 F 04/22/23 10:41 79 04/22/23 10:00 74 14 102/60 L 95 O2 Del Method O2 Flow Rate FiO2 04/23/23 08:00 04/23/23 06:48 Nasal Cannula 3 04/23/23 06:00 Nasal Cannula 2 04/23/23 05:00 Nasal Cannula 2 04/23/23 04:00 04/23/23 04:00 Nasal Cannula 2 04/23/23 04:00 Nasal Cannula 2 04/23/23 03:00 Nasal Cannula 2 04/23/23 00:00 04/23/23 02:00 Nasal Cannula 2 04/23/23 01:00 Nasal Cannula 2 04/23/23 00:00 Nasal Cannula 2 04/22/23 23:00 Nasal Cannula 2 04/22/23 22:30 04/22/23 22:00 Nasal Cannula 2 04/22/23 22:00 Nasal Cannula 2 28 04/22/23 20:00 Nasal Cannula 2 04/22/23 21:00 Nasal Cannula 2 04/22/23 21:15 Nasal Cannula 2 04/22/23 20:00 04/22/23 16:00 Nasal Cannula 2 04/22/23 18:23 Nasal Cannula 2 04/22/23 18:00 Nasal Cannula 2 04/22/23 16:00 04/22/23 12:00 04/22/23 17:00 Nasal Cannula 2 04/22/23 16:00 Nasal Cannula 2 04/22/23 15:54 04/22/23 15:00 Nasal Cannula 2 04/22/23 15:00 Nasal Cannula 2 04/22/23 14:00 Nasal Cannula 2 04/22/23 13:00 Nasal Cannula 2 04/22/23 12:00 Nasal Cannula 2 04/22/23 11:00 Nasal Cannula 2 04/22/23 11:54 04/22/23 10:41 04/22/23 10:00 Nasal Cannula 2 Intake and Output 04/22/23 04/23/23 04/23/23 23:59 07:59 15:59 Intake Total 363 / 1467 185 / 185 Output Total 1850 / 2350 600 / 600 0 / 600 Balance -1487 / -883 -415 / -415 0 / -415 Intake: Intake, Oral Amount 0 / 0 0 / 0 Intake, Tube Feeding Amount 114 / 114 Intake, Tube Irrigant Amount 60 / 60 90 / 90 Intake, Other Amount 10 / 10 Intake, Total IV Amount 179 / 179 95 / 95 Cefepime HCl 1 gm In 0.9 % 50 / 50 Sodium Chloride 50 ml @ 100 mls /hr IV Q12H [facility]ENT Rx#:[id number] Heparin Sodium,Porcine/D5w 500 179 / 179 45 / 45 ml @ 550 UNITS/HR 11 mls/hr IV .Q25H TRENT Rx#:[id number] Output: Output, Urine Amount 0 / 0 0 / 0 Output, Urine Amount (Catheter) 18490 600 / 600 Huang 185 / 0 600 / 600 Output, Gastric Drainage Amount 0 / 0 Right Nare 0 / 0 Other: Intake, Other Source Saline Solution Number of Unmeasured Voids
--- NOTE | 2023-04-23 10:59 | DIET.NUTRFU ---
Addendum entered by Debbie Boswell RD, LD 04/23/23 11:05: She is noted to have edema to her arm. She is also noted to have C-diff, BM x2 04/21. Urine out 2350ml yesterday. Received NaCl 1000ml, yesterday. Family is coming in today to review goals of care and next step. provider spoke to daughter yesterday about possibly transferring for heart needs or keeping her comfortable and transferring to NH when ready. Will continue to monitor TF tolerance and labs Original Note: Reviewed in rounds, labs: Na 147H, BUN 63, Cr 2.10. Based on calculations she is deficit 1.9L. Provider discontinue IVF will replace in TF flush. TF is at 30ml/hr with goal rate of 65ml/hr. To replace water add additional 160ml Q4H with additional 960ml/24hr. total qtmfe=1235pr/day along with formula water at 580ml. Will review labs labs tomorrow. Also receiving lasix, which can cause fluid loss
--- NOTE | 2023-04-23 11:33 | EXP.CARD.PN ---
Subjective Subjective Date: 04/23/23 Time: 08:30 Principal diagnosis: sepsis, afib rvr Interval history: Patient remained stable. Morning labs reviewed. Exam Data for Last 24 hours Vital signs and Labs for Last 24 Hours: Temp Pulse Resp BP Pulse Ox O2 Del Method O2 Flow Rate 97.9 F 76 16 121/60 94 L Nasal Cannula 3 04/23/23 08:00 04/23/23 11:13 04/23/23 06:00 04/23/23 06:00 04/23/23 06:00 04/23/23 06:48 04/23/23 06:48 FiO2 28 04/22/23 22:00 Laboratory Results - last 24 hr 04/20/23 23:59: Stl Aeromonas (PCR) Not detected, Stl C. cayetanensis PCR Not detected, Stool Rotavirus (PCR) Not detected, Stl Adenov F 40/41 PCR Not detected, Stool Astrovirus (PCR) Not detected, Stool Campylobacter PCR Not detected, Stl C.difficile Tox PCR Detected A, Stool Cryptosporidium PCR Not detected, Stl E.coli Shiga Tox PCR Not detected, Stool E coli O157 PCR TNP, Stl Enterotoxigenic E PCR Not detected, Stool EPEC (PCR) Detected A, Stool EAEC (PCR) Not detected, Stl E. histolytica PCR Not detected, Stool Giardia Lamblia PCR Not detected, Stool Salmonella PCR Not detected, Stool Sapovirus (PCR) Not detected, Stl P. shigelloides PCR Not detected, Stl Shigella/EIEC PCR Not detected, St Y.enterocolitica PCR Not detected, Stool Vibrio (PCR) Not detected, Stl Vibrio cholerae PCR Not detected, Stl Norovirus GI/GII PCR Not detected 04/22/23 09:20: Vitamin B12 907, Folate 6.25 04/22/23 13:54: APTT 63.8 H* 04/22/23 17:58: POC Glucose 101 04/22/23 23:29: POC Glucose 115 H 04/23/23 05:55: POC Glucose 101 04/23/23 06:02: WBC 3.7 L, RBC 3.48 L, Hgb 8.6 L, Hct 28.3 L, MCV 81.6, MCH 24.7 L, MCHC 30.3 L, RDW 15.9, Plt Count 87 L, MPV 10.7 H, Neut % (Auto) 77.2, Lymph % (Auto) 11.3, [place] % (Auto) 7.4, Eos % (Auto) 3.9, Baso % (Auto) 0.2, Neut # (Auto) 2.8, Lymph # (Auto) 0.4 L, [place] # (Auto) 0.3, Eos # (Auto) 0.1, Baso # (Auto) 0.0, Sodium 147 H, Potassium 3.9, Chloride 115 H, Carbon Dioxide 28, Anion Gap 7.9, BUN 63 H, Creatinine 2.10 H, Estimated Creat Clear 23, Estimated GFR 22 L, Est GFR ( Amer) 27 L, Glucose 105 H, Calcium 7.1 L, Phosphorus 4.2 D, Magnesium 1.8, Total Bilirubin 0.6, AST 40 H, ALT 23, Alkaline Phosphatase 41, Total Protein 5.2 L, Albumin 2.5 L D, Globulin 2.7, Albumin/Globulin Ratio 0.9 L 04/23/23 07:40: APTT 80.3 H* I & O for Last 24 hours: Intake & Output 04/20/23 04/21/23 04/22/23 04/23/23 23:59 23:59 23:59 23:59 Intake Total 3630 / 3630 1965.203 / 2241.203 1467 / 1467 185 / 185 Output Total 300 / 500 605 / 655 2350 / 2350 600 / 600 Balance 3330 / 3130 1360.203 / 1586.203 -883 / -883 -415 / -415 Weight 170 lb 8 oz 170 lb 6.677 oz 170 lb 6.677 oz 170 lb 7 oz Microbiology Reports for the Last 24 Hours: Microbiology 04/20/23 18:25 Blood Blood Culture - Preliminary Constitutional Constitutional: no acute distress *Routine Respiratory Exam Respiratory: Present symmetric chest movement *Routine Cardiovascular Exam Cardiovascular: Present RRR, Normal S1 and Normal S2 *Routine Abdominal Exam Abdominal: Present soft and normoactive bowel sounds; Absent tenderness *Routine Extremities Exam Extremities: Present full ROM and normal capillary refill; Absent edema *Routine Skin Exam Skin: Present intact, dry and warm Detailed Neck Exam: Thyroids Thyroid: Absent bruit Progress Note: A&P Assessment and plan (1) Pneumonia: Status: Acute (2) Acute respiratory failure with hypoxia: Status: Acute (3) Shock: Status: Acute Assessment and Plan Assessment and Plan for All Diagnoses:: A-fib with RVR -Remains in A-fib rate on digoxin 0.125 mg. -Primary service had DC hep drip due to thrombocytopenia. Severe aortic stenosis Moderate to severe TR Moderate MR Preserved ejection fraction -Echo 04/21/2023: Preliminary report shows an estimated EF of 50 to 55%. Moderate to severe TR, severe aortic stenosis, moderate MR. Biatrial dilation. RVSP 55+. Official read is pending -Give Lasix 40 mg IV
--- NOTE | 2023-04-23 11:58 | PC.NURSE ---
Huang catheter continued due to excoriation to lexus area
--- NOTE | 2023-04-23 14:14 | PC.NURSE ---
1240 tube feed rate increased to 40ml/hr. 0 residual noted. flush increased to 310 ml/hr per organisational psychologist recommendations.
--- NOTE | 2023-04-23 16:20 | PC.NURSE ---
Addendum entered by Dafne Diaz RN 04/23/23 18:40: tube feed rate increased to 50ml/hr 1830 Original Note: 1240 tube feed rate increased to 40ml/hr. 0 residual noted. flush increased to 310 ml 4hr per cross tie turner recommendations.
--- NOTE | 2023-04-23 16:30 | P.EN_ITS ---
Advance care planning note: Active diagnosis: Sepsis, encephalopathy, severe aortic stenosis, anemia, lice infestation, GORGE, protein calorie malnutrition. The patient's active diagnoses are of sufficient risk that focused discussion on advanced care planning is indicated in order to allow the patient to thoughtfully consider personal goals of care; and, if situations arise that prevent the ability to personally give input, to ensure appropriate representation of their personal desires through documentation or informed surrogate decision makers. Discussion: Persons present and participating in discussion: Daughter Pauly and son Thompson along with social work Discussion: Extensive discussion about patient's current condition. Explained her current presentation and response to current therapy. Discussed potential improvements and placement option pending patient improvement. Discussed the patient would likely discharge to care home if she improves. Concerned that if she does not improve, we will need to make decisions about both feeding tube and hospice. Both the siblings are in agreement on CODE STATUS for patient. They disagree however at this time on potential for feeding tube. Discussion was civil and focused on mother's condition. Time spent: Total time spent [id number] in education and discussion directly related to advance care plannin minutes George Ann, discussion from 4:30 to 5:05 PM on 04/23/2023.
--- NOTE | 2023-04-23 16:48 | PC.NURSE ---
laceration to back of pt head was packed with 4x4 soaked in ns
--- NOTE | 2023-04-23 16:48 | PC.NURSE ---
1420 laceration to back of pt head was irrigated with 20 ml of ns then packed with 4x4 soaked in sodium chloride. abd pad used to hold packing in place. and wrapped in jose luis wrap. Martha Gama RN assisted in dressing application.
[2023-04-23 18:27] LABS: Anion Gap 7.7 mEq/L (5-15); Blood Urea Nitrogen 57 mg/dl (7-17); Calcium 7.1 mg/dl (8.4-10.2); Carbon Dioxide 31 mmol/L (22.0-30.0); Chloride 111 mmol/L (98-107); Creatinine Clearance Estimated 22 mL/min (50-200); Estimated Glomerular Filt Rate 21 ml/min (>60); GFR (African American) 26 ML/MIN (>60); Glucose 104 mg/dl (74-100); Potassium 3.7 mmoL/L (3.5-5.1); Sodium 146 mmol/L (136-145)
[2023-04-24] VITALS (15 sets, daily range): BP systolic 104–163; BP diastolic 41–72; PULSE 56–95; RESP 12–16; TEMP 36.4–37.2; O2SAT 92–99; BMI 25.4
--- NOTE | 2023-04-24 | PC.NURSE ---
Fingerstick obtained at 0000: 120 mg/dL. Glucometer docked, no result in chart.
--- NOTE | 2023-04-24 02:00 | PC.NURSE ---
Increased TF to 65 mL/hr (goal). Gastric residuals checked, 20 mL and returned. Pt tolerating at this time.
[2023-04-24 04:44] LABS: POC Glucose,Bedside 106 (70-110)
[2023-04-24 04:44] LABS: POC Glucose,Bedside 95 (70-110)
--- NOTE | 2023-04-24 06:04 | PC.NURSE ---
Shift Summary: Pt still only responsive to pain and noxious stimuli on exam, intermittently opens eyes spontaneously and moves LUE without purpose. VSS, able to tolerate 2 L NC. Attempted to transition pt to 1 L and RA, but SpO2 88-89%. NGT in place, Jevity @ 65 mL/hr (goal) with minimal residuals. x1 moderate liquid BM. Fingersticks Q6 WNL, no interventions needed. Skin assessments unchanged, head laceration dressing C/D/I. Huang in place. Partial bath given, linens changed. Call light and suction within reach, fall precautions implemented. No acute events or issues overnight.
[2023-04-24 06:48] LABS: POC Glucose,Bedside 127 (70-110)
[2023-04-24 06:48] LABS: POC Glucose,Bedside 120 (70-110)
[2023-04-24 06:49] LABS: Basophils % 0.2 % (0.1-2.0); Eosinophils # 0.2 K/mm3 (0.0-0.4); Hematocrit 28.8 % (37.0-47.0); Hemoglobin 8.9 g/dL (12.2-16.2); Lymphocytes # 0.6 K/mm3 (0.7-4.5); Lymphocytes % 15.3 % (10-50); Mean Corpuscular HGB Conc 31.1 g/dL (31.8-35.4); Mean Corpuscular Hemoglobin 25.7 pg (27.0-31.2); Mean Corpuscular Volume 82.6 fl (81-99); Mean Platelet Volume 10.8 fl (7.4-10.4); Monocytes # 0.3 K/mm3 (0.1-1.0); Monocytes % 7.5 % (1.7-9.3); Neutrophils # 2.7 K/mm3 (1.8-7.8); Neutrophils % 72.1 % (37.0-80.0); Platelet Count 70 K/mm3 (142-424); Red Blood Count 3.48 M/mm3 (4.20-5.40); Red Cell Distribution Width 15.7 % (11.5-17.5); White Blood Count 3.7 K/mm3 (4.8-10.8)
[2023-04-24 07:02] LABS: Chloride 111 mmol/L (98-107)
[2023-04-24 07:03] LABS: Potassium 3.7 mmoL/L (3.5-5.1); Sodium 149 mmol/L (136-145)
[2023-04-24 07:06] LABS: Alanine Aminotransferase 22 U/L (12-78); Albumin Level 2.4 g/dl (3.5-5.0); Albumin/Globulin Ratio 0.9 (1.1-1.8); Alkaline Phosphatase 45 U/L (38-126); Anion Gap 6.7 mEq/L (5-15); Aspartate Amino Transferase 28 U/L (14-36); Bilirubin,Total 0.4 mg/dl (0.2-1.3); Blood Urea Nitrogen 57 mg/dl (7-17); Calcium 7.2 mg/dl (8.4-10.2); Carbon Dioxide 35 mmol/L (22.0-30.0); Creatinine Clearance Estimated 19 mL/min (50-200); Estimated Glomerular Filt Rate 22 ml/min (>60); GFR (African American) 27 ML/MIN (>60); Globulin 2.6 g/dL (1.3-3.2); Glucose 111 mg/dl (74-100)
[2023-04-24 08:12] LABS: Magnesium 1.7 mg/dl (1.6-2.3); Phosphorous 3.1 mg/dl (2.5-4.5)
--- NOTE | 2023-04-24 10:04 | EXP.PULM.PN ---
Subjective *Date: 04/24/23 *Time: 14:22 Interval history: Slight improvement in her mentation, no acute respiratory vents overnight. Pulmonology Exam Inpatient Vital signs and Labs for Last 24 Hours: Temp Pulse Resp BP Pulse Ox O2 Del Method O2 Flow Rate 97.9 F 85 12 126/43 L 99 Nasal Cannula 2 04/24/23 08:00 04/24/23 08:27 04/24/23 06:00 04/24/23 06:00 04/24/23 06:00 04/24/23 06:31 04/24/23 06:31 FiO2 28 04/22/23 22:00 Laboratory Results - last 24 hr 04/23/23 11:19: POC Glucose 95 04/23/23 17:21: POC Glucose 106 04/23/23 17:50: Sodium 146 H, Potassium 3.7, Chloride 111 H, Carbon Dioxide 31 H, Anion Gap 7.7, BUN 57 H, Creatinine 2.20 H, Estimated Creat Clear 22, Estimated GFR 21 L, Est GFR ( Amer) 26 L, Glucose 104 H, Calcium 7.1 L 04/23/23 23:40: POC Glucose 120 H 04/24/23 06:02: POC Glucose 127 H 04/24/23 06:15: WBC 3.7 L, RBC 3.48 L, Hgb 8.9 L, Hct 28.8 L, MCV 82.6, MCH 25.7 L, MCHC 31.1 L, RDW 15.7, Plt Count 70 L, MPV 10.8 H, Neut % (Auto) 72.1, Lymph % (Auto) 15.3, [place] % (Auto) 7.5, Eos % (Auto) 5.0, Baso % (Auto) 0.2, Neut # (Auto) 2.7, Lymph # (Auto) 0.6 L, [place] # (Auto) 0.3, Eos # (Auto) 0.2, Baso # (Auto) 0.0, Sodium 149 H, Potassium 3.7, Chloride 111 H, Carbon Dioxide 35 H, Anion Gap 6.7, BUN 57 H, Creatinine 2.10 H, Estimated Creat Clear 19, Estimated GFR 22 L, Est GFR ( Amer) 27 L, Glucose 111 H, Calcium 7.2 L, Phosphorus 3.1 D, Magnesium 1.7, Total Bilirubin 0.4, AST 28 D, ALT 22, Alkaline Phosphatase 45, Total Protein 5.0 L, Albumin 2.4 L, Globulin 2.6, Albumin/Globulin Ratio 0.9 L I & O for Labs for Last 24 Hours: Intake & Output 04/21/23 04/22/23 04/23/23 04/24/23 23:59 23:59 23:59 23:59 Intake Total 1965.203 / 2241.203 1467 / 1467 1231 / 1424 748 / 748 Output Total 605 / 655 2350 / 2350 3950 / 4350 900 / 900 Balance 1360.203 / 1586.203 -883 / -883 -2719 / -2926 -152 / -152 Weight 170 lb 6.677 oz 170 lb 6.677 oz 170 lb 7 oz 143 lb 15.39 oz Microbiology Reports for the Last 24 Hours: Microbiology 04/20/23 16:23 Blood Blood Culture - Preliminary 04/20/23 18:25 Blood Blood Culture - Preliminary Constitutional: Present severe distress Head: Present normocephalic and laceration; Absent atraumatic Comment:: Laceration/gaping wound in her occipital area Neck: Present normal inspection and full ROM Respiratory: Present respiratory distress, rhonchi and diminished air movement; Absent able to speak in complete sentences Cardiac: Present S1/S2, Tachycardia and radial pulses present GI: Present soft and distention; Absent tenderness or guarding Rectal (female): Present deferred (female): Present deferred Skin: Present intact; Absent cyanosis or jaundice Neuro: Absent alert, awake or oriented x 3 Extremities: Present normal inspection and edema; Absent clubbing or cyanosis Assessment and Plan *Assessment and plan (1) Pneumonia: Status: Acute Qualifiers: Laterality: left Lung location: lower lobe of lung Pneumonia type: due to unspecified organism Qualified Code(s): J18.9 - Pneumonia, unspecified organism Category: Medical Code(s): J18.9 - Pneumonia, unspecified organism (2) Acute respiratory failure with hypoxia: Status: Acute Category: Medical Code(s): J96.01 - Acute respiratory failure with hypoxia (3) Shock: Status: Acute Category: Medical Code(s): R57.9 - Shock, unspecified Plan Ms. Montilla is a 87-year-old female was brought to the hospital status post found down and altered mental status. Patient barely responds to verbal stimuli. Grimacing to pain. Chest x-ray no significant dense consolidation. Left pleural effusion//atelectasis. GORGE and hyponatremia noted. Hemoglobin of 6.4 dropped from 8.2 on admission. Received fluids History of COVID-19 pneumonia and PE on 03/26/2021 with a plan to continue anticoagulation for 3 months at that time. Echo from 04/07/2021 normal EF. Lower extrem
--- NOTE | 2023-04-24 11:11 | EXP.CARD.PN ---
Subjective Subjective Date: 04/24/23 Time: 08:30 Principal diagnosis: sepsis, afib rvr Interval history: Patient remains stable, morning labs reviewed. Adequate urine output noted. Grimaces to painful stemuli. Exam Data for Last 24 hours Vital signs and Labs for Last 24 Hours: Temp Pulse Resp BP Pulse Ox O2 Del Method O2 Flow Rate 97.9 F 82 16 163/49 H 95 Nasal Cannula 2 04/24/23 08:00 04/24/23 10:00 04/24/23 10:00 04/24/23 10:00 04/24/23 10:00 04/24/23 10:00 04/24/23 10:00 FiO2 28 04/22/23 22:00 Laboratory Results - last 24 hr 04/23/23 11:19: POC Glucose 95 04/23/23 17:21: POC Glucose 106 04/23/23 17:50: Sodium 146 H, Potassium 3.7, Chloride 111 H, Carbon Dioxide 31 H, Anion Gap 7.7, BUN 57 H, Creatinine 2.20 H, Estimated Creat Clear 22, Estimated GFR 21 L, Est GFR ( Amer) 26 L, Glucose 104 H, Calcium 7.1 L 04/23/23 23:40: POC Glucose 120 H 04/24/23 06:02: POC Glucose 127 H 04/24/23 06:15: WBC 3.7 L, RBC 3.48 L, Hgb 8.9 L, Hct 28.8 L, MCV 82.6, MCH 25.7 L, MCHC 31.1 L, RDW 15.7, Plt Count 70 L, MPV 10.8 H, Neut % (Auto) 72.1, Lymph % (Auto) 15.3, [place] % (Auto) 7.5, Eos % (Auto) 5.0, Baso % (Auto) 0.2, Neut # (Auto) 2.7, Lymph # (Auto) 0.6 L, [place] # (Auto) 0.3, Eos # (Auto) 0.2, Baso # (Auto) 0.0, Sodium 149 H, Potassium 3.7, Chloride 111 H, Carbon Dioxide 35 H, Anion Gap 6.7, BUN 57 H, Creatinine 2.10 H, Estimated Creat Clear 19, Estimated GFR 22 L, Est GFR ( Amer) 27 L, Glucose 111 H, Calcium 7.2 L, Phosphorus 3.1 D, Magnesium 1.7, Total Bilirubin 0.4, AST 28 D, ALT 22, Alkaline Phosphatase 45, Total Protein 5.0 L, Albumin 2.4 L, Globulin 2.6, Albumin/Globulin Ratio 0.9 L I & O for Last 24 hours: Intake & Output 04/21/23 04/22/23 04/23/23 04/24/23 23:59 23:59 23:59 23:59 Intake Total 1965.203 / 2241.203 1467 / 1467 1231 / 1424 748 / 748 Output Total 605 / 655 2350 / 2350 3950 / 4350 900 / 900 Balance 1360.203 / 1586.203 -883 / -883 -2719 / -2926 -152 / -152 Weight 170 lb 6.677 oz 170 lb 6.677 oz 170 lb 7 oz 143 lb 15.39 oz Microbiology Reports for the Last 24 Hours: Microbiology 04/20/23 16:30 Urine,Clean Catch Urine Culture - Preliminary 04/20/23 18:25 Blood Blood Culture - Final 04/20/23 16:23 Blood Blood Culture - Preliminary Constitutional Constitutional: no acute distress *Routine Respiratory Exam Respiratory: Present rhonchi and symmetric chest movement *Routine Cardiovascular Exam Cardiovascular: Present RRR, Normal S1 and Normal S2 *Routine Abdominal Exam Abdominal: Present soft and normoactive bowel sounds; Absent tenderness *Routine Extremities Exam Extremities: Present full ROM and normal capillary refill; Absent edema *Routine Skin Exam Skin: Present intact, dry and warm Detailed Neck Exam: Thyroids Thyroid: Absent bruit Progress Note: A&P Assessment and plan (1) Pneumonia: Status: Acute (2) Acute respiratory failure with hypoxia: Status: Acute (3) Shock: Status: Acute Assessment and Plan Assessment and Plan for All Diagnoses:: A-fib with RVR -Remains in A-fib rate on digoxin 0.125 mg. -Primary service had DC hep drip due to thrombocytopenia. Severe aortic stenosis Moderate to severe TR Moderate MR Preserved ejection fraction -Echo 04/21/2023: Preliminary report shows an estimated EF of 50 to 55%. Moderate to severe TR, severe aortic stenosis, moderate MR. Biatrial dilation. RVSP 55+. Official read is pending -Continue Lasix 40 mg IV daily. Acute myocardial injury -In the setting of acute sepsis -Troponin 0.1-0.13 -Initial EKG shows A-fib with RVR rate 119, ST deviation and moderate T wave abnormality consider lateral ischemia Patient will need ischemic evaluation on outpatient basis Acute encephalopathy Severe sepsis Community-acquired pneumonia Acute UTI -First day of admission patient required Levophed. Patient has been off all pressors since last night. -Defer to primary service Acute kidney in
--- NOTE | 2023-04-24 11:16 | DIET.NUTRFU ---
Reviewed patient in rounds, he sodium level is 149H, it had gone down to 146 yesterday afternoon. The free water flush were increase yesterday at 4:20, should of receiving 930ml of free water. Today she should be receiving 1860 in flush and TF is at goal rate providing 1258ml formula in water, grand total of 3118ml fluid today. Lasix was also discontinued and aldcatone started to help. Cr improved slightly over night at 2.20 to 2.10. Provider also added on phosophate and potassium intake medication regimen secondary to labs. Provider indicated she was more alert today. Family also came in yesterday and reviewed POC goals, son wants TF tube and daughter does note. will continue current regimen
--- NOTE | 2023-04-24 11:30 | PC.NURSE ---
1100 pt had 2nd treatment for lice on head and eyebrows. dry 2x2 placed in wound on back of head during treatment. following treatment wound bed was irrigated with NS. vaseline gauze placed in wound and covered with dry 4x4. head wrapped in jose luis wrap.
--- NOTE | 2023-04-24 11:35 | PC.NURSE ---
1130 new tube feed with free water bag hung. TF rate 65ml/hr with 310ml of free water every 4 hours.
[2023-04-24 12:38] LABS: POC Glucose,Bedside 98 (70-110)
--- NOTE | 2023-04-24 13:59 | PC.NURSE ---
notified Felecia Encarnacion in pharmacy that pt vanc trough was elevated. when lab was drawn by lab staff, vanc was currently infusing. [id number]
--- NOTE | 2023-04-24 14:39 | EXP.ACUTE.PN ---
Subjective *Date: 04/24/23 *Time: 14:39 Interval history: Patient open eyes spontaneously upon entering the room this morning. Opens eyes to voice. Made unintelligible sounds on exam. Groans with movement. Vitals within normal range with blood pressure improved to systolics of 126/44 this morning on rounds. On 2 L nasal cannula oxygen. Having loose bowel movements. Afebrile, maintaining body temperature. Medical Exam Vital signs and Labs for Last 24 Hours: Vital Signs Temp Pulse Pulse Resp BP Pulse Ox O2 Del Method 04/24/23 14:00 84 16 135/64 96 Nasal Cannula 04/24/23 12:00 75 04/24/23 13:00 79 14 114/41 L 97 Nasal Cannula 04/24/23 13:00 Nasal Cannula 04/24/23 12:18 56 L 14 150/51 H 98 Nasal Cannula 04/24/23 08:00 95 H 04/24/23 11:32 Nasal Cannula 04/24/23 08:00 85 98 Nasal Cannula 04/24/23 09:00 Nasal Cannula 04/24/23 10:00 82 16 163/49 H 95 Nasal Cannula 04/24/23 08:00 85 16 126/44 L 98 Nasal Cannula 04/24/23 08:27 85 04/24/23 08:00 97.9 F 04/24/23 06:31 Nasal Cannula 04/24/23 06:00 76 12 126/43 L 99 Nasal Cannula 04/24/23 05:00 Nasal Cannula 04/24/23 04:00 80 04/24/23 00:00 80 04/24/23 04:00 97.9 F 90 12 133/42 L 96 Nasal Cannula 04/24/23 04:00 90 12 96 Nasal Cannula 04/24/23 03:00 Nasal Cannula 04/23/23 20:00 70 04/24/23 02:00 70 12 128/53 L 97 Nasal Cannula 04/24/23 01:00 Nasal Cannula 04/24/23 00:00 98.9 F 84 14 129/44 L 97 Nasal Cannula 04/23/23 23:00 Nasal Cannula 04/23/23 22:00 80 12 134/49 L 93 L Nasal Cannula 04/23/23 21:00 Nasal Cannula 04/23/23 20:00 99.6 F 70 12 124/52 L 96 Nasal Cannula 04/23/23 20:00 70 12 96 Nasal Cannula 04/23/23 18:43 Room Air 04/23/23 16:00 70 04/23/23 18:00 85 16 149/52 H 92 L Room Air 04/23/23 17:00 Room Air 04/23/23 15:00 Room Air 04/23/23 16:00 73 93 L Room Air 04/23/23 15:55 97.8 F O2 Flow Rate 04/24/23 14:00 2 04/24/23 12:00 04/24/23 13:00 2 04/24/23 13:00 2 04/24/23 12:18 2 04/24/23 08:00 04/24/23 11:32 2 04/24/23 08:00 2 04/24/23 09:00 2 04/24/23 10:00 2 04/24/23 08:00 2 04/24/23 08:27 04/24/23 08:00 04/24/23 06:31 2 04/24/23 06:00 2 04/24/23 05:00 2 04/24/23 04:00 04/24/23 00:00 04/24/23 04:00 2 04/24/23 04:00 2 04/24/23 03:00 2 04/23/23 20:00 04/24/23 02:00 2 04/24/23 01:00 2 04/24/23 00:00 2 04/23/23 23:00 2 04/23/23 22:00 2 04/23/23 21:00 2 04/23/23 20:00 2 04/23/23 20:00 2 04/23/23 18:43 04/23/23 16:00 04/23/23 18:00 04/23/23 17:00 04/23/23 15:00 04/23/23 16:00 04/23/23 15:55 Intake and Output 04/23/23 04/24/23 04/24/23 23:59 07:59 15:59 Intake Total 890 / 1424 748 / 2254 1506 / 2254 Output Total 1600 / 4350 900 / 1900 1000 / 1900 Balance -710 / -2926 -152 / 354 506 / 354 Intake: Intake, Oral Amount 0 / 0 0 / 0 Intake, Tube Feeding Amount 370 / 563 438 / 877 439 / 877 Intake, Tube Irrigant Amount 410 / 500 310 / 977 667 / 977 Intake, Other Amount 10 / 10 Intake, Total IV Amount 100 / 351 400 / 400 Meropenem 0.5 gm In 0.9 % 100 / 100 Sodium Chloride 100 ml @ 100 mls/hr IV Q12 [facility] Rx#:[id number] Meropenem 0.5 gm In 0.9 % 100 / 100 Sodium Chloride 100 ml @ 100 mls/hr IV Q12H [facility] Rx#:[id number] Vancomycin/Water For Inj (Peg) 300 / 300 1.5 gm In 300 ml @ 150 mls/hr IV ONCE ONE Rx#:[id number] Output: Output, Urine Amount 1200 / 2950 1000 / 1000 Output, Urine Amount (Catheter) 400 / 1400 900 / 900 Huang 400 / 1400 900 / 900 Output, Gastric Drainage Amount 0 / 0 0 / 0 Right Nare 0 / 0 0 / 0 Other: Intake, Other Source Saline Solution Number of Unmeasured Voids 0 0 Number of Bowel Movements 1 1 Weight 65
[2023-04-24 17:59] LABS: POC Glucose,Bedside 128 (70-110)
[2023-04-24 18:42] LABS: Chloride 107 mmol/L (98-107); Potassium 3.9 mmoL/L (3.5-5.1); Sodium 144 mmol/L (136-145)
[2023-04-24 18:45] LABS: Anion Gap 6.9 mEq/L (5-15); Blood Urea Nitrogen 57 mg/dl (7-17); Calcium 7.1 mg/dl (8.4-10.2); Carbon Dioxide 34 mmol/L (22.0-30.0); Creatinine Clearance Estimated 23 mL/min (50-200); Estimated Glomerular Filt Rate 27 ml/min (>60); GFR (African American) 32 ML/MIN (>60); Glucose 114 mg/dl (74-100)
[2023-04-24 23:47] LABS: POC Glucose,Bedside 131 (70-110)
[2023-04-25] VITALS (7 sets, daily range): BP systolic 109–134; BP diastolic 47–60; PULSE 77–105; RESP 8–18; TEMP 36.6–36.9; O2SAT 92–98; BMI 28.3
[2023-04-25 07:25] LABS: POC Glucose,Bedside 135 (70-110)
[2023-04-25 07:42] LABS: Chloride 104 mmol/L (98-107); Sodium 144 mmol/L (136-145)
[2023-04-25 07:45] LABS: Alanine Aminotransferase 19 U/L (12-78); Albumin Level 2.5 g/dl (3.5-5.0); Albumin/Globulin Ratio 0.9 (1.1-1.8); Alkaline Phosphatase 49 U/L (38-126); Aspartate Amino Transferase 24 U/L (14-36); Bilirubin,Total 0.5 mg/dl (0.2-1.3); Blood Urea Nitrogen 53 mg/dl (7-17); Calcium 7.2 mg/dl (8.4-10.2); Carbon Dioxide 38 mmol/L (22.0-30.0); Creatinine Clearance Estimated 27 mL/min (50-200); Estimated Glomerular Filt Rate 28 ml/min (>60); GFR (African American) 34 ML/MIN (>60); Globulin 2.7 g/dL (1.3-3.2); Glucose 138 mg/dl (74-100); Magnesium 1.5 mg/dl (1.6-2.3); Phosphorous 2.7 mg/dl (2.5-4.5); Total Protein,Serum 5.2 g/dl (6.3-8.2)
[2023-04-25 08:04] LABS: Basophils % 0.1 % (0.1-2.0); Eosinophils # 0.3 K/mm3 (0.0-0.4); Eosinophils % 5.7 % (0.1-12.0); Hemoglobin 9.3 g/dL (12.2-16.2); Lymphocytes # 0.7 K/mm3 (0.7-4.5); Lymphocytes % 14.2 % (10-50); Mean Corpuscular HGB Conc 31.2 g/dL (31.8-35.4); Mean Corpuscular Volume 80.1 fl (81-99); Mean Platelet Volume 11.8 fl (7.4-10.4); Monocytes # 0.4 K/mm3 (0.1-1.0); Monocytes % 9.6 % (1.7-9.3); Neutrophils # 3.2 K/mm3 (1.8-7.8); Neutrophils % 70.3 % (37.0-80.0); Platelet Count 74 K/mm3 (142-424); Red Blood Count 3.74 M/mm3 (4.20-5.40); Red Cell Distribution Width 16.9 % (11.5-17.5); White Blood Count 4.5 K/mm3 (4.8-10.8)
--- NOTE | 2023-04-25 08:37 | EXP.PHA.PN ---
Subjective *Date: 04/25/23 *Time: 08:37 Medical Exam Vital signs and Labs for Last 24 Hours: Vital Signs Temp Pulse Pulse Resp BP BP Pulse Ox 04/25/23 08:00 98.3 F 93 H 18 114/52 L 92 L 04/25/23 07:00 04/25/23 04:00 80 04/25/23 04:00 98.5 F 100 H 15 122/49 L 93 L 04/25/23 05:00 04/25/23 04:00 90 96 04/25/23 03:00 04/25/23 00:00 80 04/25/23 01:00 04/25/23 00:00 98.1 F 80 16 126/47 L 93 L 04/24/23 23:00 04/24/23 22:00 92 H 14 132/72 94 L 04/24/23 21:00 04/24/23 20:00 80 04/24/23 20:00 98.9 F 82 12 104/59 L 92 L 04/24/23 20:00 82 12 92 L 04/24/23 18:48 04/24/23 16:00 76 96 04/24/23 18:00 76 16 125/45 L 97 04/24/23 17:00 04/24/23 15:00 04/24/23 16:00 80 04/24/23 16:00 97.5 F L 04/24/23 14:00 84 16 135/64 96 04/24/23 12:00 75 04/24/23 13:00 79 14 114/41 L 97 04/24/23 13:00 04/24/23 12:18 56 L 14 150/51 H 98 04/24/23 11:32 04/24/23 09:00 04/24/23 10:00 82 16 163/49 H 95 O2 Del Method O2 Flow Rate 04/25/23 08:00 Nasal Cannula 1 04/25/23 07:00 Nasal Cannula 1 04/25/23 04:00 04/25/23 04:00 Nasal Cannula 1 04/25/23 05:00 Nasal Cannula 1 04/25/23 04:00 Nasal Cannula 1 04/25/23 03:00 Nasal Cannula 04/25/23 00:00 04/25/23 01:00 Nasal Cannula 1 04/25/23 00:00 Nasal Cannula 1 04/24/23 23:00 Nasal Cannula 1 04/24/23 22:00 Nasal Cannula 1 04/24/23 21:00 Nasal Cannula 1 04/24/23 20:00 04/24/23 20:00 Room Air 04/24/23 20:00 Room Air 04/24/23 18:48 Nasal Cannula 2 04/24/23 16:00 Nasal Cannula 2 04/24/23 18:00 Nasal Cannula 2 04/24/23 17:00 Nasal Cannula 2 04/24/23 15:00 Nasal Cannula 2 04/24/23 16:00 04/24/23 16:00 04/24/23 14:00 Nasal Cannula 2 04/24/23 12:00 04/24/23 13:00 Nasal Cannula 2 04/24/23 13:00 Nasal Cannula 2 04/24/23 12:18 Nasal Cannula 2 04/24/23 11:32 Nasal Cannula 2 04/24/23 09:00 Nasal Cannula 2 04/24/23 10:00 Nasal Cannula 2 Intake and Output 04/24/23 04/25/23 04/25/23 23:59 07:59 15:59 Intake Total 1083 / 3337 Output Total 3050 / 4950 600 / 600 Balance -1967 / -1613 -600 / -600 Intake: Intake, Oral Amount 0 / 0 Intake, Tube Feeding Amount 608 / 1485 Intake, Tube Irrigant Amount 365 / 1342 Intake, Other Amount 10 / 10 Intake, Total IV Amount 100 / 500 Meropenem 0.5 gm In 0.9 % 100 / 200 Sodium Chloride 100 ml @ 100 mls/hr IV Q12 [facility] Rx#:[id number] Output: Output, Urine Amount 2300 / 3300 600 / 600 Output, Urine Amount (Catheter) 750 / 1650 Huang 750 / 1650 Output, Gastric Drainage Amount 0 / 0 Right Nare 0 / 0 Other: Intake, Other Source Saline Solution Number of Unmeasured Voids 1 Number of Bowel Movements 1 Weight 72.575 kg Patient Weight 04/25/23 23:59 Weight 72.575 kg Laboratory Results - last 24 hr 04/24/23 12:25: POC Glucose 98 04/24/23 12:50: Vancomycin Trough 35.0 H 04/24/23 17:49: POC Glucose 128 H 04/24/23 18:10: Sodium 144, Potassium 3.9, Chloride 107, Carbon Dioxide 34 H, Anion Gap 6.9, BUN 57 H, Creatinine 1.80 H, Estimated Creat Clear 23, Estimated GFR 27 L, Est GFR ( Amer) 32 L, Glucose 114 H, Calcium 7.1 L 04/24/23 23:32: POC Glucose 131 H 04/25/23 07:15: WBC 4.5 L, RBC 3.74 L, Hgb 9.3 L, Hct 30.0 L, MCV 80.1 L, MCH 25.0 L, MCHC 31.2 L, RDW 16.9, Plt Count 74 L, MPV 11.8 H, Neut % (Auto) 70.3, Lymph % (Auto) 14.2, [place] % (Auto) 9.6 H, Eos % (Auto) 5.7, Baso % (Auto) 0.1, Neut # (Auto) 3.2, Lymph # (Auto) 0.7, [place] # (Auto) 0.4, Eos # (Auto) 0.3, Baso # (Auto) 0.0, Sodium 144, Potassium 4.0, Chloride 104, Carbon Dioxide 38 H, Anion Gap 6.0, BUN 53 H, Creatinine 1.70 H, Estimated Creat Clear 27, Estimated GFR 28 L, Est GFR ( Amer) 34 L, Glucose 138 H D, Calcium 7.2 L,
--- NOTE | 2023-04-25 09:43 | EXP.PULM.PN ---
Subjective *Date: 04/25/23 *Time: 12:28 Pulmonology Exam Inpatient Vital signs and Labs for Last 24 Hours: Temp Pulse Resp BP Pulse Ox O2 Del Method O2 Flow Rate 98.3 F 103 H 18 114/52 L 92 L Nasal Cannula 1 04/25/23 08:00 04/25/23 08:39 04/25/23 08:00 04/25/23 08:00 04/25/23 08:00 04/25/23 08:00 04/25/23 08:00 FiO2 28 04/22/23 22:00 Laboratory Results - last 24 hr 04/24/23 12:25: POC Glucose 98 04/24/23 12:50: Vancomycin Trough 35.0 H 04/24/23 17:49: POC Glucose 128 H 04/24/23 18:10: Sodium 144, Potassium 3.9, Chloride 107, Carbon Dioxide 34 H, Anion Gap 6.9, BUN 57 H, Creatinine 1.80 H, Estimated Creat Clear 23, Estimated GFR 27 L, Est GFR ( Amer) 32 L, Glucose 114 H, Calcium 7.1 L 04/24/23 23:32: POC Glucose 131 H 04/25/23 07:15: WBC 4.5 L, RBC 3.74 L, Hgb 9.3 L, Hct 30.0 L, MCV 80.1 L, MCH 25.0 L, MCHC 31.2 L, RDW 16.9, Plt Count 74 L, MPV 11.8 H, Neut % (Auto) 70.3, Lymph % (Auto) 14.2, [place] % (Auto) 9.6 H, Eos % (Auto) 5.7, Baso % (Auto) 0.1, Neut # (Auto) 3.2, Lymph # (Auto) 0.7, [place] # (Auto) 0.4, Eos # (Auto) 0.3, Baso # (Auto) 0.0, Sodium 144, Potassium 4.0, Chloride 104, Carbon Dioxide 38 H, Anion Gap 6.0, BUN 53 H, Creatinine 1.70 H, Estimated Creat Clear 27, Estimated GFR 28 L, Est GFR ( Amer) 34 L, Glucose 138 H D, Calcium 7.2 L, Phosphorus 2.7, Magnesium 1.5 L D, Total Bilirubin 0.5, AST 24, ALT 19, Alkaline Phosphatase 49, Total Protein 5.2 L, Albumin 2.5 L, Globulin 2.7, Albumin/Globulin Ratio 0.9 L 04/25/23 07:18: POC Glucose 135 H I & O for Labs for Last 24 Hours: Intake & Output 04/22/23 04/23/23 04/24/23 04/25/23 23:59 23:59 23:59 23:59 Intake Total 1467 / 1467 1231 / 1424 3337 / 3337 Output Total 2350 / 2350 3950 / 4350 4950 / 4950 600 / 600 Balance -883 / -883 -2719 / -2926 -1613 / -1613 -600 / -600 Weight 170 lb 6.677 oz 170 lb 7 oz 143 lb 15.39 oz 160 lb Microbiology Reports for the Last 24 Hours: Microbiology 04/20/23 16:30 Urine,Clean Catch Urine Culture - Preliminary 04/20/23 18:25 Blood Blood Culture - Final Constitutional: Present severe distress Head: Present normocephalic and laceration; Absent atraumatic Comment:: Laceration/gaping wound in her occipital area Neck: Present normal inspection and full ROM Respiratory: Present respiratory distress, rhonchi and diminished air movement; Absent able to speak in complete sentences Cardiac: Present S1/S2, Tachycardia and radial pulses present GI: Present soft and distention; Absent tenderness or guarding Rectal (female): Present deferred (female): Present deferred Skin: Present intact; Absent cyanosis or jaundice Neuro: Absent alert, awake or oriented x 3 Extremities: Present normal inspection and edema; Absent clubbing or cyanosis Assessment and Plan *Assessment and plan (1) Pneumonia: Status: Acute Qualifiers: Laterality: left Lung location: lower lobe of lung Pneumonia type: due to unspecified organism Qualified Code(s): J18.9 - Pneumonia, unspecified organism Category: Medical Code(s): J18.9 - Pneumonia, unspecified organism (2) Acute respiratory failure with hypoxia: Status: Acute Category: Medical Code(s): J96.01 - Acute respiratory failure with hypoxia (3) Shock: Status: Acute Category: Medical Code(s): R57.9 - Shock, unspecified Plan Ms. Montilla is a 87-year-old female was brought to the hospital status post found down and altered mental status. Patient barely responds to verbal stimuli. Grimacing to pain. Chest x-ray no significant dense consolidation. Left pleural effusion//atelectasis. GORGE and hyponatremia noted. Hemoglobin of 6.4 dropped from 8.2 on admission. Received fluids History of COVID-19 pneumonia and PE on 03/26/2021 with a plan to continue anticoagulation for 3 months at that time. Echo from 04/07/2021 normal EF. Lower extremity venous Doppler negative. Status post units of transfusion hemoglobin jhonny
--- NOTE | 2023-04-25 12:03 | DIET.NUTRFU ---
Addendum entered by Debbie Boswell, RD, LD 04/25/23 12:10: fluid needs are high considering diuretic tx with good urine output and loose/multiple BM secondary to C-diff. Will adjust Flush to 275ml [id number] for total volume of 2900ml/day. Will continue to monitor labs. Original Note: Reviewed with provider during rounds. She is tolerating TF via NG tube at goal rate of 65ml/hr providing 1872kcal, 86.6gm protein and 1258ml formula water. Her flush was increased at 310ml [id number]/day with the formula water total is 3118ml/day due to elevated sodium. Current labs reviewed and Na is now 144, BUN and Cr improved slightly at 53/1.7. Blood sugar 98-135, no hx of DM. She was also started on folic acid, potassium phosphate, thiamine and zinc. She also continues HCTZ with urine output of 3300 yesterday and 7 BM noted with tx of C-diff in place. Wt is trending down with today's wt at 72kg secondary to fluid loss with diuretic tx since admitted. Provider is okay with decreasing flush slightly to prevent hyponatremia
[2023-04-25 12:57] LABS: POC Glucose,Bedside 122 (70-110)
--- NOTE | 2023-04-25 13:29 | EXP.ACUTE.PN ---
Subjective *Date: 04/25/23 *Time: 18:49 Interval history: Patient open eyes spontaneously upon entering the room this morning. Opens eyes to voice. Made unintelligible sounds on exam. Groans with movement. Vitals within normal range with blood pressure improved to systolics of 122/49 this morning on rounds. On 1 L nasal cannula oxygen. Having loose bowel movements. Afebrile, maintaining body temperature. Medical Exam Vital signs and Labs for Last 24 Hours: Vital Signs Temp Pulse Pulse Resp BP BP Pulse Ox 04/25/23 12:00 98.0 F 98 H 18 109/60 L 109/60 L 93 L 04/25/23 12:44 04/25/23 08:00 04/25/23 08:00 95 H 04/25/23 11:00 04/25/23 09:00 04/25/23 08:00 98.3 F 93 H 18 114/52 L 92 L 04/25/23 08:39 103 H 04/25/23 07:00 04/25/23 04:00 80 04/25/23 04:00 98.5 F 100 H 15 122/49 L 93 L 04/25/23 05:00 04/25/23 04:00 90 96 04/25/23 03:00 04/25/23 00:00 80 04/25/23 01:00 04/25/23 00:00 98.1 F 80 16 126/47 L 93 L 04/24/23 23:00 04/24/23 22:00 92 H 14 132/72 94 L 04/24/23 21:00 04/24/23 20:00 80 04/24/23 20:00 98.9 F 82 12 104/59 L 92 L 04/24/23 20:00 82 12 92 L 04/24/23 18:48 04/24/23 16:00 76 96 04/24/23 18:00 76 16 125/45 L 97 04/24/23 17:00 04/24/23 15:00 04/24/23 16:00 80 04/24/23 16:00 97.5 F L 04/24/23 14:00 84 16 135/64 96 O2 Del Method O2 Flow Rate 04/25/23 12:00 Room Air 04/25/23 12:44 Nasal Cannula 1 04/25/23 08:00 Nasal Cannula 1 04/25/23 08:00 04/25/23 11:00 Nasal Cannula 1 04/25/23 09:00 Nasal Cannula 1 04/25/23 08:00 Nasal Cannula 1 04/25/23 08:39 04/25/23 07:00 Nasal Cannula 1 04/25/23 04:00 04/25/23 04:00 Nasal Cannula 1 04/25/23 05:00 Nasal Cannula 1 04/25/23 04:00 Nasal Cannula 1 04/25/23 03:00 Nasal Cannula 04/25/23 00:00 04/25/23 01:00 Nasal Cannula 1 04/25/23 00:00 Nasal Cannula 1 04/24/23 23:00 Nasal Cannula 1 04/24/23 22:00 Nasal Cannula 1 04/24/23 21:00 Nasal Cannula 1 04/24/23 20:00 04/24/23 20:00 Room Air 04/24/23 20:00 Room Air 04/24/23 18:48 Nasal Cannula 2 04/24/23 16:00 Nasal Cannula 2 04/24/23 18:00 Nasal Cannula 2 04/24/23 17:00 Nasal Cannula 2 04/24/23 15:00 Nasal Cannula 2 04/24/23 16:00 04/24/23 16:00 04/24/23 14:00 Nasal Cannula 2 Intake and Output 04/24/23 04/25/23 04/25/23 23:59 07:59 15:59 Intake Total 1083 / 3337 Output Total 3050 / 4950 600 / 600 Balance -1967 / -1613 -600 / -600 Intake: Intake, Oral Amount 0 / 0 Intake, Tube Feeding Amount 608 / 1485 Intake, Tube Irrigant Amount 365 / 1342 Intake, Other Amount 10 / 10 Intake, Total IV Amount 100 / 500 Meropenem 0.5 gm In 0.9 % 100 / 200 Sodium Chloride 100 ml @ 100 mls/hr IV Q12 [facility] Rx#:[id number] Output: Output, Urine Amount 2300 / 3300 600 / 600 Output, Urine Amount (Catheter) 750 / 1650 Huang 750 / 1650 Output, Gastric Drainage Amount 0 / 0 Right Nare 0 / 0 Other: Intake, Other Source Saline Solution Number of Unmeasured Voids 1 Number of Bowel Movements 1 Weight 72.575 kg Patient Weight 04/25/23 23:59 Weight 72.575 kg Laboratory Results - last 24 hr 04/24/23 12:50: Vancomycin Trough 35.0 H 04/24/23 17:49: POC Glucose 128 H 04/24/23 18:10: Sodium 144, Potassium 3.9, Chloride 107, Carbon Dioxide 34 H, Anion Gap 6.9, BUN 57 H, Creatinine 1.80 H, Estimated Creat Clear 23, Estimated GFR 27 L, Est GFR ( Amer) 32 L, Glucose 114 H, Calcium 7.1 L 04/24/23 23:32: POC Glucose 131 H 04/25/23 07:15: WBC 4.5 L, RBC 3.74 L, Hgb 9.3 L, Hct 30.0 L, MCV 80.1 L, MCH 25.0 L, MCHC 31.2 L, RDW 16.9, Plt Count 74 L, MPV 11.8 H, Neut % (Auto) 70.3, Lymph % (Auto) 14.2, [place] % (Auto) 9.6 H, Eos % (Auto) 5.7, Baso % (Auto)
[2023-04-25 14:08] LABS: Vancomycin,Trough 24.2 ug/mL (5.0-10.0)
[2023-04-25 23:34] LABS: POC Glucose,Bedside 131 (70-110)
[2023-04-26] VITALS (18 sets, daily range): BP systolic 134–177; BP diastolic 54–102; PULSE 69–93; RESP 12–19; TEMP 36.3–36.7; O2SAT 77–97; BMI 28.5
--- NOTE | 2023-04-26 05:25 | PC.NURSE ---
Patient has rested well this shift. Turned and repositioned every two hours with assit of two, had one x-large watery bowel movement this shift. Patients GCS currently an 8, Patient has opened eyes to verbal stimulation, facial grimace noted with painful stimulation, patient has not attempted to speak this shift, no groans noted either, unable to follow commands. Limbs are flaccid with no attempts to hold positions against gravity, no attempts made to withdrawal from pain. Patient has excoriation to abdominal folds and buttock. NG tube remains in left nare 55@ nostril, Tube feeding still infusing with the Jevity 1.2 Donald at 65 ml/hr with 275ML water flushes every four hours. Lungs have fine crackles to left lung, right lung is clear and diminished, gurgling noise heard with inspirations. Oral care has been performed every two hours, scant amounts from suctioning. Dressing to laceration on scalp is clean, dry, and intact. 1LNC was removed from patient at 0430 due to oxygen saturations maintaining greater than 96%, currently patient is 92% on room air. Edema is noted to BUE and BLE. Patient remains to be in A-fib on monitors rate is controlled. Continue with POC and step down protocols.
[2023-04-26 08:05] LABS: Phosphorous 3.1 mg/dl (2.5-4.5)
[2023-04-26 08:13] LABS: Basophils % 0.3 % (0.1-2.0); Eosinophils # 0.3 K/mm3 (0.0-0.4); Eosinophils % 6.5 % (0.1-12.0); Hematocrit 36.5 % (37.0-47.0); Lymphocytes # 0.5 K/mm3 (0.7-4.5); Lymphocytes % 10.3 % (10-50); Mean Corpuscular HGB Conc 30.1 g/dL (31.8-35.4); Mean Corpuscular Volume 83.1 fl (81-99); Monocytes # 0.5 K/mm3 (0.1-1.0); Monocytes % 9.9 % (1.7-9.3); Neutrophils # 3.3 K/mm3 (1.8-7.8); Platelet Count 53 K/mm3 (142-424); Red Blood Count 4.39 M/mm3 (4.20-5.40); White Blood Count 4.6 K/mm3 (4.8-10.8)
[2023-04-26 10:29] LABS: Alanine Aminotransferase 17 U/L (12-78); Alkaline Phosphatase 51 U/L (38-126); Aspartate Amino Transferase 43 U/L (14-36); Bilirubin,Total 0.5 mg/dl (0.2-1.3); Blood Urea Nitrogen 47 mg/dl (7-17); Carbon Dioxide 35 mmol/L (22.0-30.0); Chloride 101 mmol/L (98-107); Creatinine Clearance Estimated 42 mL/min (50-200); Estimated Glomerular Filt Rate 47 ml/min (>60); GFR (African American) 57 ML/MIN (>60)
[2023-04-26 10:30] LABS: Glucose 127 mg/dl (74-100); Total Protein,Serum 5.4 g/dl (6.3-8.2)
[2023-04-26 10:31] LABS: Albumin Level 2.5 g/dl (3.5-5.0); Albumin/Globulin Ratio 0.9 (1.1-1.8); Anion Gap 5.4 mEq/L (5-15); Calcium 7.3 mg/dl (8.4-10.2); Globulin 2.9 g/dL (1.3-3.2); Potassium 4.4 mmoL/L (3.5-5.1); Sodium 137 mmol/L (136-145)
--- NOTE | 2023-04-26 10:39 | EXP.PHA.PN ---
Subjective *Date: 04/26/23 *Time: 10:39 Medical Exam Vital signs and Labs for Last 24 Hours: Vital Signs Temp Pulse Pulse Resp BP BP Pulse Ox 04/26/23 10:00 84 18 137/62 93 L 04/26/23 09:00 04/26/23 07:56 97.6 F 04/26/23 08:00 86 18 146/61 H 92 L 04/26/23 07:58 81 93 L 04/26/23 06:55 04/26/23 04:00 84 04/26/23 05:00 04/26/23 04:00 97.8 F 82 16 142/54 H 97 04/26/23 03:00 04/26/23 01:00 04/26/23 00:00 78 04/25/23 20:00 94 H 04/26/23 00:00 97.4 F L 84 18 143/56 H 96 04/25/23 23:00 04/25/23 20:00 95 04/25/23 21:00 04/25/23 20:00 97.8 F 77 16 121/60 98 04/25/23 20:00 80 04/25/23 16:00 100 H 04/25/23 12:00 80 04/25/23 16:00 98.3 F 04/25/23 16:00 105 H 8 L 134/60 93 L 04/25/23 18:58 04/25/23 17:00 04/25/23 15:00 04/25/23 12:00 98.0 F 98 H 18 109/60 L 109/60 L 93 L 04/25/23 12:44 04/25/23 11:00 O2 Del Method O2 Flow Rate 04/26/23 10:00 Room Air 04/26/23 09:00 Room Air 04/26/23 07:56 04/26/23 08:00 Room Air 04/26/23 07:58 Room Air 04/26/23 06:55 Room Air 04/26/23 04:00 04/26/23 05:00 Room Air 04/26/23 04:00 Nasal Cannula 1 04/26/23 03:00 Nasal Cannula 1 04/26/23 01:00 Nasal Cannula 1 04/26/23 00:00 04/25/23 20:00 04/26/23 00:00 Nasal Cannula 1 04/25/23 23:00 Nasal Cannula 1 04/25/23 20:00 1 04/25/23 21:00 Nasal Cannula 1 04/25/23 20:00 Nasal Cannula 1 04/25/23 20:00 04/25/23 16:00 04/25/23 12:00 04/25/23 16:00 04/25/23 16:00 Nasal Cannula 1 04/25/23 18:58 Nasal Cannula 1 04/25/23 17:00 Nasal Cannula 1 04/25/23 15:00 Nasal Cannula 1 04/25/23 12:00 Room Air 04/25/23 12:44 Nasal Cannula 1 04/25/23 11:00 Nasal Cannula 1 Intake and Output 04/25/23 04/26/23 04/26/23 23:59 07:59 15:59 Intake Total 2310 / 2310 1250 / 1250 Output Total 400 / 1400 550 / 550 0 / 550 Balance 1910 / 910 700 / 700 0 / 700 Intake: Intake, Tube Feeding Amount 1105 / 1105 1150 / 1150 Intake, Tube Irrigant Amount 1205 / 1205 Infusion Intake 100 / 100 Meropenem 0.5 gm In 0.9 % 100 / 100 Sodium Chloride 100 ml @ 100 mls/hr IV Q12 [facility] Rx#:[id number] Output: Output, Urine Amount 400 / 1400 0 / 0 0 / 0 Output, Urine Amount (Catheter) 550 / 550 Huang 550 / 550 Other: Number of Unmeasured Voids 0 0 0 Number of Bowel Movements 1 1 1 Weight 73.028 kg Patient Weight 04/26/23 23:59 Weight 73.028 kg Laboratory Results - last 24 hr 04/25/23 12:27: POC Glucose 122 H 04/25/23 13:15: Vancomycin Trough 24.2 H 04/25/23 18:26: POC Glucose 131 H 04/26/23 07:44: WBC 4.6 L, RBC 4.39, Hgb 11.0 L, Hct 36.5 L, MCV 83.1, MCH 25.0 L, MCHC 30.1 L, RDW 17.0, Plt Count 53 L D, MPV 10.0, Neut % (Auto) 73.0, Lymph % (Auto) 10.3, [place] % (Auto) 9.9 H, Eos % (Auto) 6.5, Baso % (Auto) 0.3, Neut # (Auto) 3.3, Lymph # (Auto) 0.5 L, [place] # (Auto) 0.5, Eos # (Auto) 0.3, Baso # (Auto) 0.0, Sodium 137, Potassium 4.4, Chloride 101, Carbon Dioxide 35 H, Anion Gap 5.4, BUN 47 H, Creatinine 1.10 H D, Estimated Creat Clear 42, Estimated GFR 47 L, Est GFR ( Amer) 57 L D, Glucose 127 H, Calcium 7.3 L, Phosphorus 3.1, Magnesium 2.0 D, Total Bilirubin 0.5, AST 43 H D, ALT 17, Alkaline Phosphatase 51, Total Protein 5.4 L, Albumin 2.5 L, Globulin 2.9, Albumin/Globulin Ratio 0.9 L I & O for Labs for Last 24 Hours: Intake & Output 04/23/23 04/24/23 04/25/23 04/26/23 23:59 23:59 23:59 23:59 Intake Total 1231 / 1424 3337 / 3337 2310 / 2310 1250 / 1250 Output Total 3950 / 4350 4950 / 4950 1400 / 1400 550 / 550 Balance -2719 / -2926 -1613 / -1613 910 / 910 700 / 700 Weight 77.309 kg 65.3 kg 72.575 kg 73.028 kg Microbiology Reports for the Last 24 Hours: Microbiology 04/20/23 16:30 Urine,Clean Catch Urine Culture -
[2023-04-26 12:21] LABS: POC Glucose,Bedside 123 (70-110)
--- NOTE | 2023-04-26 13:13 | PC.NURSE ---
1210 dressing to scalp changed at this time. wound bed irrigated with sodium chloride and vaseline gauze placed in wound (per wound therapy consult on 04/24). covered with gauze and taped in place.
--- NOTE | 2023-04-26 14:47 | PC.NURSE ---
vanc trough drawn by lab and in process at 1130. 1419 called lab to request ETA on results of vanc trough. 1437 lab released. 1445 called pharmacy and requested vanc dose for 1300 as lab was 15.0
--- NOTE | 2023-04-26 14:50 | PC.NURSE ---
1415 vitals have o2 sat noted to be 77% on room air. pleath on monitor noted to have good waveform. with pt desats no apnea is noted.
--- NOTE | 2023-04-26 15:01 | EXP.PHA.CONS ---
Pharmacy Consult Date: 04/26/23 Time: 15:01 Referring provider: DR. PARADA Reason for Consult:: VANCOMYCIN TROUGH LEVEL Allergies Allergy/AdvReac Type Severity Reaction Status Date / Time Penicillins [PENICILLINS] Allergy Mild Verified 02/16/20 13:50 Home Medications Medication Instructions Recorded Confirmed Type No Known Home Medications 04/21/23 04/21/23 History New Prescriptions to Start Prescriptions: Height: 1.6 m Weight: 73.028 kg Laboratory Results:: Laboratory Results - last 24 hr 04/25/23 18:26: POC Glucose 131 H 04/26/23 07:44: WBC 4.6 L, RBC 4.39, Hgb 11.0 L, Hct 36.5 L, MCV 83.1, MCH 25.0 L, MCHC 30.1 L, RDW 17.0, Plt Count 53 L D, MPV 10.0, Neut % (Auto) 73.0, Lymph % (Auto) 10.3, [place] % (Auto) 9.9 H, Eos % (Auto) 6.5, Baso % (Auto) 0.3, Neut # (Auto) 3.3, Lymph # (Auto) 0.5 L, [place] # (Auto) 0.5, Eos # (Auto) 0.3, Baso # (Auto) 0.0, Sodium 137, Potassium 4.4, Chloride 101, Carbon Dioxide 35 H, Anion Gap 5.4, BUN 47 H, Creatinine 1.10 H D, Estimated Creat Clear 42, Estimated GFR 47 L, Est GFR ( Amer) 57 L D, Glucose 127 H, Calcium 7.3 L, Phosphorus 3.1, Magnesium 2.0 D, Total Bilirubin 0.5, AST 43 H D, ALT 17, Alkaline Phosphatase 51, Total Protein 5.4 L, Albumin 2.5 L, Globulin 2.9, Albumin/Globulin Ratio 0.9 L 04/26/23 12:10: POC Glucose 123 H 04/26/23 12:20: Vancomycin Trough 15.0 H Medical History: Medical History (Updated 04/23/23 @ 09:57 by George Ann MD) Acute respiratory failure with hypoxia GORGE (acute kidney injury) Aortic heart murmur Aortic stenosis Chronic UTI (urinary tract infection) COVID-19 Fracture of radial neck, left, closed HTN (hypertension) Pneumonia Sepsis Shock Assessment and Plan Assessment and plan all Dx Assessment and Plan for all problems:: PATIENT'S VANCOMYCIN TORUGH LEVEL WAS 15.0 MCG/ML TODAY. RECOMMEND CONTINUING WITH VANCOMYCIN 1500 MG Q48H AT THIS TIME.
[2023-04-26 17:37] LABS: POC Glucose,Bedside 124 (70-110)
[2023-04-26 17:37] LABS: POC Glucose,Bedside 116 (70-110)
[2023-04-26 17:37] LABS: POC Glucose,Bedside 125 (70-110)
--- NOTE | 2023-04-26 18:44 | EXP.PN ---
Subjective *Date: 04/26/23 *Time: 18:44 Interval history: appears weak and frail, not holding conversations, no acute events overnight Exam Data for Last 24 hours Vital signs and Labs for Last 24 Hours: Temp Pulse Resp BP Pulse Ox O2 Del Method O2 Flow Rate 97.7 F 88 19 165/59 H 92 L Room Air 1 04/26/23 11:22 04/26/23 18:00 04/26/23 18:00 04/26/23 18:00 04/26/23 18:00 04/26/23 18:00 04/26/23 04:00 FiO2 28 04/22/23 22:00 Laboratory Results - last 24 hr 04/25/23 18:26: POC Glucose 131 H 04/25/23 23:49: POC Glucose 116 H 04/26/23 06:06: POC Glucose 125 H 04/26/23 07:44: WBC 4.6 L, RBC 4.39, Hgb 11.0 L, Hct 36.5 L, MCV 83.1, MCH 25.0 L, MCHC 30.1 L, RDW 17.0, Plt Count 53 L D, MPV 10.0, Neut % (Auto) 73.0, Lymph % (Auto) 10.3, [place] % (Auto) 9.9 H, Eos % (Auto) 6.5, Baso % (Auto) 0.3, Neut # (Auto) 3.3, Lymph # (Auto) 0.5 L, [place] # (Auto) 0.5, Eos # (Auto) 0.3, Baso # (Auto) 0.0, Sodium 137, Potassium 4.4, Chloride 101, Carbon Dioxide 35 H, Anion Gap 5.4, BUN 47 H, Creatinine 1.10 H D, Estimated Creat Clear 42, Estimated GFR 47 L, Est GFR ( Amer) 57 L D, Glucose 127 H, Calcium 7.3 L, Phosphorus 3.1, Magnesium 2.0 D, Total Bilirubin 0.5, AST 43 H D, ALT 17, Alkaline Phosphatase 51, Total Protein 5.4 L, Albumin 2.5 L, Globulin 2.9, Albumin/Globulin Ratio 0.9 L 04/26/23 12:10: POC Glucose 123 H 04/26/23 12:20: Vancomycin Trough 15.0 H 12/09/23 17:13: POC Glucose 124 H I & O for Last 24 hours: Intake & Output 04/23/23 04/24/23 04/25/23 04/26/23 23:59 23:59 23:59 23:59 Intake Total 1231 / 1424 3337 / 3337 2310 / 2310 3782 / 3782 Output Total 3950 / 4350 4950 / 4950 1400 / 1400 1425 / 1425 Balance -2719 / -2926 -1613 / -1613 910 / 910 2357 / 2357 Weight 77.309 kg 65.3 kg 72.575 kg 73.028 kg Constitutional Comments: Constitutional: Present mild distress, average body habitus, chronically ill appearing, disheveled and somnolent ENT: Present mucous membranes dry Comment:: 2 inch laceration posterior scalp noted, undermining of right side of laceration. No active bleeding. Neck: Present normal inspection Respiratory: Present rhonchi and normal respiratory effort; Absent wheezes Cardiac: Present Regular Rate and Systolic Murmur Comment:: Irregular rhythm GI: Present soft and normal bowel sounds; Absent distention or tenderness Rectal (female): Present deferred Extremities: Present full ROM; Absent tenderness Comment:: Stasis dermatitis lower extremities, improving edema in feet, wrinkling of skin, 1+ feet but trace in legs. Skin: Present intact and erythema Neuro: Absent Grossly Intact, alert, awake or moves all extremities Assessment and Plan *Assessment and plan (1) Encephalopathy acute: Status: Acute Category: Medical Code(s): G93.40 - Encephalopathy, unspecified (2) Sepsis: Status: Acute Qualifiers: Sepsis acute organ dysfunction status: with acute organ dysfunction Sepsis type: sepsis due to unspecified organism Severe sepsis acute organ dysfunction type: encephalopathy Severe sepsis shock status: without septic shock Qualified Code(s): A41.9 - Sepsis, unspecified organism; R65.20 - Severe sepsis without septic shock; G93.41 - Metabolic encephalopathy Category: Medical Code(s): A41.9 - Sepsis, unspecified organism (3) C. difficile colitis: Status: Acute Category: Medical Code(s): A04.72 - Enterocolitis due to Clostridium difficile, not specified as recurrent (4) CAP (community acquired pneumonia): Status: Acute Qualifiers: Laterality: left Lung location: unspecified part of lung Qualified Code(s): J18.9 - Pneumonia, unspecified organism Category: Medical Code(s): J18.9 - Pneumonia, unspecified organism (5) Acute UTI: Status: Acute Category: Medical Code(s): N39.0 - Urinary tract infection, site not specified (6) GORGE (acute kidney injury): Status: Acut
--- NOTE | 2023-04-26 23:33 | XR_ITS ---
PROCEDURE INFORMATION: Exam: XR Chest Exam date and time: 04/26/2023 11:50 PM Age: 87 years old Clinical indication: Other: Hypoxia TECHNIQUE: Imaging protocol: Radiologic exam of the chest. Views: 1 view. COMPARISON: CR XR CHEST PORTABLE 04/22/2023 4:23 PM FINDINGS: Lungs: Pulmonary vascular congestion. No consolidation. Pleural spaces: Moderate bilateral pleural effusions. No pneumothorax. Heart/Mediastinum: Mild cardiomegaly. Calcified atherosclerotic changes of the thoracic aorta. Bones/joints: No acute findings. Intraperitoneal space: Subdiaphragmatic course of enteric tube extending out of the field of view. IMPRESSION: Pulmonary vascular congestion and moderate bilateral pleural effusions.
[2023-04-27] VITALS (19 sets, daily range): BP systolic 118–176; BP diastolic 52–76; PULSE 70–103; RESP 16–28; TEMP 36.4–37.1; O2SAT 83–100; BMI 28.9
[2023-04-27 00:55] LABS: POC Glucose,Bedside 101 (70-110)
--- NOTE | 2023-04-27 05:40 | EXP.EVENT.NO ---
Notified by bedside RN around midnight of notable crackles in all lung mace. CXR obatined and notable for Pulmonary vascular congestion and moderate bilateral pleural effusions. Lasix IV given. Called by bedside RN again around 5 am for worsening adventitious lung sounds, oxygen desaturations into the mid 80s on 5 L NC. On my exam, diffuse coarse lung sounds noted with audible noises at oral phaynx. Bedside suctioning completed with tube feeding content from back of throat. Tube feeds held, and NG tube placed to LIWS. Deep NT suctioning performed by me with increase in oxygen saturations to mid 90s on NRB. Increased work of breathing noted with RR of 28. Will provide solumedrol, duonebs and Mag 2 gram for respiratory distress.
[2023-04-27 06:04] LABS: POC Glucose,Bedside 124 (70-110)
[2023-04-27 07:53] LABS: Chloride 100 mmol/L (98-107); Sodium 138 mmol/L (136-145)
[2023-04-27 07:56] LABS: Alanine Aminotransferase 18 U/L (12-78); Albumin Level 2.7 g/dl (3.5-5.0); Albumin/Globulin Ratio 0.8 (1.1-1.8); Alkaline Phosphatase 67 U/L (38-126); Aspartate Amino Transferase 32 U/L (14-36); Bilirubin,Total 0.7 mg/dl (0.2-1.3); Blood Urea Nitrogen 44 mg/dl (7-17); Calcium 7.9 mg/dl (8.4-10.2); Carbon Dioxide 36 mmol/L (22.0-30.0); Creatinine Clearance Estimated 46 mL/min (50-200); Estimated Glomerular Filt Rate 52 ml/min (>60); GFR (African American) 63 ML/MIN (>60); Globulin 3.3 g/dL (1.3-3.2); Glucose 117 mg/dl (74-100)
--- NOTE | 2023-04-27 09:18 | XR_ITS ---
PROCEDURE INFORMATION: Exam: XR Chest Exam date and time: 04/27/2023 9:40 AM Age: 87 years old Clinical indication: Shortness of breath; Additional info: Increased oxygen demand TECHNIQUE: Imaging protocol: Radiologic exam of the chest. Views: 1 view. COMPARISON: CR XR CHEST PORTABLE 04/26/2023 11:50 PM FINDINGS: Lungs: Worsening bibasilar opacities left worse than right. Pleural spaces: Continued small to moderate pleural effusions. Heart/Mediastinum: Unremarkable. No cardiomegaly. Bones/joints: Unremarkable. Gastrointestinal tract: Enteric tube to the stomach, tip not visualized. IMPRESSION: 1. Worsening bibasilar opacities left worse than right. 2. Continued small to moderate pleural effusions.
--- NOTE | 2023-04-27 09:19 | PC.NURSE ---
8515 [place] in [place] spoke with dr Tierney, informed him of pt increased o2 needs. pt currently on NRB with sats 95%. Dr Tierney ordered stat chest xray. ok to keep pt on nrb. 1572 this RN spoke with pt daughter Pauly. informed her of pt decline in status, recommended that pt daughter come to hospital as oxygen demands are increasing rapidly.
--- NOTE | 2023-04-27 09:53 | XR_ITS ---
PROCEDURE INFORMATION: Exam: XR Abdomen Exam date and time: 04/27/2023 10:39 AM Age: 87 years old Clinical indication: Device placement; Gi device; Nasogastric tube; Additional info: Verify ng placement/location TECHNIQUE: Imaging protocol: Radiologic exam of the abdomen. Views: Frontal supine view of the abdomen. 1 View. COMPARISON: CR XR CHEST PORTABLE 04/27/2023 9:40 AM FINDINGS: Tubes, catheters and devices: Nasogastric tube with tip in the stomach. Pleural spaces: Bibasilar opacities and pleural effusions. Gastrointestinal tract: Normal. No bowel dilation. Bones/joints: Unremarkable. IMPRESSION: 1. Nasogastric tube with tip in the stomach. 2. Bibasilar opacities and pleural effusions.
--- NOTE | 2023-04-27 11:39 | PC.NURSE ---
1100 dressing to left occipital scalp changed. wound irrigated wtih 20ml ns, vaseline guze placed in wound. covered with folded 4x4 and tape.
--- NOTE | 2023-04-27 12:59 | PC.NURSE ---
pt daughter Dot, son hi and grandson at bedside at this time. Marcellus Brenner Rn sitting at bedside at this time while son is present in pt room.
--- NOTE | 2023-04-27 17:14 | P.EN_ITS ---
Discussed with family at bedside regarding plan of care and currently overall patient health -patient's daughter, son at the bedside. Discussed in detail Current antibiotics and chest x-ray, labs with both. Also discussed goals of care including comfort care. Patient's family wishes to continue antibiotics however if patient health worsens they will consider comfort care. Will cont inue to administer antibiotics, oxygen support. Patient and family verbalized understanding and agreed with the treatment plan
--- NOTE | 2023-04-27 17:17 | EXP.PN ---
Subjective *Date: 04/27/23 *Time: 17:17 Interval history: Patient was seen and evaluated at the bedside, patient was normally mobile, not holding, patient was, patient appears confused Exam Data for Last 24 hours Vital signs and Labs for Last 24 Hours: Temp Pulse Resp BP Pulse Ox O2 Del Method O2 Flow Rate 97.5 F L 99 H 19 155/70 H 94 L Venturi Mask 15 04/27/23 07:42 04/27/23 16:00 04/27/23 14:00 04/27/23 14:00 04/27/23 16:00 04/27/23 16:00 04/27/23 12:40 FiO2 35 04/27/23 16:00 Laboratory Results - last 24 hr 04/25/23 23:49: POC Glucose 116 H 04/26/23 06:06: POC Glucose 125 H 04/26/23 17:13: POC Glucose 124 H 04/27/23 00:47: POC Glucose 101 04/27/23 05:46: POC Glucose 124 H 04/27/23 07:19: Sodium 138, Potassium 5.0, Chloride 100, Carbon Dioxide 36 H, Anion Gap 7.0, BUN 44 H, Creatinine 1.00, Estimated Creat Clear 46, Estimated GFR 52 L, Est GFR ( Amer) 63, Glucose 117 H, Calcium 7.9 L, Total Bilirubin 0.7, AST 32 D, ALT 18, Alkaline Phosphatase 67, Total Protein 6.0 L, Albumin 2.7 L, Globulin 3.3 H, Albumin/Globulin Ratio 0.8 L I & O for Last 24 hours: Intake & Output 04/24/23 04/25/23 04/26/23 04/27/23 23:59 23:59 23:59 23:59 Intake Total 3337 / 3337 2310 / 2310 3847 / 4468 1241 / 1241 Output Total 4950 / 4950 1400 / 1400 1725 / 2025 1450 / 1450 Balance -1613 / -1613 910 / 910 2122 / 2443 -209 / -209 Weight 65.3 kg 72.575 kg 73.028 kg 74.026 kg Constitutional Comments: Constitutional: Present mild distress, average body habitus, chronically ill appearing, disheveled and somnolent ENT: Present mucous membranes dry Comment:: 2 inch laceration posterior scalp noted, undermining of right side of laceration. No active bleeding. Neck: Present normal inspection Respiratory: Present rhonchi and normal respiratory effort; Absent wheezes Cardiac: Present Regular Rate and Systolic Murmur Comment:: Irregular rhythm GI: Present soft and normal bowel sounds; Absent distention or tenderness Rectal (female): Present deferred Extremities: Present full ROM; Absent tenderness Comment:: Stasis dermatitis lower extremities, improving edema in feet, wrinkling of skin, 1+ feet but trace in legs. Skin: Present intact and erythema Neuro: Absent Grossly Intact, alert, awake or moves all extremities Assessment and Plan *Assessment and plan (1) Encephalopathy acute: Status: Acute Category: Medical Code(s): G93.40 - Encephalopathy, unspecified (2) Sepsis: Status: Acute Qualifiers: Sepsis acute organ dysfunction status: with acute organ dysfunction Sepsis type: sepsis due to unspecified organism Severe sepsis acute organ dysfunction type: encephalopathy Severe sepsis shock status: without septic shock Qualified Code(s): A41.9 - Sepsis, unspecified organism; R65.20 - Severe sepsis without septic shock; G93.41 - Metabolic encephalopathy Category: Medical Code(s): A41.9 - Sepsis, unspecified organism (3) C. difficile colitis: Status: Acute Category: Medical Code(s): A04.72 - Enterocolitis due to Clostridium difficile, not specified as recurrent (4) CAP (community acquired pneumonia): Status: Acute Qualifiers: Laterality: left Lung location: unspecified part of lung Qualified Code(s): J18.9 - Pneumonia, unspecified organism Category: Medical Code(s): J18.9 - Pneumonia, unspecified organism (5) Acute UTI: Status: Acute Category: Medical Code(s): N39.0 - Urinary tract infection, site not specified (6) GORGE (acute kidney injury): Status: Acute Category: Medical Code(s): N17.9 - Acute kidney failure, unspecified (7) HTN (hypertension): Status: Acute Qualifiers: Hypertension type: unspecified Qualified Code(s): I10 - Essential (primary) hypertension Category: Medical Code(s): I10 - Essential (primary) hypertension (8) Pedevelioos
--- NOTE | 2023-04-27 17:27 | PC.NURSE ---
Pt has remained minimally responsive this shift. pt is noted to occasionally move her arm in the bed. pt spontaneously opens her eyes as well but does not follow commands or make eye contact with staff or visitors. pt has had son, daughter and grandson at bedside this shift. staff has remained with pt while son is present in room. lungs are less congested sounding this evening compared to this am. pt was deep suctioned once in the late morning. pt has heel protectors in place, feel elevated on pillows, arms elevated on pillows as well. pt is currently on 35% venti mask.
--- NOTE | 2023-04-27 19:20 | DIET.NUTRFU ---
RD reviewed fluid balance, continues at goal rate TG and flushes, intake of 3847ml and output of 1725ml. Reviewed sodium of 138 WNL. Continue current POC
[2023-04-27 20:58] LABS: POC Glucose,Bedside 122 (70-110)
[2023-04-28] VITALS (18 sets, daily range): BP systolic 103–146; BP diastolic 44–70; PULSE 65–86; RESP 10–16; TEMP 36.2–37.1; O2SAT 95–100; BMI 28.0
--- NOTE | 2023-04-28 10:03 | EXP.PULM.PN ---
Subjective *Date: 04/28/23 *Time: 12:27 Interval history: Patient has increasing oxygen requirements over the weekend Pulmonology Exam Inpatient Vital signs and Labs for Last 24 Hours: Temp Pulse Resp BP Pulse Ox O2 Del Method O2 Flow Rate 97.5 F L 78 18 103/50 L 96 Venturi Mask 9 04/28/23 08:00 04/28/23 09:56 04/28/23 09:56 04/28/23 09:56 04/28/23 09:56 04/28/23 09:56 04/28/23 07:46 FiO2 35 04/28/23 07:46 Laboratory Results - last 24 hr 04/27/23 20:42: POC Glucose 122 H I & O for Labs for Last 24 Hours: Intake & Output 04/25/23 04/26/23 04/27/23 04/28/23 23:59 23:59 23:59 23:59 Intake Total 2310 / 2310 3847 / 4468 1341 / 1401 60 / 60 Output Total 1400 / 1400 1725 / 2025 1750 / 2350 900 / 900 Balance 910 / 910 2122 / 2443 -409 / -949 -840 / -840 Weight 160 lb 161 lb 163 lb 3.2 oz 158 lb 6.4 oz Microbiology Reports for the Last 24 Hours: Microbiology 04/20/23 16:30 Urine,Clean Catch Urine Culture - Preliminary 04/20/23 18:25 Blood Blood Culture - Final Constitutional: Present severe distress Head: Present normocephalic and laceration; Absent atraumatic Comment:: Laceration/gaping wound in her occipital area Neck: Present normal inspection and full ROM Respiratory: Present respiratory distress, rhonchi and diminished air movement; Absent able to speak in complete sentences Cardiac: Present S1/S2, Tachycardia and radial pulses present GI: Present soft and distention; Absent tenderness or guarding Rectal (female): Present deferred (female): Present deferred Skin: Present intact; Absent cyanosis or jaundice Neuro: Absent alert, awake or oriented x 3 Extremities: Present normal inspection and edema; Absent clubbing or cyanosis Assessment and Plan *Assessment and plan (1) Pneumonia: Status: Acute Qualifiers: Laterality: left Lung location: lower lobe of lung Pneumonia type: due to unspecified organism Qualified Code(s): J18.9 - Pneumonia, unspecified organism Category: Medical Code(s): J18.9 - Pneumonia, unspecified organism (2) Acute respiratory failure with hypoxia: Status: Acute Category: Medical Code(s): J96.01 - Acute respiratory failure with hypoxia (3) Shock: Status: Acute Category: Medical Code(s): R57.9 - Shock, unspecified Plan Ms. Montilla is a 87-year-old female was brought to the hospital status post found down and altered mental status. Patient barely responds to verbal stimuli. Grimacing to pain. Chest x-ray no significant dense consolidation. Left pleural effusion//atelectasis. GORGE and hyponatremia noted. Hemoglobin of 6.4 dropped from 8.2 on admission. Received fluids History of COVID-19 pneumonia and PE on 03/26/2021 with a plan to continue anticoagulation for 3 months at that time. Echo from 04/07/2021 normal EF. Lower extremity venous Doppler negative. Status post units of transfusion hemoglobin normal. Serum CK levels within normal limits On initial examination auscultation bilateral rhonchorous breath sounds. On nonrebreather saturating 100%. Echocardiogram showed severe aortic stenosis. Echo from 2020 showed moderate stenosis. Continue to receive vancomycin and meropenem. Hemodynamic status improving. Blood cultures 1 bottle being Staph aureus. Will continue current antibiotic course. Continue to receive vitamin supplementation. Initiating phosphorus supplementations preemptively today. Interval update: Worsening ox requirements over the weekend. Chest x-ray showed bilateral worsening pleural effusions along with left lower lobe airspace disease. At one point escalated to 100% nonrebreather, eventually weaned to 35% Ventimask, currently satting 95 to 96%. Received 40 mg of IV Lasix twice over the weekend. Will hold off any further diuretics at this point of time. Will continue to monitor. Continue to receive vancomycin and meropenem. Plan: -Recommend to repeat blood cultures t
--- NOTE | 2023-04-28 10:17 | PC.NURSE ---
verbal order to advance NG tube and then repeat KUB. Restart tube feeds at 30 ml/hr, Jevity 1.2.
--- NOTE | 2023-04-28 10:18 | XR_ITS ---
FINAL REPORT CLINICAL HISTORY: NG tube advancement COMPARISON: None FINDINGS: SINGLE VIEW ABDOMEN A single view of the abdomen was obtained. An NG tube is present with its tip at the level of the pylorus. There is a nonobstructive bowel gas pattern. There is gas and stool present throughout the colon. There are no abnormally dilated loops of small bowel. No abnormal calcifications are identified. IMPRESSION: Nonobstructive bowel gas pattern. NG tube is present with its tip at the level of the pylorus. Reviewed, Interpreted and Dictated by Anil Valdez MD Transcribed by Mally Sanabria Authenticated and [facility]
--- NOTE | 2023-04-28 10:31 | PC.NURSE ---
NG tube advance from 55 cm to 60 cm, radiology at bedside at this time for KUB.
--- NOTE | 2023-04-28 10:32 | PC.NURSE ---
pt's daughter at bedside and updated on POC for this date.
--- NOTE | 2023-04-28 11:16 | PC.NURSE ---
pt given bath at this time, total bed change. foam dressing applied to pt's coccyx area. redness and excoriation noted. heel protectors applied to bilateral heels and pillow underneath. pt's dressing on her head changed at this time. vaseline gauze, telfa, medipore tape.
--- NOTE | 2023-04-28 12:29 | PC.NURSE ---
attempted to call Debbie in dietary regarding pt's tube feeds, no answer at this time.
--- NOTE | 2023-04-28 12:38 | PC.NURSE ---
Spoke with Debbie in dietary regarding pt's tube feed and free water. informed to have free water at 310 q 4 hr.
--- NOTE | 2023-04-28 13:10 | DIET.NUTRFU ---
RD notified that TF was put on hold secondary to aspiration risk. Pulmonary okayed to restart and KUB was completed with placement verified. Started at 30ml/hr and increase to goal rate of 65ml/hr as tolerated. Flush with 310ml water Q4H to meet hydration needs. Labs on 04/27 were reviewed. 1 BM noted on 04/27 and already 2 noted today. Family has been in to visit and still deciding is they want comfort or aggressive care. Will continue to monitor POC
--- NOTE | 2023-04-28 17:40 | PC.NURSE ---
pt nonverbal t/o entire shift. pt did squeeze this nurse hand once when asked. patient has mostly slept. daughter was at bedside most of the day. pt remains on 35% venturi mask. abdomen soft. pt has ng to left nare at 60cm. pt did have tube feeds restarted. initially started at 30 and increased to 40. pt continues to have edema to right upper extremity and BLE. pt received bath and total bed this shift. pt has f/c draining. wound care was provided to posterior head wound with vaseline gauze, telfa, and medipore tape. pt does have excoriation under bilateral breast and periarea. flower dx applied to coccyx area and q2 turn. pt's daughter has voiced to myself and charge that she will potentially make pt comfort measures tomorrow. pt has heel protectors in place and feet offloaded on pillows as well as a pillow under right arm.
--- NOTE | 2023-04-28 18:16 | EXP.PN ---
Subjective *Date: 04/28/23 *Time: 18:32 Interval history: Patient was seen and evaluated at the bedside, patient was not holding conversation, opening eyes to loud verbal stimuli Exam Data for Last 24 hours Vital signs and Labs for Last 24 Hours: Temp Pulse Resp BP Pulse Ox O2 Del Method O2 Flow Rate 98.7 F 72 14 137/45 L 100 Venturi Mask 9 04/28/23 16:00 04/28/23 17:50 04/28/23 17:50 04/28/23 17:50 04/28/23 17:50 04/28/23 17:00 04/28/23 16:00 FiO2 35 04/28/23 16:00 Laboratory Results - last 24 hr 04/27/23 20:42: POC Glucose 122 H I & O for Last 24 hours: Intake & Output 04/25/23 04/26/23 04/27/23 04/28/23 23:59 23:59 23:59 23:59 Intake Total 2310 / 2310 3847 / 4468 1341 / 1401 334 / 334 Output Total 1400 / 1400 1725 / 2025 1750 / 2350 1425 / 1425 Balance 910 / 910 2122 / 2443 -409 / -949 -1091 / -1091 Weight 72.575 kg 73.028 kg 74.026 kg 71.849 kg Constitutional Comments: Constitutional: Present mild distress, average body habitus, chronically ill appearing, disheveled and somnolent ENT: Present mucous membranes dry Comment:: 2 inch laceration posterior scalp noted, undermining of right side of laceration. No active bleeding. Neck: Present normal inspection Respiratory: Present rhonchi and normal respiratory effort; Absent wheezes Cardiac: Present Regular Rate and Systolic Murmur Comment:: Irregular rhythm GI: Present soft and normal bowel sounds; Absent distention or tenderness Rectal (female): Present deferred Extremities: Present full ROM; Absent tenderness Comment:: Stasis dermatitis lower extremities, improving edema in feet, wrinkling of skin, 1+ feet but trace in legs. Skin: Present intact and erythema Neuro: Absent Grossly Intact, alert, awake or moves all extremities Assessment and Plan *Assessment and plan (1) Encephalopathy acute: Status: Acute Category: Medical Code(s): G93.40 - Encephalopathy, unspecified (2) Sepsis: Status: Acute Qualifiers: Sepsis acute organ dysfunction status: with acute organ dysfunction Sepsis type: sepsis due to unspecified organism Severe sepsis acute organ dysfunction type: encephalopathy Severe sepsis shock status: without septic shock Qualified Code(s): A41.9 - Sepsis, unspecified organism; R65.20 - Severe sepsis without septic shock; G93.41 - Metabolic encephalopathy Category: Medical Code(s): A41.9 - Sepsis, unspecified organism (3) C. difficile colitis: Status: Acute Category: Medical Code(s): A04.72 - Enterocolitis due to Clostridium difficile, not specified as recurrent (4) CAP (community acquired pneumonia): Status: Acute Qualifiers: Laterality: left Lung location: unspecified part of lung Qualified Code(s): J18.9 - Pneumonia, unspecified organism Category: Medical Code(s): J18.9 - Pneumonia, unspecified organism (5) Acute UTI: Status: Acute Category: Medical Code(s): N39.0 - Urinary tract infection, site not specified (6) GORGE (acute kidney injury): Status: Acute Category: Medical Code(s): N17.9 - Acute kidney failure, unspecified (7) HTN (hypertension): Status: Acute Qualifiers: Hypertension type: unspecified Qualified Code(s): I10 - Essential (primary) hypertension Category: Medical Code(s): I10 - Essential (primary) hypertension (8) Pediculosis capitis: Status: Acute Category: Medical Code(s): B85.0 - Pediculosis due to Pediculus humanus capitis (9) Bug bite: Status: Acute Qualifiers: Encounter type: initial encounter Qualified Code(s): W57.XXXA - Bitten or stung by nonvenomous insect and other nonvenomous arthropods, initial encounter Category: Medical Code(s): W57.XXXA - Bitten or stung by nonvenomous insect and other nonvenomous arthropods, initial encounter (10) Adult neglect or aban
[2023-04-29] VITALS (14 sets, daily range): BP systolic 136–163; BP diastolic 50–70; PULSE 74–103; RESP 9–15; TEMP 36.6–37.3; O2SAT 93–100; BMI 24.0
[2023-04-29 00:07] LABS: POC Glucose,Bedside 85 (70-110)
[2023-04-29 00:07] LABS: POC Glucose,Bedside 99 (70-110)
[2023-04-29 00:07] LABS: POC Glucose,Bedside 116 (70-110)
[2023-04-29 00:07] LABS: POC Glucose,Bedside 93 (70-110)
[2023-04-29 00:07] LABS: POC Glucose,Bedside 98 (70-110)
--- NOTE | 2023-04-29 05:03 | PC.NURSE ---
Shift Summary: Pt GCS 7-9 throughout shift, opens eyes spontaneously, especially to noxious stimuli. Withdrawn behavior, no vocalization, or purposeful movement of extremities. Intermittently squeezes L hand on command. VSS on Venturi mask 9 L 35% FiO2, no S/Sx of aspiration during shift. Pt tolerated PO care throughout shift. Bed bath and linen change provided this a.m. Turn Q2 hrs implemented to monitor skin. Barrier cream and powder applied to target areas. No other acute events or issues overnight. Fall precautions implemented.
--- NOTE | 2023-04-29 06:20 | PC.NURSE ---
Mental Measurements Teacher at bedside unable to stick pt for a.m. labs. RN attempted to obtain blood from midline, but no blood back despite flushes and tourniquet. [facility] will send another electric meter setter to attempt.
--- NOTE | 2023-04-29 08:25 | PC.NURSE ---
COURTESY NOTE: morning round completed on pt. pt denies needing assistance at this time. call clotilde within reach. Desmond SRNA
--- NOTE | 2023-04-29 09:38 | EXP.PULM.PN ---
Subjective *Date: 04/29/23 *Time: 10:57 Interval history: No acute respiratory vents overnight. Significant improvement in mentation. Pulmonology Exam Inpatient Vital signs and Labs for Last 24 Hours: Temp Pulse Resp BP Pulse Ox O2 Del Method O2 Flow Rate 98.1 F 85 12 136/53 L 96 Venturi Mask 9 04/29/23 08:00 04/29/23 06:20 04/29/23 06:00 04/29/23 06:00 04/29/23 06:20 04/29/23 06:32 04/29/23 06:32 FiO2 35 04/29/23 06:20 Laboratory Results - last 24 hr 04/28/23 00:47: POC Glucose 116 H 04/28/23 05:55: POC Glucose 98 04/28/23 11:54: POC Glucose 93 04/28/23 17:11: POC Glucose 85 04/28/23 23:57: POC Glucose 99 I & O for Labs for Last 24 Hours: Intake & Output 04/26/23 04/27/23 04/28/23 04/29/23 23:59 23:59 23:59 23:59 Intake Total 3847 / 4468 1341 / 1401 555 / 666 257 / 257 Output Total 1725 / 2025 1750 / 2350 1525 / 1725 400 / 400 Balance 2122 / 2443 -409 / -949 -970 / -1059 -143 / -143 Weight 161 lb 163 lb 3.2 oz 158 lb 6.4 oz 135 lb 9.349 oz Microbiology Reports for the Last 24 Hours: Microbiology 04/20/23 16:30 Urine,Clean Catch Urine Culture - Preliminary 04/20/23 18:25 Blood Blood Culture - Final Constitutional: Present severe distress Head: Present normocephalic and laceration; Absent atraumatic Comment:: Laceration/gaping wound in her occipital area Neck: Present normal inspection and full ROM Respiratory: Present respiratory distress, rhonchi and diminished air movement; Absent able to speak in complete sentences Cardiac: Present S1/S2, Tachycardia and radial pulses present GI: Present soft and distention; Absent tenderness or guarding Rectal (female): Present deferred (female): Present deferred Skin: Present intact; Absent cyanosis or jaundice Neuro: Present awake; Absent alert or oriented x 3 Extremities: Present normal inspection and edema; Absent clubbing or cyanosis Assessment and Plan *Assessment and plan (1) Pneumonia: Status: Acute Qualifiers: Laterality: left Lung location: lower lobe of lung Pneumonia type: due to unspecified organism Qualified Code(s): J18.9 - Pneumonia, unspecified organism Category: Medical Code(s): J18.9 - Pneumonia, unspecified organism (2) Acute respiratory failure with hypoxia: Status: Acute Category: Medical Code(s): J96.01 - Acute respiratory failure with hypoxia Plan Ms. Montilla is a 87-year-old female was brought to the hospital status post found down and altered mental status. Patient barely responds to verbal stimuli. Grimacing to pain. Chest x-ray no significant dense consolidation. Left pleural effusion//atelectasis. GORGE and hyponatremia noted. Hemoglobin of 6.4 dropped from 8.2 on admission. Received fluids History of COVID-19 pneumonia and PE on 03/26/2021 with a plan to continue anticoagulation for 3 months at that time. Echo from 04/07/2021 normal EF. Lower extremity venous Doppler negative. Status post units of transfusion hemoglobin normal. Serum CK levels within normal limits On initial examination auscultation bilateral rhonchorous breath sounds. On nonrebreather saturating 100%. Echocardiogram showed severe aortic stenosis. Echo from 2020 showed moderate stenosis. Continue to receive vancomycin and meropenem. Hemodynamic status improving. Blood cultures 1 bottle being Staph aureus. Will continue current antibiotic course. Continue to receive vitamin supplementation. Initiating phosphorus supplementations preemptively today. Interval update: No acute respiratory vents overnight. Patient remains on Ventimask at 35% with saturations maintaining at 95 to 99%. Continue to receive vancomycin, day 9 and meropenem day 7. Chest x-ray from this morning, no acute infiltrates will continue to show pleural effusion relatively stable. Plan: -Lasix 40mg IV once. -Recommend to repeat blood cultures to determine the duration of vancomycin for the noted bacteremia. Recommend c
--- NOTE | 2023-04-29 09:39 | XR_ITS ---
FINAL REPORT CLINICAL HISTORY: Hypoxia COMPARISON: 04/27/2023 FINDINGS: The heart is mildly enlarged. An NG tube was seen with the tip extending off the inferior extent of the image. The mediastinum is within normal limits. There are small to moderate bilateral pleural effusions similar to the prior exam allowing for differences in positioning. There is no acute infiltrate. There is no pneumothorax. The bony thorax is intact. IMPRESSION: Small to moderate bilateral pleural effusions similar to prior. Reviewed, Interpreted and Dictated by Anil Valdez MD Transcribed by Sonido Washington Authenticated and [facility]
--- NOTE | 2023-04-29 10:21 | DIET.NUTRFU ---
Spoke to nursing, nursing turned TF up to 50ml this morning and left the flush at 310 Q4H. Nursing was unable to get labs this morning d/t Preparatory Technician not being able to pull blood. She only received 255via TF according to I/O, Urine output 1275ml and 2 BM yesterday and 1 already today. Continues on vanc for C-diff. Lasix restarted with edema noted to upper extremities. Will monitor sodium labs if able to get them, previously sodium was high. Once goal rate reached will decreased flush water amount. Will continue to monitor POC
[2023-04-29 11:48] LABS: Basophils % 0.1 % (0.1-2.0); Eosinophils # 0.2 K/mm3 (0.0-0.4); Eosinophils % 2.9 % (0.1-12.0); Hematocrit 33.4 % (37.0-47.0); Hemoglobin 10.5 g/dL (12.2-16.2); Lymphocytes # 0.7 K/mm3 (0.7-4.5); Lymphocytes % 9.9 % (10-50); Mean Corpuscular HGB Conc 31.5 g/dL (31.8-35.4); Mean Corpuscular Volume 79.4 fl (81-99); Mean Platelet Volume 11.8 fl (7.4-10.4); Monocytes # 0.4 K/mm3 (0.1-1.0); Monocytes % 6.4 % (1.7-9.3); Neutrophils # 5.4 K/mm3 (1.8-7.8); Neutrophils % 80.8 % (37.0-80.0); Platelet Count 123 K/mm3 (142-424); Red Cell Distribution Width 17.8 % (11.5-17.5); White Blood Count 6.6 K/mm3 (4.8-10.8)
[2023-04-29 11:53] LABS: Chloride 96 mmol/L (98-107); Potassium 4.1 mmoL/L (3.5-5.1); Sodium 139 mmol/L (136-145)
[2023-04-29 11:55] LABS: Alanine Aminotransferase 24 U/L (12-78); Aspartate Amino Transferase 41 U/L (14-36); Blood Urea Nitrogen 47 mg/dl (7-17); Creatinine Clearance Estimated 35 mL/min (50-200); Estimated Glomerular Filt Rate 47 ml/min (>60); GFR (African American) 57 ML/MIN (>60)
[2023-04-29 11:56] LABS: Albumin Level 2.8 g/dl (3.5-5.0); Albumin/Globulin Ratio 0.9 (1.1-1.8); Alkaline Phosphatase 72 U/L (38-126); Bilirubin,Total 0.5 mg/dl (0.2-1.3); Globulin 3.2 g/dL (1.3-3.2); Glucose 136 mg/dl (74-100); Magnesium 1.9 mg/dl (1.6-2.3)
[2023-04-29 11:58] LABS: Anion Gap 7.1 mEq/L (5-15)
[2023-04-29 12:02] LABS: C-Reactive Protein 9.3 mg/L (0-4)
--- NOTE | 2023-04-29 12:07 | PC.NURSE ---
COURTESY NOTE: afternoon round completed on pt. pt denies needing assistance at this time. call clotilde within reach. Svitlana SRNA
[2023-04-29 12:09] LABS: Carbon Dioxide 41 mmol/L (22.0-30.0)
[2023-04-29 12:27] LABS: Erythrocyte Sedimentation Rate 29 mm/hr (0-30)
--- NOTE | 2023-04-29 13:03 | EXP.ACUTE.PN ---
Subjective *Date: 04/29/23 *Time: 18:25 Interval history: Patient responsive today. Weak but answered simple yes/no questions. Told me her name. Following commands. Tolerating weaning of oxygen. Currently on 35% Venti on rounds. 3 bowel movements in the past 24 hours. Daughter at bedside in the early afternoon. Discussed goals of care. Continue with current treatment. Medical Exam Vital signs and Labs for Last 24 Hours: Vital Signs Temp Pulse Pulse Resp BP Pulse Ox O2 Del Method 04/29/23 12:00 99.2 F 04/29/23 11:26 89 04/29/23 11:26 88 04/29/23 08:00 Venturi Mask 04/29/23 10:33 Venturi Mask 04/29/23 09:00 Venturi Mask 04/29/23 10:00 79 9 L 146/58 H 97 Venturi Mask 04/29/23 08:00 89 13 156/58 H 98 Venturi Mask 04/29/23 10:05 78 04/29/23 08:00 98.1 F 04/29/23 06:32 Venturi Mask 04/29/23 06:20 85 04/29/23 06:20 80 04/29/23 06:20 96 Venturi Mask 04/29/23 06:00 84 12 136/53 L 96 Venturi Mask 04/29/23 05:00 Venturi Mask 04/29/23 04:00 96 H 04/29/23 04:00 98.4 F 92 H 12 144/53 H 98 Venturi Mask 04/29/23 04:00 92 H 12 98 Venturi Mask 04/29/23 03:00 Venturi Mask 04/29/23 01:59 82 12 154/50 H 97 Venturi Mask 04/29/23 01:00 Venturi Mask 04/29/23 00:00 97.8 F 74 12 150/51 H 100 Venturi Mask 04/29/23 00:00 89 04/28/23 23:58 71 04/28/23 23:58 74 04/28/23 23:00 Venturi Mask 04/28/23 22:00 78 12 144/52 H 100 Venturi Mask 04/28/23 21:00 Venturi Mask 04/28/23 20:00 97.4 F L 84 10 L 142/70 H 98 Venturi Mask 04/28/23 20:00 84 10 L 99 Venturi Mask 04/28/23 20:00 66 04/28/23 18:28 Venturi Mask 04/28/23 18:28 65 04/28/23 18:28 70 04/28/23 18:28 98 Venturi Mask 04/28/23 16:00 80 04/28/23 17:50 72 14 137/45 L 100 Venturi Mask 04/28/23 17:00 Venturi Mask 04/28/23 16:00 97.2 F L 04/28/23 16:00 98.7 F 74 14 118/51 L 97 Venturi Mask 04/28/23 16:00 97 Venturi Mask 04/28/23 14:44 Venturi Mask 04/28/23 14:00 70 14 111/53 L 97 Venturi Mask O2 Flow Rate FiO2 04/29/23 12:00 04/29/23 11:26 04/29/23 11:26 04/29/23 08:00 35 04/29/23 10:33 04/29/23 09:00 04/29/23 10:00 35 04/29/23 08:00 35 04/29/23 10:05 04/29/23 08:00 04/29/23 06:32 9 04/29/23 06:20 04/29/23 06:20 04/29/23 06:20 9 35 04/29/23 06:00 9 35 04/29/23 05:00 9 04/29/23 04:00 04/29/23 04:00 9 35 04/29/23 04:00 9 35 04/29/23 03:00 9 04/29/23 01:59 9 35 04/29/23 01:00 9 04/29/23 00:00 9 35 04/29/23 00:00 04/28/23 23:58 04/28/23 23:58 04/28/23 23:00 9 04/28/23 22:00 9 40 04/28/23 21:00 9 04/28/23 20:00 9 35 04/28/23 20:00 9 35 04/28/23 20:00 04/28/23 18:28 04/28/23 18:28 04/28/23 18:28 04/28/23 18:28 9 35 04/28/23 16:00 04/28/23 17:50 04/28/23 17:00 04/28/23 16:00 04/28/23 16:00 04/28/23 16:00 9 35 04/28/23 14:44 04/28/23 14:00 Intake and Output 04/28/23 04/29/23 04/29/23 23:59 07:59 15:59 Intake Total 395 / 666 257 / 257 0 / 257 Output Total 375 / 1725 400 / 1025 625 / 1025 Balance 20 / -1059 -143 / -768 -625 / -768 Intake: Intake, Oral Amount 0 / 0 0 / 0 0 / 0 Intake, Tube Feeding Amount 255 / 366 257 / 257 Intake, Tube Irrigant Amount 30 / Intake, Other Amount 10 / 10 Intake, Total IV Amount 100 / 200 Meropenem 0.5 gm In 0.9 % 100 / 200 Sodium Chloride 100 ml @ 100 mls/hr IV Q12 [facility] Rx#:[id number] Output: Output, Urine Amount 625 / 625 Output, Urine Amount (Catheter) 375 / 1475 400 / 400 Huang 375 / 1475 400 / 400 Other: Intake, Other Source Saline Solution Number of Unmeasured Voids 0 Number of Bowel Movements 1 Weight 61.5 kg Patie
--- NOTE | 2023-04-29 13:30 | PC.NURSE ---
Rounded on patient. No needs or concerns at this time. Daughter is at bedside.
--- NOTE | 2023-04-29 20:00 | PC.NURSE ---
Patient tolerating tube feeds well without residual to be pulled. Placing patient on goal rate of 65mL/hr with 310mL/4hr water flush. No s/sx of aspiration during this assessment.
[2023-04-30] VITALS (17 sets, daily range): BP systolic 108–162; BP diastolic 48–68; PULSE 85–106; RESP 15–20; TEMP 36.3–37.7; O2SAT 87–96; BMI 24.2
--- NOTE | 2023-04-30 01:01 | PC.NURSE ---
Patient has night time desaturation while sleeping. Lowest pulse ox showed 87%-90% on room air. Patient does not tolerate NS, so placed on Venturi mask at 3L/24% and tolerating well.
[2023-04-30 04:43] LABS: Basophils % 0.3 % (0.1-2.0); Eosinophils # 0.1 K/mm3 (0.0-0.4); Eosinophils % 2.1 % (0.1-12.0); Hematocrit 27.4 % (37.0-47.0); Lymphocytes # 0.6 K/mm3 (0.7-4.5); Lymphocytes % 9.1 % (10-50); Mean Corpuscular Hemoglobin 25.1 pg (27.0-31.2); Mean Corpuscular Volume 78.6 fl (81-99); Mean Platelet Volume 11.3 fl (7.4-10.4); Monocytes # 0.5 K/mm3 (0.1-1.0); Monocytes % 7.5 % (1.7-9.3); Neutrophils # 5.1 K/mm3 (1.8-7.8); Neutrophils % 81.1 % (37.0-80.0); Platelet Count 124 K/mm3 (142-424); Red Blood Count 3.48 M/mm3 (4.20-5.40); Red Cell Distribution Width 18.4 % (11.5-17.5); White Blood Count 6.3 K/mm3 (4.8-10.8)
[2023-04-30 04:45] LABS: Chloride 96 mmol/L (98-107); Potassium 4.3 mmoL/L (3.5-5.1); Sodium 139 mmol/L (136-145)
[2023-04-30 04:48] LABS: Alanine Aminotransferase 21 U/L (12-78); Albumin Level 2.3 g/dl (3.5-5.0); Albumin/Globulin Ratio 0.8 (1.1-1.8); Alkaline Phosphatase 65 U/L (38-126); Aspartate Amino Transferase 34 U/L (14-36); Bilirubin,Total 0.4 mg/dl (0.2-1.3); Blood Urea Nitrogen 50 mg/dl (7-17); Calcium 7.3 mg/dl (8.4-10.2); Creatinine Clearance Estimated 39 mL/min (50-200); Estimated Glomerular Filt Rate 52 ml/min (>60); GFR (African American) 63 ML/MIN (>60); Globulin 2.8 g/dL (1.3-3.2); Glucose 126 mg/dl (74-100); Total Protein,Serum 5.1 g/dl (6.3-8.2)
[2023-04-30 04:50] LABS: Hemoglobin 8.7 g/dL (12.2-16.2)
[2023-04-30 04:57] LABS: Anion Gap 4.3 mEq/L (5-15); Carbon Dioxide 43 mmol/L (22.0-30.0)
[2023-04-30 05:05] LABS: Magnesium 1.9 mg/dl (1.6-2.3); Phosphorous 4.6 mg/dl (2.5-4.5)
--- NOTE | 2023-04-30 06:31 | PC.NURSE ---
End of shift summary: Patient has become more alert and has good strength to her left upper extremity. Her BLE and RUE remain weak and flaccid on exam; however, this has been patient's baseline since arrival. Skin remains excoriated to underside of both breasts. Her buttocks and perineal area remain severely excoriated despite several measures to keep patient dry with intact skin. This RN along with JULIO CESAR Barahona gave partial bed bath this evening to reassess area. The area was thoroughly cleansed, dried, and barrier cream placed to areas exposed to moisture. Patient tolerated well. No open areas were noted. Huang remains in place and patent. Patient has LUE midline which is patent with positive blood return and easily flushed. Patient resting now, VSS, NAD.
--- NOTE | 2023-04-30 08:25 | EXP.PHA.CONS ---
Pharmacy Consult Date: 04/30/23 Time: 08:25 Referring provider: DR. DAS Reason for Consult:: VANCOMYCIN DOSING Allergies Allergy/AdvReac Type Severity Reaction Status Date / Time Penicillins [PENICILLINS] Allergy Mild Verified 02/16/20 13:50 Home Medications Medication Instructions Recorded Confirmed Type No Known Home Medications 04/21/23 04/21/23 History New Prescriptions to Start Prescriptions: Height: 1.6 m Weight: 62.051 kg Laboratory Results:: Laboratory Results - last 24 hr 04/29/23 11:39: WBC 6.6, RBC 4.20, Hgb 10.5 L, Hct 33.4 L, MCV 79.4 L, MCH 25.0 L, MCHC 31.5 L, RDW 17.8 H, Plt Count 123 L D, MPV 11.8 H, Neut % (Auto) 80.8 H, Lymph % (Auto) 9.9 L, Newberry % (Auto) 6.4, Eos % (Auto) 2.9, Baso % (Auto) 0.1, Neut # (Auto) 5.4, Lymph # (Auto) 0.7, Newberry # (Auto) 0.4, Eos # (Auto) 0.2, Baso # (Auto) 0.0, ESR 29, Sodium 139, Potassium 4.1, Chloride 96 L, Carbon Dioxide 41 H*, Anion Gap 7.1, BUN 47 H, Creatinine 1.10 H, Estimated Creat Clear 35, Estimated GFR 47 L, Est GFR ( Amer) 57 L, Glucose 136 H, Calcium 8.0 L, Phosphorus 5.0 H, Magnesium 1.9, Total Bilirubin 0.5, AST 41 H D, ALT 24 D, Alkaline Phosphatase 72, C-Reactive Protein 9.3 H, Total Protein 6.0 L, Albumin 2.8 L, Globulin 3.2, Albumin/Globulin Ratio 0.9 L 04/30/23 04:34: WBC 6.3, RBC 3.48 L, Hgb 8.7 L D, Hct 27.4 L, MCV 78.6 L, MCH 25.1 L, MCHC 32.0, RDW 18.4 H, Plt Count 124 L, MPV 11.3 H, Neut % (Auto) 81.1 H, Lymph % (Auto) 9.1 L, Newberry % (Auto) 7.5, Eos % (Auto) 2.1, Baso % (Auto) 0.3, Neut # (Auto) 5.1, Lymph # (Auto) 0.6 L, Newberry # (Auto) 0.5, Eos # (Auto) 0.1, Baso # (Auto) 0.0, Sodium 139, Potassium 4.3, Chloride 96 L, Carbon Dioxide 43 H*, Anion Gap 4.3 L, BUN 50 H, Creatinine 1.00, Estimated Creat Clear 39, Estimated GFR 52 L, Est GFR ( Amer) 63, Glucose 126 H, Calcium 7.3 L, Phosphorus 4.6 H, Magnesium 1.9, Total Bilirubin 0.4, AST 34, ALT 21, Alkaline Phosphatase 65, Total Protein 5.1 L, Albumin 2.3 L D, Globulin 2.8, Albumin/Globulin Ratio 0.8 L Medical History: Medical History (Updated 04/23/23 @ 09:57 by George Das MD) Acute respiratory failure with hypoxia GORGE (acute kidney injury) Aortic heart murmur Aortic stenosis Chronic UTI (urinary tract infection) COVID-19 Fracture of radial neck, left, closed HTN (hypertension) Pneumonia Sepsis Shock Assessment and Plan Assessment and plan all Dx Assessment and Plan for all problems:: Pharmacokinetic dosing service Objective: Patient: Floor: Age: 87 yo Serum creatinine: 1.00 mg/dL Height: 63.0 Inches Weight (kg): 62.1 Assessment: IBW (kg): 52.40 Dosing wt(kg): 62.1 Estimated Creatinine clearance (ml/min): 32.8 CRCL method: Cockcroft and Gault using ibw(default). Drug selected: Vancomycin Loading dose (mg): Vd (liters): 46.6 (factor used: 0.75 L/kg) Jamshid (hr-1): 0.032 Half life (hrs): 21.66 CLvanco=?? 1.491 L/hr Recommended dose: 1500 mg Interval: 48 hrs Infusion time (hrs): 2.0 Predicted peak (mcg/mL): 39.7 Predicted trough (mcg/mL): 9.11 Total body weight is being used for vancomycin dosing. Recommendations: Give Vancomycin 1500 mg q 48 hrs with an expected Cpeak of 39.7 mcg/ml and an expected Ctrough of 9.11 mcg/ml AUC 0-24 /RANJAN Data: RANJAN 0.5 mcg/mL:?? AUC/RANJAN:? 1006.0 RANJAN 1.0 mcg/mL:?? AUC/RANJAN:? 503.0 --------- RANJAN 1.5 mcg/mL:?? AUC/RANJAN:? 335.3 RANJAN 2.0 mcg/mL:?? AUC/RANJAN:? 251.5 Thank you for the consult, will continue to follow. -CAMRYN MATSON, JOSEFINAD
--- NOTE | 2023-04-30 09:41 | EXP.PULM.PN ---
Subjective *Date: 04/30/23 *Time: 12:36 Interval history: No acute respiratory vents overnight. Weaned to nasal cannula. Significant improvement in mentation patient awake and responding to verbal commands. Pulmonology Exam Inpatient Vital signs and Labs for Last 24 Hours: Temp Pulse Resp BP Pulse Ox O2 Del Method O2 Flow Rate 98.8 F 91 H 19 129/57 L 91 L Room Air 3 04/30/23 07:47 04/30/23 08:00 04/30/23 07:47 04/30/23 07:47 04/30/23 07:47 04/30/23 07:47 04/30/23 04:46 FiO2 28 04/30/23 04:00 Laboratory Results - last 24 hr 04/29/23 11:39: WBC 6.6, RBC 4.20, Hgb 10.5 L, Hct 33.4 L, MCV 79.4 L, MCH 25.0 L, MCHC 31.5 L, RDW 17.8 H, Plt Count 123 L D, MPV 11.8 H, Neut % (Auto) 80.8 H, Lymph % (Auto) 9.9 L, [place] % (Auto) 6.4, Eos % (Auto) 2.9, Baso % (Auto) 0.1, Neut # (Auto) 5.4, Lymph # (Auto) 0.7, [place] # (Auto) 0.4, Eos # (Auto) 0.2, Baso # (Auto) 0.0, ESR 29, Sodium 139, Potassium 4.1, Chloride 96 L, Carbon Dioxide 41 H*, Anion Gap 7.1, BUN 47 H, Creatinine 1.10 H, Estimated Creat Clear 35, Estimated GFR 47 L, Est GFR ( Amer) 57 L, Glucose 136 H, Calcium 8.0 L, Phosphorus 5.0 H, Magnesium 1.9, Total Bilirubin 0.5, AST 41 H D, ALT 24 D, Alkaline Phosphatase 72, C-Reactive Protein 9.3 H, Total Protein 6.0 L, Albumin 2.8 L, Globulin 3.2, Albumin/Globulin Ratio 0.9 L 04/30/23 04:34: WBC 6.3, RBC 3.48 L, Hgb 8.7 L D, Hct 27.4 L, MCV 78.6 L, MCH 25.1 L, MCHC 32.0, RDW 18.4 H, Plt Count 124 L, MPV 11.3 H, Neut % (Auto) 81.1 H, Lymph % (Auto) 9.1 L, [place] % (Auto) 7.5, Eos % (Auto) 2.1, Baso % (Auto) 0.3, Neut # (Auto) 5.1, Lymph # (Auto) 0.6 L, [place] # (Auto) 0.5, Eos # (Auto) 0.1, Baso # (Auto) 0.0, Sodium 139, Potassium 4.3, Chloride 96 L, Carbon Dioxide 43 H*, Anion Gap 4.3 L, BUN 50 H, Creatinine 1.00, Estimated Creat Clear 39, Estimated GFR 52 L, Est GFR ( Amer) 63, Glucose 126 H, Calcium 7.3 L, Phosphorus 4.6 H, Magnesium 1.9, Total Bilirubin 0.4, AST 34, ALT 21, Alkaline Phosphatase 65, Total Protein 5.1 L, Albumin 2.3 L D, Globulin 2.8, Albumin/Globulin Ratio 0.8 L I & O for Labs for Last 24 Hours: Intake & Output 04/27/23 04/28/23 04/29/23 04/30/23 23:59 23:59 23:59 23:59 Intake Total 1341 / 1401 555 / 666 2249 / 3221 1510 / 1510 Output Total 1750 / 2350 1525 / 1725 1925 / 2225 400 / 400 Balance -409 / -949 -970 / -1059 324 / 996 1110 / 1110 Weight 163 lb 3.2 oz 158 lb 6.4 oz 135 lb 9.349 oz 136 lb 12.8 oz Microbiology Reports for the Last 24 Hours: Microbiology 04/20/23 16:23 Blood Blood Culture - Final Constitutional: Present severe distress Head: Present normocephalic and laceration; Absent atraumatic Comment:: Laceration/gaping wound in her occipital area Neck: Present normal inspection and full ROM Respiratory: Present respiratory distress and rhonchi; Absent diminished air movement or able to speak in complete sentences Cardiac: Present S1/S2, Tachycardia and radial pulses present GI: Present soft and distention; Absent tenderness or guarding Rectal (female): Present deferred (female): Present deferred Skin: Present intact; Absent cyanosis or jaundice Neuro: Present alert and awake; Absent oriented x 3 Extremities: Present normal inspection and edema; Absent clubbing or cyanosis Assessment and Plan *Assessment and plan (1) Pneumonia: Status: Acute Qualifiers: Laterality: left Lung location: lower lobe of lung Pneumonia type: due to unspecified organism Qualified Code(s): J18.9 - Pneumonia, unspecified organism Category: Medical Code(s): J18.9 - Pneumonia, unspecified organism (2) Acute respiratory failure with hypoxia: Status: Acute Category: Medical Code(s): J96.01 - Acute respiratory failure with hypoxia Plan Ms. Montilla is a 87-year-old female was brought to the hospital status post found down and altered mental status. Patient barely responds to verbal stimuli. Grimacing to pain. Chest x-ray no significant dense consol
--- NOTE | 2023-04-30 09:43 | DIET.NUTRFU ---
Addendum entered by Debbie Boswell, RD, LD 04/30/23 11:06: Patient much more alert today, about to answer some movement commands and talk. She pulled out NG tube. NATIONAL ACCOUNT MANAGER evaluated at bedside and started MSOFT ground thin with straw. She will assistance with meals. suction worker working on placement. Will continue to monitor tolerance of PO intake and need for supplements. Original Note: TF via NG tube at goal rate of 65ml/hr providing 1872kcal, 86.6gm protein and 1258ml formula water. Her flush was increased at 275ml N3T=6396cr/day with the formula water total is 2900ml/day due to elevated sodium.Continues on lasix and HCTZ with edema noted, showiung improvement since admit. Weight is down to 62kg, baseline weight unknown, admit wt was 72kg with edema noted. Labs reviewed: Na 139, BUN 50, Cr 1.0, BS 136 with the high being 138. Albumin 2.3L. BM x 4 yesterday, C-diff with ABT tx in place. Skin still noted to have excoriation, preventative tx in place. Urine output 04/29 was 1425ml. Additional supplements ordered: folic acid, zinc, thiamine and KCL for additional support. Will continue POC
--- NOTE | 2023-04-30 10:12 | PC.NURSE ---
on previous shifts pt was responsive to only painful stimuli and unable to move extremeties on command. this am pt eyes are open. she is able to verbally respond to staff, but only when she chooses. pt verbally responded that she is in the hopsital. any further questions asked by this nurse, pt refuses to answer. pt is able to move her left arm and squeeze my fingers on request. pt is unable/unwilling to move right arm or squeeze fingers. pt is unwilling/unable to move ble. pt does withdraw to painful stimuli on ble when nail beds have pressure applied. pt does not withdraw from painful stimuli on rue.
--- NOTE | 2023-04-30 10:23 | PC.NURSE ---
Old dressing and packing removed from scalp laceration. wound irrigated with saline, vaseline gauze placed in wound and covered with gauze and tape. pt tolerated well. pt denied any pain.
--- NOTE | 2023-04-30 10:48 | HMH.SLDYSPHA ---
Speech & Language Evaluation Speech/Language Dysphagia Evaluation Start: 04/30/23 10:36 Freq: ONCE Status: Active Protocol: Document 04/30/23 10:36 RODNEY (Rec: 04/30/23 10:47 RODNEY [id number]) Dysphagia Assess/Goals/Plan Assessment Date of Evaluation: 04/30/23 Evaluation Type Initial Certification Assessment/Problems weak voice/ability to swallow per MD order. Does Patient Qualify for Service Yes Qualify/Failure Comment Pt would benefit from skilled speech therapy services for diet texture analysis and diet tolerance. Recommendations PHYSICIAN CERTIFICATION: The specified therapy services are required, authorized, and reviewed every 30 days. Pt will be seen # times/week 1 for # weeks 4 Diet Recommendations Mechanical Soft Liquid Type Recommendations Normal/Thin SL Swallow Guidelines Assist w/all meals,Alt bite w/ sip thru meal,Standard Aspiration Prec.,Chk mough for pocketing,Crush meds as allowed*,Oral care pre/post meals Crush Meds Crush all meds Dysphagia Swallow Precautions/Strategies Sitting Upright (90 deg),Small Bites and Sips,Alternate Liquids/Solids Place Food on Either side of Mouth Comment extra sauces/gravys with meals , and puree wash after every 2 -3 bites Plan Pt/Guardian verbally ack understanding Yes of dx/prognosis/goals G -code Required No Education Instructions provided Discussed CSE results, diet recommendations, and aspiration precautions with pt , nursing, and care management all of which expressed understanding. Pt/Caregiver able to recall information Able to recall/restate Reinforcement needed No Speech & Language HPI History Present Illness Description of Patient Problem MARKETING RECRUITER pulled following documentation from ER report dated 04/20/23, 87-year-old female who is severely altered and history is limited brought in for altered mental status. The story that we have been told is that a third -[facility] party caller that did not
--- NOTE | 2023-04-30 10:56 | EXP.ACUTE.PN ---
Subjective *Date: 04/30/23 *Time: 14:27 Interval history: Patient more alert this morning. Self extracted her NG. Told me her name this morning on rounds. Stable on room air. No fever overnight. No nausea or vomiting. Speech evaluating this morning after rounds. Denies any chest pain or shortness of breath. Medical Exam Vital signs and Labs for Last 24 Hours: Vital Signs Temp Pulse Pulse Resp BP Pulse Ox O2 Del Method 04/30/23 10:36 Room Air 04/30/23 09:40 85 91 L Room Air 04/30/23 09:00 Room Air 04/30/23 08:00 91 H 04/30/23 07:47 98.8 F 85 19 129/57 L 91 L Room Air 04/30/23 05:55 101 H 04/30/23 05:55 106 H 04/30/23 06:22 Room Air 04/30/23 04:00 90 04/30/23 04:46 Venturi Mask 04/30/23 04:00 98.8 F 97 H 15 130/48 L 95 Venturi Mask 04/30/23 03:00 Venturi Mask 04/30/23 00:00 100 H 04/29/23 20:00 100 H 04/30/23 01:00 96 H 18 129/60 93 L Venturi Mask 04/30/23 00:50 97 H 17 87 L Room Air 04/30/23 00:00 99.8 F H 95 H 17 151/58 H 90 L Room Air 04/30/23 00:44 Room Air 04/29/23 23:32 95 H 04/29/23 23:32 99 H 04/29/23 23:00 Room Air 04/29/23 21:00 Room Air 04/29/23 20:00 Room Air 04/29/23 20:00 98.4 F 103 H 15 138/58 L 93 L Room Air 04/29/23 18:33 96 H 04/29/23 18:33 97 H 04/29/23 18:20 Room Air 04/29/23 16:00 92 H 13 154/70 H 93 L Room Air 04/29/23 12:00 100 H 11 L 163/61 H 97 Venturi Mask 04/29/23 17:00 Room Air 04/29/23 15:00 Room Air 04/29/23 16:00 92 H 04/29/23 16:00 98.8 F 04/29/23 12:00 93 H 04/29/23 13:00 Venturi Mask 04/29/23 12:00 99.2 F 04/29/23 11:26 89 04/29/23 11:26 88 O2 Flow Rate FiO2 04/30/23 10:36 04/30/23 09:40 04/30/23 09:00 04/30/23 08:00 04/30/23 07:47 04/30/23 05:55 04/30/23 05:55 04/30/23 06:22 04/30/23 04:00 04/30/23 04:46 3 04/30/23 04:00 3 28 04/30/23 03:00 3 04/30/23 00:00 04/29/23 20:00 04/30/23 01:00 3 24 04/30/23 00:50 04/30/23 00:00 04/30/23 00:44 04/29/23 23:32 04/29/23 23:32 04/29/23 23:00 04/29/23 21:00 04/29/23 20:00 04/29/23 20:00 04/29/23 18:33 04/29/23 18:33 04/29/23 18:20 04/29/23 16:00 04/29/23 12:00 35 04/29/23 17:00 04/29/23 15:00 04/29/23 16:00 04/29/23 16:00 04/29/23 12:00 04/29/23 13:00 35 04/29/23 12:00 04/29/23 11:26 04/29/23 11:26 Intake and Output 04/29/23 04/30/23 04/30/23 23:59 07:59 15:59 Intake Total 1991 / 1 1510 / 1510 Output Total 575 / 2225 400 / 400 0 / 400 Balance 1417 / 996 1110 / 1110 0 / 1110 Intake: Intake, Oral Amount 0 / 0 0 / 0 Intake, Tube Feeding Amount 651 / 1220 540 / 540 Intake, Tube Irrigant Amount 1241 / 1551 620 / 620 Intake, Total IV Amount 100 / 450 350 / 350 Meropenem 0.5 gm In 0.9 % 100 / 100 Sodium Chloride 100 ml @ 100 mls/hr IV Q12 [facility] Rx#:[id number] Meropenem 1 gm In 0.9 % Sodium 100 / 100 Chloride 100 ml @ 100 mls/hr IV Q12 [facility] Rx#:[id number] Vancomycin/Water For Inj (Peg) 250 / 250 1.25 gm In 250 ml @ 125 mls/hr IV ONCE ONE Rx#:[id number] Output: Output, Urine Amount 475 / 1425 0 / 0 0 / 0 Output, Urine Amount (Catheter) 100 / 800 400 / 400 Huang 100 / 800 400 / 400 Other: Number of Unmeasured Voids 0 0 0 Number of Bowel Movements 1 1 Weight 62.051 kg 62.051 kg Patient Weight 04/30/23 23:59 Weight 62.051 kg Laboratory Results - last 24 hr 04/29/23 11:39: WBC 6.6, RBC 4.20, Hgb 10.5 L, Hct 33.4 L, MCV 79.4 L, MCH 25.0 L, MCHC 31.5 L, RDW 17.8 H, Plt Count 123 L D, MPV 11.8 H, Neut % (Auto) 80.8 H, Lymph % (Auto) 9.9 L, [place] % (Auto) 6.4, Eos % (Auto) 2.9, Baso % (Auto) 0.1, Neut # (Auto) 5.4, Lymph # (Auto) 0.7, Mon
[2023-04-30 11:24] LABS: POC Glucose,Bedside 123 (70-110)
[2023-04-30 11:24] LABS: POC Glucose,Bedside 127 (70-110)
[2023-04-30 11:25] LABS: POC Glucose,Bedside 126 (70-110)
--- NOTE | 2023-04-30 12:00 | HMH.PTEV ---
Physical Therapy Evaluation Rehab PT IP Evaluation Start: 04/22/23 07:02 Freq: ONCE Status: Complete Protocol: Document 04/22/23 10:13 ATTILA (Rec: 04/22/23 10:26 ATTILA [id number]) Subjective/History History History Pt is an 87 y/o female brought to [facility] on 04/20/23 for altered mental status. Per history & physical note, a relative called police for a neighbor wellness check out. Data is limited due to patient mental status and there is no family at bedside at the time of this interview. Apparently. patient has a son that does regular check on her. Unknown last time seen well. Per ER documentation, when EMS arrived to the patient's house there was some difficulty with getting into the house to evaluate the patient and the police had to be involved. Once they found the patient they found her in very poor living conditions with bedbugs and significant infestations of lice. No further history able to be obtained, patient admitted for further treatment , stabilization and management . Subjective Subjective Pt unable to respond to stimuli, follow simple commands such as squeeze my hand, or communicate with therapists other than a moan when her name was stated. Pt unable to look at therapist or visually track. No family was present at bedside during the evaluation therefore subjective history was unable to be obtained. New diagnosis of cancer in past 12 No months? Rehab PT IP Eval Objective Appearance Difficulty following instructions severe Rehab PT IP prob,goals,plan Problems Date of Evaluation: 04/22/23 PT IP Problems Bed Mobility,Transfers,Gait, Balance,Self care,Safety Rehab Ramy
--- NOTE | 2023-04-30 15:44 | PC.NURSE ---
Pt has rested in the room this shift. lungs are clear with scattered rhonchi. bowel sounds are active in all quads. pt has had loose stools this shift. pt is alert to self and location. ryan shampoo applied r/t pt digging at her scalp. pt also noted to be digging at areas under her breasts and in her groin. Dr Ann notified face to face of issues with itching/digging. pt was cleared for a diet by speech therapy this am. pt is a feeder
[2023-05-01] VITALS (13 sets, daily range): BP systolic 114–157; BP diastolic 50–72; PULSE 66–100; RESP 14–20; TEMP 36.2–36.9; O2SAT 92–98; BMI 25.1
--- NOTE | 2023-05-01 04:24 | PC.NURSE ---
Patient has slept well this shift. Patient has been q2H turn and oral care. Patient has been able to state name and that she is at the hospital. Placed 1L of O2 per NC for a few hours, due to sats being 87-89%. Was able to wean patient off this AM with O2 sats 90-93%. Patient's dressing on back of head is C/D/I. Midline to CLAUDIA is patent and flushing well.
[2023-05-01 06:10] LABS: POC Glucose,Bedside 120 (70-110)
[2023-05-01 07:31] LABS: Magnesium 1.7 mg/dl (1.6-2.3)
[2023-05-01 07:41] LABS: Basophils % 0.5 % (0.1-2.0); Eosinophils # 0.2 K/mm3 (0.0-0.4); Eosinophils % 3.9 % (0.1-12.0); Hemoglobin 8.6 g/dL (12.2-16.2); Lymphocytes # 0.7 K/mm3 (0.7-4.5); Mean Corpuscular HGB Conc 31.4 g/dL (31.8-35.4); Mean Corpuscular Hemoglobin 25.7 pg (27.0-31.2); Mean Corpuscular Volume 81.6 fl (81-99); Mean Platelet Volume 11.3 fl (7.4-10.4); Monocytes # 0.4 K/mm3 (0.1-1.0); Monocytes % 8.6 % (1.7-9.3); Neutrophils # 3.2 K/mm3 (1.8-7.8); Platelet Count 129 K/mm3 (142-424); Red Blood Count 3.36 M/mm3 (4.20-5.40); Red Cell Distribution Width 19.2 % (11.5-17.5); White Blood Count 4.4 K/mm3 (4.8-10.8)
[2023-05-01 07:56] LABS: Hematocrit 27.4 % (37.0-47.0)
--- NOTE | 2023-05-01 09:54 | EXP.ACUTE.PN ---
Subjective *Date: 05/01/23 *Time: 15:48 Interval history: Patient continues to show small improvements daily. Answered my questions appropriately on exam. Had choking episode with applesauce this morning. Remains afebrile no nausea or. On room air. Had 2 bowel movements yesterday. Medical Exam Vital signs and Labs for Last 24 Hours: Vital Signs Temp Pulse Pulse Resp BP Pulse Ox O2 Del Method 05/01/23 08:17 Nasal Cannula 05/01/23 07:52 97.4 F L 98 H 16 139/63 95 Nasal Cannula 05/01/23 06:43 85 05/01/23 06:43 95 Room Air 05/01/23 04:00 98.1 F 87 14 114/60 98 Nasal Cannula 05/01/23 04:00 100 H 05/01/23 00:00 90 05/01/23 06:57 Nasal Cannula 05/01/23 05:00 Room Air 05/01/23 03:00 Nasal Cannula 05/01/23 01:00 Nasal Cannula 05/01/23 00:15 92 H 05/01/23 00:15 83 04/30/23 23:52 97.7 F 88 16 108/58 L 96 Nasal Cannula 04/30/23 23:00 Room Air 04/30/23 20:00 100 H 04/30/23 21:00 Room Air 04/30/23 20:00 94 L Room Air 04/30/23 19:43 97.8 F 95 H 16 145/68 H 90 L Room Air 04/30/23 18:49 96 H 04/30/23 18:49 97 H 04/30/23 18:47 Room Air 04/30/23 17:42 Room Air 04/30/23 16:00 90 04/30/23 16:00 97.7 F 93 H 16 162/68 H 93 L Room Air 04/30/23 15:00 Room Air 04/30/23 13:40 Room Air 04/30/23 13:38 95 H 04/30/23 13:38 88 04/30/23 12:00 94 H 04/30/23 11:00 Room Air 04/30/23 11:41 97.3 F L 94 H 20 137/63 91 L Room Air 04/30/23 11:08 97 H 04/30/23 10:36 Room Air O2 Flow Rate 05/01/23 08:17 1 05/01/23 07:52 1 05/01/23 06:43 05/01/23 06:43 05/01/23 04:00 1 05/01/23 04:00 05/01/23 00:00 05/01/23 06:57 1 05/01/23 05:00 05/01/23 03:00 1 05/01/23 01:00 1 05/01/23 00:15 05/01/23 00:15 04/30/23 23:52 1 04/30/23 23:00 04/30/23 20:00 04/30/23 21:00 04/30/23 20:00 04/30/23 19:43 04/30/23 18:49 04/30/23 18:49 04/30/23 18:47 04/30/23 17:42 04/30/23 16:00 04/30/23 16:00 04/30/23 15:00 04/30/23 13:40 04/30/23 13:38 04/30/23 13:38 04/30/23 12:00 04/30/23 11:00 04/30/23 11:41 04/30/23 11:08 04/30/23 10:36 Intake and Output 04/30/23 05/01/23 05/01/23 23:59 07:59 15:59 Intake Total 340 / 2760 240 / 240 Output Total 900 / 1700 300 / 500 200 / 500 Balance -560 / 1060 -60 / -260 -200 / -260 Intake: Intake, Oral Amount 240 / 240 240 / 240 Intake, Total IV Amount 100 / 450 Iron Sucrose Complex 200 mg In 100 / 100 0.9 % Sodium Chloride 100 ml @ 220 mls/hr IV ONCE ONE Rx#: [id number] Output: Output, Urine Amount 900 / 1300 300 / 500 200 / 500 Other: Number of Voids 2 Number of Unmeasured Voids 0 0 0 Number of Bowel Movements 1 Weight 64.365 kg Patient Weight 05/01/23 23:59 Weight 64.365 kg Laboratory Results - last 24 hr 04/27/23 11:11: POC Glucose 123 H 04/27/23 17:06: POC Glucose 127 H 04/29/23 05:56: POC Glucose 120 H 04/30/23 01:18: POC Glucose 126 H 05/01/23 06:25: WBC 4.4 L D, RBC 3.36 L, Hgb 8.6 L, Hct 27.4 L, MCV 81.6, MCH 25.7 L, MCHC 31.4 L, RDW 19.2 H, Plt Count 129 L, MPV 11.3 H, Neut % (Auto) 72.0, Lymph % (Auto) 15.0, [place] % (Auto) 8.6, Eos % (Auto) 3.9, Baso % (Auto) 0.5, Neut # (Auto) 3.2, Lymph # (Auto) 0.7, [place] # (Auto) 0.4, Eos # (Auto) 0.2, Baso # (Auto) 0.0, Magnesium 1.7 D I & O for Labs for Last 24 Hours: Intake & Output 04/28/23 04/29/23 04/30/23 05/01/23 23:59 23:59 23:59 23:59 Intake Total 555 / 666 2249 / 3221 2760 / 2760 240 / 240 Output Total 1525 / 1725 1925 / 2225 1700 / 1700 500 / 500 Balance -970 / -1059 324 / 996 1060 / 1060 -260 / -260 Weight 71.849 kg 61.5 kg 62.051 kg 64.365 kg Constitutional: Present no acute distress, average body habitus, chronically ill appearing and cooperative Head: Present normocephalic
[2023-05-01 10:04] LABS: Alanine Aminotransferase 19 U/L (12-78); Albumin Level 2.2 g/dl (3.5-5.0); Albumin/Globulin Ratio 0.8 (1.1-1.8); Alkaline Phosphatase 60 U/L (38-126); Aspartate Amino Transferase 36 U/L (14-36); Bilirubin,Total 0.5 mg/dl (0.2-1.3); Blood Urea Nitrogen 41 mg/dl (7-17); Calcium 7.3 mg/dl (8.4-10.2); Chloride 93 mmol/L (98-107); Creatinine Clearance Estimated 40 mL/min (50-200); Estimated Glomerular Filt Rate 59 ml/min (>60); GFR (African American) 72 ML/MIN (>60); Globulin 2.8 g/dL (1.3-3.2); Glucose 89 mg/dl (74-100); Potassium 3.9 mmoL/L (3.5-5.1); Sodium 134 mmol/L (136-145)
--- NOTE | 2023-05-01 10:12 | EXP.PULM.PN ---
Subjective *Date: 05/01/23 *Time: 11:23 Interval history: No acute respiratory events overnight. Continued to be receiving 0 to 1 L nasal cannula oxygen supplementation intermittently. Pulmonology Exam Inpatient Vital signs and Labs for Last 24 Hours: Temp Pulse Resp BP Pulse Ox O2 Del Method O2 Flow Rate 97.4 F L 98 H 16 139/63 95 Nasal Cannula 1 05/01/23 07:52 05/01/23 07:52 05/01/23 07:52 05/01/23 07:52 05/01/23 07:52 05/01/23 08:17 05/01/23 08:17 FiO2 28 04/30/23 04:00 Laboratory Results - last 24 hr 04/27/23 11:11: POC Glucose 123 H 04/27/23 17:06: POC Glucose 127 H 04/29/23 05:56: POC Glucose 120 H 04/30/23 01:18: POC Glucose 126 H 05/01/23 06:25: WBC 4.4 L D, RBC 3.36 L, Hgb 8.6 L, Hct 27.4 L, MCV 81.6, MCH 25.7 L, MCHC 31.4 L, RDW 19.2 H, Plt Count 129 L, MPV 11.3 H, Neut % (Auto) 72.0, Lymph % (Auto) 15.0, [place] % (Auto) 8.6, Eos % (Auto) 3.9, Baso % (Auto) 0.5, Neut # (Auto) 3.2, Lymph # (Auto) 0.7, [place] # (Auto) 0.4, Eos # (Auto) 0.2, Baso # (Auto) 0.0, Sodium 134 L, Potassium 3.9, Chloride 93 L, BUN 41 H, Creatinine 0.90, Estimated Creat Clear 40, Estimated GFR 59, Est GFR ( Amer) 72, Glucose 89, Calcium 7.3 L, Magnesium 1.7 D, Total Bilirubin 0.5, AST 36, ALT 19, Alkaline Phosphatase 60, Total Protein 5.0 L, Albumin 2.2 L, Globulin 2.8, Albumin/Globulin Ratio 0.8 L I & O for Labs for Last 24 Hours: Intake & Output 04/28/23 04/29/23 04/30/23 05/01/23 23:59 23:59 23:59 23:59 Intake Total 555 / 666 2249 / 3221 2760 / 2760 240 / 240 Output Total 1525 / 1725 1925 / 2225 1700 / 1700 500 / 500 Balance -970 / -1059 324 / 996 1060 / 1060 -260 / -260 Weight 158 lb 6.4 oz 135 lb 9.349 oz 136 lb 12.8 oz 141 lb 14.4 oz Microbiology Reports for the Last 24 Hours: Microbiology 04/20/23 16:23 Blood Blood Culture - Final Constitutional: Present severe distress Head: Present normocephalic and laceration; Absent atraumatic Comment:: Laceration/gaping wound in her occipital area Neck: Present normal inspection and full ROM Respiratory: Present normal respiratory effort; Absent respiratory distress, rhonchi or diminished air movement Cardiac: Present S1/S2, Tachycardia and radial pulses present GI: Present soft and distention; Absent tenderness or guarding Rectal (female): Present deferred (female): Present deferred Skin: Present intact; Absent cyanosis or jaundice Neuro: Present alert and awake; Absent oriented x 3 Extremities: Present normal inspection and edema; Absent clubbing or cyanosis Assessment and Plan *Assessment and plan (1) Pneumonia: Status: Acute Qualifiers: Laterality: left Lung location: lower lobe of lung Pneumonia type: due to unspecified organism Qualified Code(s): J18.9 - Pneumonia, unspecified organism Category: Medical Code(s): J18.9 - Pneumonia, unspecified organism (2) Acute respiratory failure with hypoxia: Status: Acute Category: Medical Code(s): J96.01 - Acute respiratory failure with hypoxia Plan Ms. Montilla is a 87-year-old female was brought to the hospital status post found down and altered mental status. Patient barely responds to verbal stimuli. Grimacing to pain. Chest x-ray no significant dense consolidation. Left pleural effusion//atelectasis. GORGE and hyponatremia noted. Hemoglobin of 6.4 dropped from 8.2 on admission. Received fluids History of COVID-19 pneumonia and PE on 03/26/2021 with a plan to continue anticoagulation for 3 months at that time. Echo from 04/07/2021 normal EF. Lower extremity venous Doppler negative. Status post units of transfusion hemoglobin normal. Serum CK levels within normal limits On initial examination auscultation bilateral rhonchorous breath sounds. On nonrebreather saturating 100%. Echocardiogram showed severe aortic stenosis. Echo from 2020 showed moderate stenosis. Interval update: No acute respiratory vents overnight. Improving respiratory status. Weaned to r
[2023-05-01 10:50] LABS: Anion Gap 1.9 mEq/L (5-15); Carbon Dioxide 43 mmol/L (22.0-30.0)
--- NOTE | 2023-05-01 12:00 | DIET.NUTRFU ---
Reviewed menu with daughter and patient to choose food she would like for dinner and tomorrow. she likes yogurt, will add that with try for extra protein that is smooth and easy to eat. She is currently tolerating MSOFT diet, having some pocketing issues. ELECTRONIC NEWS GATHERING EDITOR is still working with her on the [employer]. Upon visit daughter had brought her some sprite she seemed to like and some cookies. She typically likes sweets, sherbert/ice cream and cookies. Talked to daughter about supplements available and she wanted to started ensure either chocolate or strawberry with her trays. Labs reviewed. I/O's reviewed,only 1 BM noted yesterday and urine output continues to be good at 1300ml. progress worker working on placement and APS was coming to visit as a was leaving. Will continue to monitor diet tolerance and meal intake.
--- NOTE | 2023-05-01 18:28 | PC.NURSE ---
PT IS RESTING IN BED. ALERT TO SELF AND PLACE ONLY. PT WILL ANSWER SIMPLE QUESTIONS AND FOLLOW SIMPLE COMMANDS. EATING AN DRINKING FAIR. LUNG SOUNDS DIMINISHED. ABDOMEN SOFT/NON TENDER WITH ACTIVE BOWEL SOUNDS. PT HAS MULTIPLE AREAS OF EXCORIATION NOTED TO BREAST/BUTTOCKS/KEON AREA. SWELLING NOTED TO THE RIGHT ARM. PT WAS A TOTAL ASSIST TO SIT UP ON THE SOB WITH PT/OT. O2 SATURATION HAS MAINTAINED 92-96% ON 1 L NC. PT WAS TOLERATING ROOM AIR FOR A COUPLE OF HOURS THIS AFTERNOON AND DESATTED WHILE SLEEPING TO 78%. TURNED AND REPOSITIONED FREQUENTLY. ORAL CARE PROVIDED. DRESSING TO LACERATION ON THE HEAD CHANGED THIS SHIFT. WILL CONTINUE TO MONITOR.
--- NOTE | 2023-05-01 18:42 | PC.NURSE ---
NOTIFIED PT'S SON FOR HIM TO BRING PT'S GLASSES AND DENTURES. PT'S SON DID BRING PT'S GLASSES BUT STATED HE WAS UNABLE FIND DENTURES.
[2023-05-02] VITALS (9 sets, daily range): BP systolic 130–139; BP diastolic 53–66; PULSE 66–94; RESP 14–18; TEMP 36.2–36.6; O2SAT 96–100; BMI 24.1
[2023-05-02 05:58] LABS: Chloride 93 mmol/L (98-107); Potassium 3.5 mmoL/L (3.5-5.1); Sodium 136 mmol/L (136-145)
[2023-05-02 06:00] LABS: Alanine Aminotransferase 19 U/L (12-78); Aspartate Amino Transferase 35 U/L (14-36); Blood Urea Nitrogen 36 mg/dl (7-17); Creatinine Clearance Estimated 39 mL/min (50-200); Estimated Glomerular Filt Rate 59 ml/min (>60); GFR (African American) 72 ML/MIN (>60)
[2023-05-02 06:01] LABS: Albumin Level 2.4 g/dl (3.5-5.0); Albumin/Globulin Ratio 0.8 (1.1-1.8); Alkaline Phosphatase 69 U/L (38-126); Bilirubin,Total 0.6 mg/dl (0.2-1.3); Calcium 7.6 mg/dl (8.4-10.2); Globulin 2.9 g/dL (1.3-3.2); Glucose 89 mg/dl (74-100); Magnesium 1.7 mg/dl (1.6-2.3); Phosphorous 3.9 mg/dl (2.5-4.5); Total Protein,Serum 5.3 g/dl (6.3-8.2)
[2023-05-02 06:08] LABS: Anion Gap 2.5 mEq/L (5-15); Carbon Dioxide 44 mmol/L (22.0-30.0)
--- NOTE | 2023-05-02 10:02 | EXP.PULM.PN ---
Subjective *Date: 05/02/23 *Time: 11:12 Interval history: No acute respiratory vents overnight. Stable oxygen requirements. Pulmonology Exam Inpatient Vital signs and Labs for Last 24 Hours: Temp Pulse Resp BP Pulse Ox O2 Del Method O2 Flow Rate 97.4 F L 74 16 139/53 L 98 Nasal Cannula 2 05/02/23 07:46 05/02/23 07:46 05/02/23 07:46 05/02/23 07:46 05/02/23 07:46 05/02/23 08:00 05/02/23 08:00 FiO2 28 04/30/23 04:00 Laboratory Results - last 24 hr 05/01/23 06:25: Sodium 134 L, Potassium 3.9, Chloride 93 L, Carbon Dioxide 43 H*, Anion Gap 1.9 L, BUN 41 H, Creatinine 0.90, Estimated Creat Clear 40, Estimated GFR 59, Est GFR ( Amer) 72, Glucose 89, Calcium 7.3 L, Total Bilirubin 0.5, AST 36, ALT 19, Alkaline Phosphatase 60, Total Protein 5.0 L, Albumin 2.2 L, Globulin 2.8, Albumin/Globulin Ratio 0.8 L 05/02/23 05:41: Sodium 136, Potassium 3.5, Chloride 93 L, Carbon Dioxide 44 H*, Anion Gap 2.5 L, BUN 36 H, Creatinine 0.90, Estimated Creat Clear 39, Estimated GFR 59, Est GFR ( Amer) 72, Glucose 89, Calcium 7.6 L, Phosphorus 3.9, Magnesium 1.7, Total Bilirubin 0.6, AST 35, ALT 19, Alkaline Phosphatase 69, Total Protein 5.3 L, Albumin 2.4 L, Globulin 2.9, Albumin/Globulin Ratio 0.8 L I & O for Labs for Last 24 Hours: Intake & Output 04/29/23 04/30/23 05/01/23 05/02/23 23:59 23:59 23:59 23:59 Intake Total 2249 / 3221 2760 / 2760 1140 / 1140 240 / 240 Output Total 1925 / 2225 1700 / 1700 850 / 850 0 / 0 Balance 324 / 996 1060 / 1060 290 / 290 240 / 240 Weight 135 lb 9.349 oz 136 lb 12.8 oz 141 lb 14.4 oz 136 lb 4.8 oz Microbiology Reports for the Last 24 Hours: Microbiology 04/29/23 20:16 Blood Blood Culture - Preliminary Constitutional: Present severe distress Head: Present normocephalic and laceration; Absent atraumatic Comment:: Laceration/gaping wound in her occipital area Neck: Present normal inspection and full ROM Respiratory: Present normal respiratory effort; Absent respiratory distress, rhonchi or diminished air movement Cardiac: Present S1/S2, Tachycardia and radial pulses present GI: Present soft and distention; Absent tenderness or guarding Rectal (female): Present deferred (female): Present deferred Skin: Present intact; Absent cyanosis or jaundice Neuro: Present alert and awake; Absent oriented x 3 Extremities: Present normal inspection and edema; Absent clubbing or cyanosis Assessment and Plan *Assessment and plan (1) Pneumonia: Status: Acute Qualifiers: Laterality: left Lung location: lower lobe of lung Pneumonia type: due to unspecified organism Qualified Code(s): J18.9 - Pneumonia, unspecified organism Category: Medical Code(s): J18.9 - Pneumonia, unspecified organism (2) Acute respiratory failure with hypoxia: Status: Acute Category: Medical Code(s): J96.01 - Acute respiratory failure with hypoxia Plan Ms. Montilla is a 87-year-old female was brought to the hospital status post found down and altered mental status. Patient barely responds to verbal stimuli. Grimacing to pain. Chest x-ray no significant dense consolidation. Left pleural effusion//atelectasis. GORGE and hyponatremia noted. Hemoglobin of 6.4 dropped from 8.2 on admission. Received fluids History of COVID-19 pneumonia and PE on 03/26/2021 with a plan to continue anticoagulation for 3 months at that time. Echo from 04/07/2021 normal EF. Lower extremity venous Doppler negative. Status post units of transfusion hemoglobin normal. Serum CK levels within normal limits On initial examination auscultation bilateral rhonchorous breath sounds. On nonrebreather saturating 100%. Echocardiogram showed severe aortic stenosis. Echo from 2020 showed moderate stenosis. Interval update: Stable respiratory status. No acute respiratory vents overnight. Patient responding to verbal commands. Denies any pain. Plan: Continue nasal oxy supplementation as needed to main
--- NOTE | 2023-05-02 10:04 | PC.NURSE ---
courtesy tech note: pt rounded on. pt resting during round. no verbalized needs at this time. call light w/in reach.
--- NOTE | 2023-05-02 11:39 | EXP.ACUTE.PN ---
Subjective *Date: 05/02/23 *Time: 11:39 Interval history: Patient continues to show small improvements daily. Answered my questions appropriately on exam. Had choking episode with applesauce this morning. Remains afebrile no nausea or. On room air. Had 2 bowel movements yesterday. Medical Exam Vital signs and Labs for Last 24 Hours: Vital Signs Temp Pulse Pulse Resp BP Pulse Ox O2 Del Method 05/02/23 11:00 Nasal Cannula 05/02/23 09:00 Nasal Cannula 05/02/23 08:00 80 05/02/23 10:18 76 05/02/23 08:00 Nasal Cannula 05/02/23 07:46 97.4 F L 74 16 139/53 L 98 Nasal Cannula 05/02/23 05:00 Nasal Cannula 05/02/23 04:00 80 05/02/23 04:00 97.8 F 66 17 136/56 L 96 Nasal Cannula 05/02/23 03:00 Nasal Cannula 05/02/23 01:00 Nasal Cannula 05/02/23 00:00 70 05/01/23 23:53 97.7 F 83 18 139/68 95 Nasal Cannula 05/01/23 20:00 Nasal Cannula 05/01/23 23:00 Nasal Cannula 05/01/23 21:00 Nasal Cannula 05/01/23 20:00 70 05/01/23 19:47 98.5 F 91 H 17 157/63 H 95 Nasal Cannula 05/01/23 18:20 Nasal Cannula 05/01/23 17:00 Nasal Cannula 05/01/23 16:00 90 05/01/23 15:00 Nasal Cannula 05/01/23 15:23 97.1 F L 66 16 129/50 L 96 Room Air 05/01/23 12:00 90 05/01/23 13:00 Nasal Cannula O2 Flow Rate 05/02/23 11:00 2 05/02/23 09:00 2 05/02/23 08:00 05/02/23 10:18 05/02/23 08:00 2 05/02/23 07:46 2 05/02/23 05:00 1 05/02/23 04:00 05/02/23 04:00 1 05/02/23 03:00 1 05/02/23 01:00 1 05/02/23 00:00 05/01/23 23:53 1 05/01/23 20:00 1 05/01/23 23:00 1 05/01/23 21:00 1 05/01/23 20:00 05/01/23 19:47 1 05/01/23 18:20 1 05/01/23 17:00 1 05/01/23 16:00 05/01/23 15:00 1 05/01/23 15:23 05/01/23 12:00 05/01/23 13:00 1 Intake and Output 05/01/23 05/02/23 05/02/23 23:59 07:59 15:59 Intake Total 540 / 1140 240 / 240 Output Total 350 / 850 0 / 0 0 / 0 Balance 190 / 290 0 / 240 240 / 240 Intake: Intake, Oral Amount 240 / 840 240 / 240 Intake, Total IV Amount 300 / 300 Vancomycin/Water For Inj (Peg) 300 / 300 1.5 gm In 300 ml @ 150 mls/hr IV ONCE ONE Rx#:[id number] Output: Output, Urine Amount 350 / 850 0 / 0 0 / 0 Other: Number of Unmeasured Voids 1 1 1 Weight 61.825 kg Patient Weight 05/02/23 23:59 Weight 61.825 kg Laboratory Results - last 24 hr 05/02/23 05:41: Sodium 136, Potassium 3.5, Chloride 93 L, Carbon Dioxide 44 H*, Anion Gap 2.5 L, BUN 36 H, Creatinine 0.90, Estimated Creat Clear 39, Estimated GFR 59, Est GFR ( Amer) 72, Glucose 89, Calcium 7.6 L, Phosphorus 3.9, Magnesium 1.7, Total Bilirubin 0.6, AST 35, ALT 19, Alkaline Phosphatase 69, Total Protein 5.3 L, Albumin 2.4 L, Globulin 2.9, Albumin/Globulin Ratio 0.8 L I & O for Labs for Last 24 Hours: Intake & Output 04/29/23 04/30/23 05/01/23 05/02/23 23:59 23:59 23:59 23:59 Intake Total 2249 / 3221 2760 / 2760 1140 / 1140 240 / 240 Output Total 1925 / 2225 1700 / 1700 850 / 850 0 / 0 Balance 324 / 996 1060 / 1060 290 / 290 240 / 240 Weight 61.5 kg 62.051 kg 64.365 kg 61.825 kg Microbiology Reports for the Last 24 Hours: Microbiology 04/29/23 20:16 Blood Blood Culture - Preliminary Constitutional: Present no acute distress, average body habitus, chronically ill appearing and cooperative Head: Present normocephalic ENT: Present mucous membranes moist Comment:: Bandage on laceration on back of skull Neck: Present normal inspection Respiratory: Present rhonchi and normal respiratory effort; Absent wheezes Cardiac: Present Regular Rate and Systolic Murmur Comment:: Irregular rhythm GI: Present soft and normal bowel sounds; Absent distention or tenderness Rectal (female): Present deferred Extremities: Present full ROM; Absent tenderness Comment:: Stasis dermatitis lower extremities, wrink
--- NOTE | 2023-05-02 13:27 | EXP.DC.SUM ---
General Admission date:: 04/20/23 Discharge date: 05/02/23 HPI HPI HPI: Patient is an 87-year-old female with no known medical history other than hypertension. Apparently relative was performing wellness check on the patient at her residence. Patient was noted to be in very poor living conditions with significant mental status changes, hypothermia, profound lice infestation and bedbugs. Evaluation in the emergency department revealed findings consistent with sepsis criteria with some endorgan dysfunction. She was admitted for inpatient management. She has been on 2 L nasal cannula. However she is on broad-spectrum antibiotics and pressors. Due to the significant lice infestation permission was granted by patient's family to shave that the patient's head in an effort to control infestation. Upon doing so she was noted to have a laceration of undetermined age with a lot of dried blood in the hair. Surgery was consulted for recommendations regarding management. Hospital Course Hospital Course Hospital Course: 87-year-old female with no other known medical history other than hypertension brought for AMS. been found down at home for unknown period of time. On arrival sepsis protocols was activated since patient was visible altered and hypothermic. Patient responded well to antibiotics and initial treatment. Transition from tube feeds to modified diet. Has completed antibiotic courses. Speech, PT, OT working with patient daily. Patient was referred to rehab for further management. Has graciously been accepted by [facility]. Stable for discharge to next site of care for continued rehab and therapy. Problems addressed as follows: -community acquired PNA and UTI: - Pulmonology consulted to assist with critical care and pneumonia. Initially on broad-spectrum antibiotics. Patient responded well and has transition to 1 to 2 L of oxygen for comfort. Requires oxygen at night because she desats into the 80s but otherwise is in the 90s during the day. Chest imaging during admission showed pulmonary edema secondary to her severe aortic stenosis. Has been diuresing daily very well. Initially had some blood cultures that were positive but they were mixed pathogens, unclear the significance as patient clinically improved. Repeat blood cultures appear to show contaminant as only 1 set grew positive at over 56 hours. Stable for discharge at this time to [facility] site of care. No indication for further antibiotics at this point. - C. difficile diarrhea -Diagnosed with diarrhea on admission. Stool culture positive for C. difficile. Has completed 10 days of oral vancomycin by day of discharge. Recommend continuing fiber supplementation to decrease loose stools. Continue probiotics. - Severe protein calorie malnutrition Nutrition consulted, patient meeting criteria for severe protein calorie nutrition. Initially receiving tube feeds before her strength that improved. Multiple discussions with family, they have no interest in a feeding tube. Patient is on mechanical soft diet after speech eval. Tolerating well. Continue assistance with feeds. - Anemia secondary to blood loss and iron deficiency Severe anemia on admission with hemoglobin of 6.6. Was transfused 2 units at that time. Responded well with hemoglobin improvement above 7. Hemoglobin has been stable in the 8-9 range during remainder of admission. Received 2 doses of IV iron (Venofer 200 mg). Would benefit from 3 more doses to complete full course. Iron studies showed severe iron deficiency anemia. - Severe aortic stenosis -Atrial fibrillation Echocardiogram obtained showing severe aortic stenosis. EF estimated 50-55%. Moderate to severe TR, severe aortic stenosis, moderate MR. Biatrial dilation. RVSP 55+. Cardiology was consulted, recommend continuing Lasix 40 mg daily. Was started on digoxin for A-fib initially noted on admission. Has been in sinus rhythm since starting this medi
--- NOTE | 2023-05-02 13:35 | PC.NURSE ---
EMS notified for transport.
--- NOTE | 2023-05-02 14:20 | PC.NURSE ---
Attempted to titrate O2 down. Pt upper 80s on RA. O2 2L NC placed back on. Sats 92%
--- NOTE | 2023-05-02 14:46 | PC.NURSE ---
Report given to Dora at [facility].
--- NOTE | 2023-05-02 18:31 | PC.NURSE ---
[facility] updated on [facility]. Will be closer to 2200. OK to proceed with transport.
--- NOTE | 2023-05-02 20:11 | PC.NURSE ---
Patient left floor with EMS via stretcher at 20:10.
--- NOTE | 2023-05-02 20:12 | PC.NURSE ---
called stefanie jones ot inform them the patient left with ems and headed that way
== END 2023-05-02 20:08 | DRG 871 ==
LOC: ER 16:29 → 2ND 19:29
PROVIDERS: Internal Medicine Adolescent Medicine; Internal Medicine Pulmonary Disease; Nurse Practitioner; Nurse Practitioner Family; Surgery; Admitting Provider Internal Medicine; Emergency Provider Student in an Organized Health Care Education/Training Program; Visit Provider Internal Medicine
DX: A41.9 Sepsis, unspecified organism (principal); E43 Unspecified severe protein-calorie malnutrition; G92.9 Unspecified toxic encephalopathy; J18.9 Pneumonia, unspecified organism; J96.01 Acute respiratory failure with hypoxia; N39.0 Urinary tract infection, site not specified; T76.01XA Adult neglect or abandonment, suspected, initial encounter; N17.9 Acute kidney failure, unspecified; R57.9 Shock, unspecified; A04.72 Enterocolitis due to Clostridium difficile, not specified as recurrent; I5A Non-ischemic myocardial injury (non-traumatic); R65.20 Severe sepsis without septic shock; R68.0 Hypothermia, not associated with low environmental temperature; I35.0 Nonrheumatic aortic (valve) stenosis; Z86.16 Personal history of COVID-19; B85.0 Pediculosis due to Pediculus humanus capitis; W57.XXXA Bitten or stung by nonvenomous insect and other nonvenomous arthropods, initial encounter; I10 Essential (primary) hypertension; I48.91 Unspecified atrial fibrillation; Z86.711 Personal history of pulmonary embolism; D64.9 Anemia, unspecified; Z68.24 Body mass index [BMI] 24.0-24.9, adult; D69.6 Thrombocytopenia, unspecified; S01.01XA Laceration without foreign body of scalp, initial encounter
CPT/HCPCS: 36410; 36415; 70450; 71045; 74018; 80048; 80053; 80202; 81001; 82272; 82550; 82607; 82728; 82746; 82803; 82962; 83540; 83550; 83605; 83735; 84100; 84443; 84484; 85014; 85018; 85025; 85651; 85730; 86140; 86850; 87040; 87086; 87506; 92526; 92610; 93005; 93306; 93970; 93971; 94640; 94761; 97163; 97167; 97530; 97535; 99291; G0328; J0282; J0692; J1756; J1956; J2185; J3475; J7060; P9016; P9047